=== PATIENT | female | born 1950 | race Caucasian/White ===

== ENCOUNTER 2019-01-09 12:05 | Inpatient (IN) ==
[2019-01-09] MEDS ORDERED: SODIUM CHLORIDE 0.9% 1000ML 1,000 ML IV ONE (12:33)
[2019-01-09] MEDS ORDERED: MoRPHine SULFATE 4 MG/ML 1 ML CARP\\VIAL IV STA (12:33)
[2019-01-09] MEDS ORDERED: ONDANSETRON INJ 2 MG/ML 2 ML VIAL IV STA ×2 (12:33→15:51)
[2019-01-09 13:09] LABS: Basophils # (auto) 0.03 K/uL (0-0.2); Basophils % (auto) 0.4 %; Eosinophils # (auto) 0.11 K/uL (0-0.5); Eosinophils % (auto) 1.5 %; Hematocrit (blood only) 34.8 % (37-47); Hemoglobin 11.5 g/dL (12.0-16.0); Immature Granulocytes # (auto) 0.01 K/uL (0.00-0.02); Immature Granulocytes % (auto) 0.1 %; Lymphocytes % (auto) 14.7 %; Mean Corpuscular Volume 87.9 fL (80-100); Mean Platelet Volume 9.8 fL (7.4-10.4); Monocytes # (auto) 0.36 K/uL (0.11-0.59); Monocytes % (auto) 4.8 %; Neutrophils # (auto) 5.89 K/uL (1.4-6.5); Neutrophils % (auto) 78.5 %; Platelet Count 192 K/uL (130-400); RDW Coefficient of Variation 15.1 % (11.5-14.5); RDW Standard Deviation 48.6 fL (36.4-46.3); Red Blood Count 3.96 M/uL (4.2-5.4)
[2019-01-09 13:20] LABS: Prothrombin Time 10.5 Seconds (9.0-12.0)
[2019-01-09 13:21] LABS: Appearance Urine Clear (Clear); Bilirubin Urine Negative (Negative); Blood Urine Negative (Negative); Color Urine Yellow; Glucose Urine UA Negative (Negative); Ketones Urine Negative (Negative); Leukocyte Esterase Urine Negative (Negative); Nitrite Urine Negative (Negative); Protein Urine Negative (Negative); Specific Gravity Urine 1.012 (1.000-1.030); Urobilinogen Urine Negative (Negative)
[2019-01-09 13:30] LABS: Alanine Aminotransferase 14 U/L (12-78); Albumin Level 3.9 gm/dl (3.4-5.0); Aspartate Aminotransferase 10 U/L (15-37); BUN Creatinine Ratio 10.6 (10-20); Blood Urea Nitrogen 7 mg/dl (7-18); Calcium 9.3 mg/dl (8.5-10.1); Carbon Dioxide 29 mmol/L (21-32); Chloride 105 mmol/L (98-107); Creatinine Clr Calc Pharmacy 67.3 ml/min; Est GFR (African American) 103.9; Est GFR (Non-African American) 89.7; Glucose 96 mg/dl (70-99); Potassium 3.7 mmol/L (3.5-5.1); Sodium 142 mmol/L (136-145)
[2019-01-09 13:34] LABS: Albumin Globulin Ratio 1.1 (0.9-2); Alkaline Phosphatase 66 U/L (45-117); Bilirubin,Total 0.3 mg/dl (0.2-1); Globulin 3.4 gm/dl (2.5-4.0); Total Protein 7.3 gm/dl (6.4-8.2); Troponin I < 0.015 ng/ml (0-0.045)
[2019-01-09] MEDS ORDERED: IOVERSOL 100ml IV PRN (14:17)
--- NOTE | 2019-01-09 15:17 | CT Scan Report ---
ABDOMEN AND PELVIS CT WITH IV CONTRAST CT DOSE: 323.00 mGy.cm HISTORY: Acute abdominal pain with nausea and vomiting abd pain, n/v TECHNIQUE: Multiaxial CT images of the abdomen and pelvis were performed following the use of intrave nous contrast. A dose lowering technique was utilized adhering to the principles of ALARA. COMPARISON STUDY: CT abdomen pelvis 12/04/2017. FINDINGS: Lung bases appear clear. No pneumatosis or pneumoperitoneum. The imaged inferior cardiac chambers ronnie ear unremarkable. Spleen, pancreas, adrenal glands and gallbladder appear unremarkable. The liver is also within normal limits. Kidneys and ureters are within normal limits. Partial distention of the bl adder with mild wall thickening. Postoperative changes from interval hysterectomy. No adnexal mass le sions. Moderate mixed plaque of the abdominal aorta without aneurysm. No adenopathy. Postoperative changes from recent partial sigmoid colon resection with colocolonic anastomosis. Anast omotic site appears intact. Mild to moderate fecal retention. Visualized appendix appears normal. Pos toperative changes from partial small bowel resection with [id number] anastomosis about the deep pe lvis on image 349 series 3. Dilated small bowel loops proximal to the anastomotic site with small bow el feces sign, bowel wall thickening, interloop edema with trace reactive ascites. Mild nonspecific n odularity is noted within the retroperitoneum adjacent to the descending colon suggestive of vascular structures or postoperative change. Postoperative changes of the ventral abdominal wall with mild st randing noted about the umbilical distribution. No drainable fluid collection. Degenerative changes o f the spine, pelvis and hips. No suspicious lytic or blastic bony lesions. Suggested filling defect n oted about the inferior mesenteric vein (for example see image 157 of series 3). IMPRESSION: 1. Postoperative changes from interval hysterectomy with partial sigmoid colon resection and partial small bowel resection with [id number] enteroenteric anastomosis about the central lower pelvis. Par tial small bowel obstruction with transition point at the anastomotic site is noted with dilated smal l bowel loops proximally with associated bowel wall thickening, mild interloop edema and trace reacti ve ascites. 2. No pneumatosis or pneumoperitoneum. 3. Mixing artifact versus thrombosis of the left inferior mesenteric vein. 4. Additional findings as above. Electronically signed by: Elton Nam M.D. 01/09/2019 3:15 PM
[2019-01-09] MEDS ORDERED: LORazepam 0.5 MG/1 ML VIAL IV STA (15:51)
--- NOTE | 2019-01-09 16:50 | History & Physical Report ---
Date of Service January 09, 2019 Assessment & Plan (1) Partial small bowel obstruction: -Admit to [facility] -Patient presenting from home with reports of abdominal pain that began this morning -In the ED, CT ABD/pelvis showing partial small bowel obstruction at anastomosis point of recent colon resection -Obstruction likely due to adhesions from recent surgery (DULCE MARIA-BSO, omentectomy, low anterior resection, small bowel resection on 10/27/2018 at [facility]) -Abdomen currently soft, no vomiting; will hold on NG at this time -Check lactic acid -Continue supportive care with n.p.o., IVF, pain and nausea control -Follow-up KUB in the morning -General surgery consult (2) Endometrial adenocarcinoma: -Underwent surgery as outlined above -Completed carbo/Taxol 09/2018 -To follow-up with Dr. Tree loza regarding starting maintenance chemotherapy (3) GERD (gastroesophageal reflux disease): (4) Barretts esophagus: -Continue PPI (5) Anxiety: -Continue citalopram (6) DVT prophylaxis: -SQ heparin History of Present Illness Chief Complaint: Abdominal pain Primary Care Provider: Whitney Black MD 68-year-old female who presents to the ED with abdominal pain. Patient underwent DULCE MARIA-BSO, omentectomy, low anterior resection, small bowel resection on 10/27/2018 at [facility] due to endometrial cancer involving the rectosigmoid colon. Postoperative course was complicated by pelvic abscess which required to drain placements and patient was treated with antibiotics. Drains have since been removed and patient completed antibiotics. She reports that ever since her init ial surgery, she has been having small, frequent bowel movements. She reports most the time they are formed however sometimes are loose. She reports going 7- 10 times per day. This morning, patient developed epigastric and lower abdominal pain. She reports she drank some coffee and then had emesis immediately following. She denies hematemesis or coffee-ground emesis. No bright bleeding per rectum or dark tarry stools. She denies abdominal distention. Last bowel movement was last evening. She denies fevers and chills. No chest pain or shortness of breath. She denies lightheadedness, d izziness, diaphoresis, syncopal events. No urinary symptoms. In the ED, CT ABD/pelvis is showing partial small bowel obstruction with transition point at the anastomotic site. Patient was given IVF, IV Zofran, IV morphine, IV lorazepam. Allergies Allergy/AdvReac Type Severity Reaction Status Date / Time Penicillins Allergy Severe FACIAL Verified 01/09/19 12:54 SWELLING, RASH Sulfa (Sulfonamide Allergy Severe VOMITING Verified 01/09/19 12:54 Antibiotics) Home Medications Home Medications Medication Instructions Recorded Confirmed Type citalopram 5 mg PO QAM 03/25/18 01/09/19 History qvrgbaaydpu-cdsidmetj-ais C-Mn 1 cap PO QAM 03/25/18 01/09/19 History [Glucosamine Chondroitin MaxStr] omeprazole 20 mg PO QAM 03/25/18 01/09/19 History gabapentin [Neurontin] 100 mg PO HS 09/25/18 01/09/19 History fluticasone propionate [Flonase 2 spray INTRANASAL DAILY PRN 01/09/19 01/09/19 History Allergy Relief] ibuprofen [Advil] 800 mg PO HS 01/09/19 01/09/19 History montelukast [Singulair] 10 mg PO DAILY PRN 01/09/19 01/09/19 History ondansetron HCl [Zofran] 8 mg PO TID PRN 01/09/19 01/09/19 History Past Med/Surg History Medical History Barretts esophagus (Chronic) Endometrial adenocarcinoma (Chronic) Anxiety (Chronic) GERD (gastroesophageal reflux disease) (Chronic) Hiatal hernia (Chronic) Diverticular disease (Chronic) Osteoarthritis (Chronic) Fatty liver disease, nonalcoholic (Chronic) Surgical History S/P small bowel resection (Chronic) S/P DULCE MARIA-BSO (Chronic) Status post chemotherapy (Chronic) PT REPORTS FIRST CHEMO TX 05/14/18 History of adenoidectomy (Chronic) History of tonsillectomy (Chronic) History of cataract surgery (Chronic) BILATERAL History of bilateral tubal ligation (Chronic) Family History Sister Family hx of colon cancer Father Heart disease Mother Heart disease Social History Preferred Language: Ecuadorean Communication Ability: Effective 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 Farm 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: No Beliefs That Will Affect Care: None Current Living Situation: Spouse Feels Safe at Home: Yes Smoking Status: Former smoker Tobacco Type: cigarettes ; Second Hand Exposure: No ; Hx Alcohol Use: No Hx Substance Use: No Review of Systems Review of Systems: ROS per HPI, all other systems reviewed and negative Physical Exam Constitutional: WD/WN, vitals as above Eyes: PERRL, conjunctivae normal, anicteric sclerae ENMT: external ear and nose normal, oropharynx normal Respiratory: normal respiratory effort, lungs clear to auscultation Cardiovascular: Rate/Rhythm: regular rate and regular rhythm Vessels: normal peripheral pulses Extremities: no edema Gastrointestinal (Abdomen): Inspection/Auscultation: abdomen not distended and + abnormal bowel sounds (Hypoactive) Percussion/Palpation: abdomen soft; abdomen nontender and no hepatosplenomegaly Musculoskeletal: no cyanosis or clubbing, extremities motor strength 5/5 Skin: no rashes, warm and dry Neurologic: PERRL, EOMI, accommodation nl, no face palsy, no dysarthria Psychiatric: A+Ox3, euthymic affect Results & Data Vital Signs (Past 12 Hours) Vital Signs Temp Pulse Pulse Resp BP BP Pulse Ox 01/09/19 14:30 75 18 137/66 94 01/09/19 13:40 64 20 142/73 H 94 01/09/19 13:02 94 01/09/19 12:19 36.6 C 78 16 174/96 H 98 Laboratory Results Short CBC 01/09/19 Range/Units 12:52 WBC 7.50 (4.8-10.8) K/uL Hgb 11.5 L (12.0-16.0) g/dL Hct 34.8 L (37-47) % Plt Count 192 (130-400) K/uL BMP 01/09/19 12:52 Sodium 142 Potassium 3.7 Chloride 105 Carbon Dioxide 29 BUN 7 Creatinine 0.70 Glucose 96 Calcium 9.3 Cardiac Enzymes 01/09/19 Range/Units 12:52 Troponin I < 0.015 (0-0.045) ng/ml Liver Function 01/09/19 Range/Units 12:52 Total Bilirubin 0.3 (0.2-1) mg/dl AST 10 L (15-37) U/L ALT 14 (12-78) U/L Alkaline Phosphatase 66 (45-117) U/L Albumin 3.9 (3.4-5.0) gm/dl Urine 01/09/19 Range/Units 13:08 Urine Color Yellow Urine Appearance Clear (Clear) Urine pH 5.0 (4.5-7.5) Ur Specific [place] 1.012 (1.000-1.030) Urine Protein Negative (Negative) Urine Glucose (UA) Negative (Negative) Diagnostic Findings CT ABD/PELVIS IMPRESSION: 1. Postoperative changes from interval hysterectomy with partial sigmoid colon resection and partial small bowel resection with [id number] enteroenteric anastomosis about the central lower pelvis. Partial small bowel obstruction with transition point at the anastomotic site is noted with dilated small bowel loops proximally with associated bowel wall thickening, mild interloop edema and trace reactive ascites. 2. No pneumatosis or pneumoperitoneum. 3. Mixing artifact versus thrombosis of the left inferior mesenteric vein. 4. Additional findings as above. Code Status & VTE Plan Code Status Patient is a full code as per my discussion with her. VTE Prophylaxis Plan VTE Prophylaxis will be ordered: Yes Supervising Physician Co-Signing Physician Notes Attending addendum: The patient was seen and examined in the emergency room She is a status post total abdominal hysterectomy with the bilateral salpingo- oophorectomy and low anterior resection with a small bowel resection on 27 October at [facility] for uterine cancer She has been complaining of abdominal pain some distention since this morning She has been feeling a little bit better with pain medications she does have nausea but no more vomiting Denies any fever and/or chills, any shortness of breath in the palpitation On examination No apparent distress at rest Hemodynamically stable Chest-clear to auscultate bilaterally Heart-S1-S2, regular Abdomen-soft, mildly distended, mildly tender mostly left lower quadrant, bowel sounds present Extremities-negative for any edema Admission labs and imaging studies reviewed Has partial small bowel obstruction at the anastomosis site complicated by adhesions Keep her n.p.o., IV fluids and pain medications Appreciate surgery input and recommendation Agree with assessment and plan as outlined above by Oksana Muir
[2019-01-09] MEDS ORDERED: PROMETHAZINE HCL 12.5 MG in SODIUM CHLORIDE 0.9% 50 ML IV PRN (17:09)
--- NOTE | 2019-01-09 17:18 | Emergency Department Note ---
Entered by Ceferino Amado acting as a scribe for History of Present Illness General Chief complaint: Abdominal Pain Stated complaint: ABDOMINAL PAIN Source: patient History of Present Illness Provider complaint: Abdominal pain Onset (ago): hour(s) (This morning) Location: abdomen Pain Consistency: + constant and + intermittent Maximum Pain Intensity: 6 Current Pain Intensity: 6 Quality: + sharp and + dull Relieved By: + none Exacerbated By: + none Associated symptoms: + nausea/vomiting; no fever/chills and no shortness of breath The patient is a 68 year old female who presents to the Emergency Room with comp laints of constant central abdominal pain that started this morning shortly after waking up. The patient states she drank a cup of coffee and shortly after she vomited. She notes she now has constant dull pain with intermittent sharp episodes that she rates a 6/10. The patient also notes that her stomach feels more distended then normal. She reports she was able to move her bowels yesterday but was not able to today because of the pain. Prior to arrival the patient did not take anything for pain but did try Metamucil with no success. The patient has a history of uterine cancer with her last chemotherapy appointment being in September. The patient notes she has had multiple bowel resections and had an infection following one of them. The patient denies any shortness of breath, fevers, or recent falls. Home Medications Home Medications Medication Instructions Recorded Confirmed Type citalopram 5 mg PO QAM 03/25/18 01/09/19 History esfkvzridzb-tdktktaze-nvq C-Mn 1 cap PO QAM 03/25/18 01/09/19 History [Glucosamine Chondroitin MaxStr] omeprazole 20 mg PO QAM 03/25/18 01/09/19 History gabapentin [Neurontin] 100 mg PO 09/25/18 01/09/19 History fluticasone propionate [Flonase 2 spray INTRANASAL DAILY PRN 01/09/19 01/09/19 History Allergy Relief] ibuprofen [Advil] 800 mg PO HS 01/09/19 01/09/19 History montelukast [Singulair] 10 mg PO DAILY PRN 01/09/19 01/09/19 History ondansetron HCl [Zofran] 8 mg PO TID PRN 01/09/19 01/09/19 History Allergies Allergy/AdvReac Type Severity Reaction Status Date / Time Penicillins Allergy Severe FACIAL Verified 01/09/19 12:54 SWELLING, RASH Sulfa (Sulfonamide Allergy Severe VOMITING Verified 01/09/19 12:54 Antibiotics) Past Med/Surg History Medical History Barretts esophagus (Chronic) Endometrial adenocarcinoma (Chronic) Anxiety (Chronic) GERD (gastroesophageal reflux disease) (Chronic) Hiatal hernia (Chronic) Diverticular disease (Chronic) Osteoarthritis (Chronic) Fatty liver disease, nonalcoholic (Chronic) Surgical History S/P small bowel resection (Chronic) DULCE MARIA-BSO, omenectomy, small bowel resection for endometrial adenocarcinoma involving rectosigmoid colon S/P DULCE MARIA-BSO (Chronic) Status post chemotherapy (Chronic) PT REPORTS FIRST CHEMO TX 05/14/18 History of adenoidectomy (Chronic) History of tonsillectomy (Chronic) History of cataract surgery (Chronic) BILATERAL History of bilateral tubal ligation (Chronic) Family History Sister Family hx of colon cancer Father Heart disease Mother Heart disease Social History Preferred Language: Telugu Communication Ability: Effective 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 and A total of 10 systems reviewed and were otherwise negative Physical Exam Vital Signs Vital Signs - 24 hr 01/09/19 12:19 01/09/19 13:02 01/09/19 13:40 Temperature 36.6 C Temperature Source Oral Sepsis Recent Fever Within 48 Hours No Sepsis New/Unexplained Change in Mental Status No Sepsis Action Taken by Nursing No Action Required Pulse Rate 78 Pulse Rate [Apical] 64 Respiratory Rate 16 20 Blood Pressure 174/96 H Blood Pressure [Right Arm] 142/73 H Blood Pressure Mean 122 Blood Pressure Mean [Right Arm] 96 Pulse Oximetry 98 94 94 Oxygen Delivery Method Room Air Room Air 01/09/19 14:30 Temperature Temperature Source Sepsis Recent Fever Within 48 Hours Sepsis New/Unexplained Change in Mental Status Sepsis Action Taken by Nursing Pulse Rate Pulse Rate [Apical] 75 Respiratory Rate 18 Blood Pressure Blood Pressure [Right Arm] 137/66 Blood Pressure Mean Blood Pressure Mean [Right Arm] 89 Pulse Oximetry 94 Oxygen Delivery Method GENERAL: Awake, alert, uncomfortable-appearing HENT: Normocephalic, atraumatic. EYES: Normal conjunctiva. Sclera non-icteric. NECK: Supple. No nuchal rigidity. RESPIRATORY: Clear to auscultation. No wheezes. Normal respiratory effort. CARDIAC: Normal rate. Normal rhythm. Extremities warm and well perfused. GI: Soft, non-distended. Mild epigastric tenderness. No rebound or guarding. No masses. Healed abdominal scars noted. RECTAL: Deferred. MUSCULOSKELETAL: Atraumatic. Chest examination reveals no tenderness. There is no CVA tenderness to palpation. LOWER EXTREMITIES: Calves are equal size bilaterally and non-tender. No edema NEURO: Normal sensorium. No sensory or motor deficits noted. No facial droop. SKIN: Warm and dry. No rash or jaundice noted. Course 1228: Past medical records reviewed. The patient was evaluated in room C1, and a complete history and physical examination were performed. 1523: I reevaluated and updated the patient with results obtained thus far. 1525: I spoke to Dr. Manny Johnson about the patient's case. He recommends conservative treatment and admission. 1534: I spoke to Oksana DWYER[facility], about the patient's case. They will be accepting the patient for further evaluation. 1551: I updated the patient on the treatment plan. She fully understands and is agreeable with the plan. Consultations Consultation #1: I spoke to Dr. Manny Johnson about the patient's case. He recommends conservative treatment and admission. Time: 15:25 Consultation #2: I spoke to Oksana DWYER, under Dr. Ashok Osuna Hospitalist, about the patient's case. They will be accepting the patient for further evaluation. Time: 15:34 Administered Medications Potassium Chloride/Dextrose/Sod Cl (D5nss + 20meq Kcl) 20 meq in 1,000 mls @ 125 mls/hr IV .Q8H NORBERTO Stop: 02/08/19 17:59 Last Admin: 01/09/19 18:10 Dose: 125 mls/hr Documented by: [id number] Discontinued Medications Sodium Chloride (Nss 1000ml) 1,000 mls @ 999 mls/hr IV .Q1H1M ONE Stop: 01/09/19 13:33 Last Infusion: 01/09/19 14:10 Dose: 0 mls/hr Documented by: [id number] Admin: 01/09/19 13:06 Dose: 999 mls/hr Documented by: [id number] Lorazepam (Ativan) 0.5 mg in 1 mls @ 1 mls/min IV NOW STA Stop: 01/09/19 15:52 Last Admin: 01/09/19 15:59 Dose: 1 mls/min Documented by: [id number] Ioversol (Optiray 320 100ml) 94 ml IV ONCE PRN PRN Reason: Interaction Checking Stop: 01/13/19 14:16 Last Admin: 01/09/19 14:18 Dose: 94 ml Documented by: [id number] Morphine Sulfate (Morphine Sulfate) 4 mg IV NOW STA Stop: 01/09/19 12:34 Last Admin: 01/09/19 13:06 Dose: 4 mg Documented by: [id number] Ondansetron HCl (Zofran) 4 mg IV NOW STA Stop: 01/09/19 12:34 Last Admin: 01/09/19 13:06 Dose: 4 mg Documented by: [id number] Ondansetron HCl (Zofran) 4 mg IV NOW STA Stop: 01/09/19 15:52 Last Admin: 01/09/19 16:00 Dose: 4 mg Documented by: [id number] Medical Decision Making Differential Diagnosis Differential diagnoses includes but is not limited to gastritis, peptic ulcer disease, GERD, gallbladder disease, pancreatitis, small bowel obstruction, acute coronary syndrome, pericarditis, ischemic bowel, irritable bowel disease, irritable bowel syndrome, appendicitis, diverticulitis, malignancy, hernia, urinary tract infection, torsion, perforation, trauma, infectious. Medical Records Attestation: I reviewed the patient's medical records. Home Medications Current Medication List: was personally reviewed by me Laboratory Data Attestation: I reviewed the patient's lab results. Result diagrams: 01/09/19 12:52 08/25/19 12:52 Lab Results 01/09/19 01/09/19 01/09/19 Range/Units 12:52 12:52 12:52 WBC 7.50 (4.8-10.8) K/uL RBC 3.96 L (4.2-5.4) M/uL Hgb 11.5 L (12.0-16.0) g/dL Hct 34.8 L (37-47) % MCV 87.9 (80-100) fL MCH 29.0 (25-34) pg MCHC 33.0 (32-36) g/dL RDW Std Deviation 48.6 H (36.4-46.3) fL RDW Coeff of Dianne 15.1 H (11.5-14.5) % Plt Count 192 (130-400) K/uL MPV 9.8 (7.4-10.4) fL Immature Gran % (Auto) 0.1 % Neut % (Auto) 78.5 % Lymph % (Auto) 14.7 % Harlan % (Auto) 4.8 % Eos % (Auto) 1.5 % Baso % (Auto) 0.4 % Immature Gran # (Auto) 0.01 (0.00-0.02) K/uL Neut # (Auto) 5.89 (1.4-6.5) K/uL Lymph # (Auto) 1.10 L (1.2-3.4) K/uL Harlan # (Auto) 0.36 (0.11-0.59) K/uL Eos # (Auto) 0.11 (0-0.5) K/uL Baso # (Auto) 0.03 (0-0.2) K/uL PT 10.5 (9.0-12.0) Seconds INR 1.0 (0.9-1.1) Sodium 142 (136-145) mmol/L Potassium 3.7 (3.5-5.1) mmol/L Chloride 105 (98-107) mmol/L Carbon Dioxide 29 (21-32) mmol/L Anion Gap 8.0 (3-11) BUN 7 (7-18) mg/dl Creatinine 0.70 (0.6-1.2) mg/dl Est Cr Clr Drug Dosing 67.3 ml/min Est GFR ( Amer) 103.9 Est GFR (Non-Af Amer) 89.7 BUN/Creatinine Ratio 10.6 (10-20) Glucose 96 (70-99) mg/dl Lactate (0.4-2.0) mmol/L Calcium 9.3 (8.5-10.1) mg/dl Total Bilirubin 0.3 (0.2-1) mg/dl AST 10 L (15-37) U/L ALT 14 (12-78) U/L Alkaline Phosphatase 66 (45-117) U/L Troponin I < 0.015 (0-0.045) ng/ml Total Protein 7.3 (6.4-8.2) gm/dl Albumin 3.9 (3.4-5.0) gm/dl Globulin 3.4 (2.5-4.0) gm/dl Albumin/Globulin Ratio 1.1 (0.9-2) Lipase 91 (73-393) U/L Urine Color Urine Appearance (Clear) Urine pH (4.5-7.5) Ur Specific [place] (1.000-1.030) Urine Protein (Negative) Urine Glucose (UA) (Negative) Urine Ketones (Negative) Urine Blood (Negative) Urine Nitrite (Negative) Urine Bilirubin (Negative) Urine Urobilinogen (Negative) Ur Leukocyte Esterase (Negative) 01/09/19 01/09/19 Range/Units 12:52 13:08 WBC (4.8-10.8) K/uL RBC (4.2-5.4) M/uL Hgb (12.0-16.0) g/dL Hct (37-47) % MCV (80-100) fL MCH (25-34) pg MCHC (32-36) g/dL RDW Std Deviation (36.4-46.3) fL RDW Coeff of Dianne (11.5-14.5) % Plt Count (130-400) K/uL MPV (7.4-10.4) fL Immature Gran % (Auto) % Neut % (Auto) % Lymph % (Auto) % Harlan % (Auto) % Eos % (Auto) % Baso % (Auto) % Immature Gran # (Auto) (0.00-0.02) K/uL Neut # (Auto) (1.4-6.5) K/uL Lymph # (Auto) (1.2-3.4) K/uL Harlan # (Auto) (0.11-0.59) K/uL Eos # (Auto) (0-0.5) K/uL Baso # (Auto) (0-0.2) K/uL PT (9.0-12.0) Seconds INR (0.9-1.1) Sodium (136-145) mmol/L Potassium (3.5-5.1) mmol/L Chloride (98-107) mmol/L Carbon Dioxide (21-32) mmol/L Anion Gap (3-11) BUN (7-18) mg/dl Creatinine (0.6-1.2) mg/dl Est Cr Clr Drug Dosing ml/min Est GFR ( Amer) Est GFR (Non-Af Amer) BUN/Creatinine Ratio (10-20) Glucose (70-99) mg/dl Lactate 0.8 (0.4-2.0) mmol/L Calcium (8.5-10.1) mg/dl Total Bilirubin (0.2-1) mg/dl AST (15-37) U/L ALT (12-78) U/L Alkaline Phosphatase (45-117) U/L Troponin I (0-0.045) ng/ml Total Protein (6.4-8.2) gm/dl Albumin (3.4-5.0) gm/dl Globulin (2.5-4.0) gm/dl Albumin/Globulin Ratio (0.9-2) Lipase (73-393) U/L Urine Color Yellow Urine Appearance Clear (Clear) Urine pH 5.0 (4.5-7.5) Ur Specific [place] 1.012 (1.000-1.030) Urine Protein Negative (Negative) Urine Glucose (UA) Negative (Negative) Urine Ketones Negative (Negative) Urine Blood Negative (Negative) Urine Nitrite Negative (Negative) Urine Bilirubin Negative (Negative) Urine Urobilinogen Negative (Negative) Ur Leukocyte Esterase Negative (Negative) Imaging Data Radiologist's Impression: Radiology results as stated below per my review and the radiologist's interpretation: ABDOMEN AND PELVIS CT WITH IV CONTRAST CT DOSE: 323.00 mGy.cm HISTORY: Acute abdominal pain with nausea and vomiting abd pain, n/v TECHNIQUE: Multiaxial CT images of the abdomen and pelvis were performed following the use of intravenous contrast. A dose lowering technique was utilized adhering to the principles of ALA. COMPARISON STUDY: CT abdomen pelvis 12/04/2017. FINDINGS: Lung bases appear clear. No pneumatosis or pneumoperitoneum. The imaged inferior cardiac chambers appear unremarkable. Spleen, pancreas, adrenal glands and gallbladder appear unremarkable. The liver is also within normal limits. Kidneys and ureters are within normal limits. Partial distention of the bladder with mild wall thickening. Postoperative changes from interval hysterectomy. No adnexal mass lesions. Moderate mixed plaque of the abdominal aorta without aneurysm. No adenopathy. Postoperative changes from recent partial sigmoid colon resection with colocolonic anastomosis. Anastomotic site appears intact. Mild to moderate fecal retention. Visualized appendix appears normal. Postoperative changes from partial small bowel resection with [id number] anastomosis about the deep pelvis on image 349 series 3. Dilated small bowel loops proximal to the anastomotic site with small bowel feces sign, bowel wall thickening, interloop edema with trace reactive ascites. Mild nonspecific nodularity is noted within the retroperitoneum adjacent to the descending colon suggestive of vascular structures or postoperative change. Postoperative changes of the ventral abdominal wall with mild stranding noted about the umbilical distribution. No drainable fluid collection. Degenerative changes of the spine, pelvis and hips. No suspicious lytic or blastic bony lesions. Suggested filling defect noted about the inferior mesenteric vein (for example see image 157 of series 3). IMPRESSION: 1. Postoperative changes from interval hysterectomy with partial sigmoid colon resection and partial small bowel resection with [id number] enteroenteric anastomosis about the central lower pelvis. Partial small bowel obstruction with transition point at the anastomotic site is noted with dilated small bowel loops proximally with associated bowel wall thickening, mild interloop edema and trace reactive ascites. 2. No pneumatosis or pneumoperitoneum. 3. Mixing artifact versus thrombosis of the left inferior mesenteric vein. 4. Additional findings as above. Electronically signed by: Elton Nam M.D. 01/09/2019 3:15 PM ECG Data Attestation: I personally reviewed and interpreted this ECG as follows: Indication: abdominal pain Rate (beats per minute): 67 Rhythm: normal sinus Findings: + left axis deviation; no PVC, no ST depression and no ST elevation Comparison ECG Date: from (09/25/2018) Change: no significant change Blood Pressure Blood Pressure Findings: Normal blood pressure MDM Narrative Patient is 68-year-old female with an unfortunate history of uterine cancer status post chemotherapy and multiple bowel resections presented with sudden onset of upper abdominal pain. Denies any trauma or fever. Endorses nausea and vomiting. Last bowel movement yesterday states diffuse anterior abdominal pain lower with some slight upper tenderness. Well-appearing here on exam. Basic labs were obtained as well as EKG had a CT the abdomen pelvis was ordered. EKG and troponin completed to exclude ACS although I think this is less likely. Doubt this represents PE. Laboratory studies here are unremarkable. EKG is unchanged. No evidence of hepatitis or pancreatitis. CT scan was completed to evaluate for possible intra-abdominal pathology such SBO. Urinalysis is negative. The patient is not leukopenic. Labs are otherwise reassuring. CT unfortunately does show evidence of an SBO around the small bowel anastomosis. Some trace ascites. No severe dilation is noted. Discussed with general surgery here especially given her history of complex surgery. However has been doing well postoperatively since November. We will begin with conservative treatment with him he is status and IV hydration. Surgery was agreeable to watch her here however if any deterioration or need for surgery will require transfer to [place]. Patient was agreed with this. Discussed with the medicine service. There is a question of mixing versus venous thrombus and given her symptoms have lower suspicion this represents acute vascular com promise at this time. Can continue to be followed. Impression & Plan Small bowel obstruction, Abdominal pain Discharge Plan Visit Data *Final* Discharge Date/Time: 01/09/19 17:06 Chief Complaint: Abdominal Pain Stated Complaint: ABDOMINAL PAIN ED Provider: Jason Robertson Discharge Problem: Small bowel obstruction, Abdominal pain Patient Disposition: Admitted As Inpatient Discharge Instructions Interventions: ED Discharge Assessment Last Done: 01/09/19 17:06 Discharge Problem: Abdominal pain Qualifiers: Abdominal location: generalized Qualified Code(s): R10.84 - Generalized abdominal pain The scribe's documentation has been prepared under my direction and personally reviewed by me in its entirety. I confirm that the note above accurately reflects all work, treatment, procedures, and medical decision making performed by me.
[2019-01-09] MEDS: D5NSS + 20MEQ KCL 20 MEQ/1,000 ML BAG IV SCH (18:10)
[2019-01-09] MEDS: MoRPHine SULFATE 4 MG/ML 1 ML CARP\\VIAL IV PRN ×2 (19:06→22:51)
[2019-01-09] MEDS: HEPARIN SOD 5,000 UNIT/0.5 ML VIAL SQ SCH (21:34)
[2019-01-09] MEDS: GABAPENTIN 100 MG CAP PO SCH (21:34)
[2019-01-10] MEDS: D5NSS + 20MEQ KCL 20 MEQ/1,000 ML BAG IV SCH ×3 (01:55→17:21)
[2019-01-10 05:03] LABS: Hematocrit (blood only) 29.8 % (37-47); Hemoglobin 9.6 g/dL (12.0-16.0); Mean Corpuscular Hgb Conc 32.2 g/dL (32-36); Mean Corpuscular Volume 89.2 fL (80-100); Mean Platelet Volume 9.1 fL (7.4-10.4); Platelet Count 162 K/uL (130-400); RDW Coefficient of Variation 15.1 % (11.5-14.5); RDW Standard Deviation 49.7 fL (36.4-46.3); Red Blood Count 3.34 M/uL (4.2-5.4); White Blood Count 4.83 K/uL (4.8-10.8)
[2019-01-10 05:18] LABS: Calcium 8.3 mg/dl (8.5-10.1); Creatinine Clr Calc Pharmacy 77.3 ml/min; Est GFR (African American) 108.7; Est GFR (Non-African American) 93.8; Magnesium 1.7 mg/dl (1.8-2.4); Potassium 3.9 mmol/L (3.5-5.1)
[2019-01-10] MEDS: HEPARIN SOD 5,000 UNIT/0.5 ML VIAL SQ SCH ×3 (06:06→22:11)
--- NOTE | 2019-01-10 07:25 | XRay Report ---
XR KUB/Abdomen 1 view CLINICAL HISTORY: 68 years-old Female presenting with SBO. TECHNIQUE: Single supine view of the abdomen was obtained. COMPARISON: CT from 01/09/2019. FINDINGS: Anastomotic suture lines noted in the pelvis. Moderate stool burden in the right colon. A loop of sma ll bowel in the right mid abdomen has an apparent diameter of 3.4 cm though this may be affected by m agnification. No gross pneumoperitoneum. Allowing for bowel gas and stool, no calcifications to suggest nephrolithiasis. Urinary bladder is op acified with excreted contrast. Degenerative changes of the spine. Elevation of the right hemidiaphragm. IMPRESSION: 1. Gaseous distention of small bowel in the right mid abdomen, which suggests some degree of persist ent small bowel obstruction. Continued follow-up recommended. Electronically signed by: Carlito Camacho M.D. 01/10/2019 7:23 AM
[2019-01-10] MEDS: PANTOprazole 40 MG TAB PO SCH (08:52)
[2019-01-10] MEDS: CITALOPRAM 20 MG TAB PO SCH (08:52)
--- NOTE | 2019-01-10 11:22 | Surgery Consultation ---
Date of Consultation January 10, 2019 Assessment & Plan (1) Partial small bowel obstruction: 68 year-old female presented to ER with abdominal pain , nausea and vomiting x 1. History of total abdominal hysterectomy with BSO, omentectomy, low anterior resection and partial small bowel resection in setting of endometrial carcinoma at [facility] in October of this year. CT scan showing partial SBO with transition point at the small bowel anastomosis. Abdomen is soft, nondistended, generalized tenderness. passing flatus but now bowel movement. No leukocytosis. Plan: Continue conservative management : NPO, IV fluids, pain management as needed, IV Zofran as needed Follow am labs while npo encouraged ambulation If patient does not progress with conservative management , she may require surgical intervention which would recommend transfer to [facility] given her recent surgery in October will follow along Dr. Oscar has seen patient, present during my examination, and agrees with above History of Present Illness Reason for Consultation: SBO Requesting Physician: MD Wood Attending Physician: Param Muir MD History of Present Illness 68 year-old female who presented to emergency department with complaint of generalized abdominal pain with nausea and vomiting x 1. States she never had this type of pain before. Had recent total abdominal hysterectomy with BSO, low anterior resection, omentectomy, and small bowel resection at [facility] in October for extension of her endometrial cancer. She never had prior SBO. States she has had recent small bowel movements 7-8 times per day which is unusual for her. CT scan showing partial small bowel obstruction with transition point at the anastomotic site is noted with dilated small bowel loops proximally with associated bowel wall thickening, mild interloop edema and trace reactive ascites. Maria Alejandra states she is feeling slightly better compared to admission. She is passing flatus. No bowel movement yet. No further nausea or vomiting. KUB this morning showing distended small bowel with moderate amount of stool in the r ight colon. Labs this morning showing no leukocytosis. Allergies Allergy/AdvReac Type Severity Reaction Status Date / Time Penicillins Allergy Severe FACIAL Verified 01/09/19 12:54 SWELLING, RASH Sulfa (Sulfonamide Allergy Severe VOMITING Verified 01/09/19 12:54 Antibiotics) Home Medications Home Medications Medication Instructions Recorded Confirmed Type citalopram 5 mg PO QAM 03/25/18 01/09/19 History [id number]-[id number]-pig C-Mn 1 cap PO QAM 03/25/18 01/09/19 History [Glucosamine Chondroitin MaxStr] omeprazole 20 mg PO QAM 03/25/18 01/09/19 History gabapentin [Neurontin] 100 mg PO HS 09/25/18 01/09/19 History fluticasone propionate [Flonase 2 spray INTRANASAL DAILY PRN 01/09/19 01/09/19 History Allergy Relief] ibuprofen [Advil] 800 mg PO HS 01/09/19 01/09/19 History montelukast [Singulair] 10 mg PO DAILY PRN 01/09/19 01/09/19 History ondansetron HCl [Zofran] 8 mg PO TID PRN 01/09/19 01/09/19 History Patient History Medical History Barretts esophagus (Chronic) Endometrial adenocarcinoma (Chronic) Anxiety (Chronic) GERD (gastroesophageal reflux disease) (Chronic) Hiatal hernia (Chronic) Diverticular disease (Chronic) Osteoarthritis (Chronic) Fatty liver disease, nonalcoholic (Chronic) Surgical History S/P small bowel resection (Chronic) DULCE MARIA-BSO, omenectomy, small bowel resection for endometrial adenocarcinoma involving rectosigmoid colon S/P DULCE MARIA-BSO (Chronic) Status post chemotherapy (Chronic) PT REPORTS FIRST CHEMO TX 05/14/18 History of adenoidectomy (Chronic) History of tonsillectomy (Chronic) History of cataract surgery (Chronic) BILATERAL History of bilateral tubal ligation (Chronic) Family History Sister Family hx of colon cancer Father Heart disease Mother Heart disease Social History Preferred Language: Georgian Communication Ability: Effective Decommissioning Well Site Manager Required: No Beliefs That Will Affect Care: None Current Living Situation: Family Other Information That Helps Us Care for You: No Feels Safe at Home: Yes Safety Concerns: Feels Safe At This Time Smoking Status: Never smoker Tobacco Type: cigarettes ; Do You Dip or Chew Tobacco: No ; Second Hand Exposure: No ; Hx Alcohol Use: No Hx Substance Use: No Review of Systems Review of Systems: All systems reviewed & are unremarkable except as noted in HPI & below Physical Exam Constitutional: WD/WN, vitals as above not ill appearing Respiratory: normal respiratory effort, lungs clear to auscultation no respiratory distress and no labored breathing Cardiovascular: RRR, no murmur, no edema Gastrointestinal (Abdomen): Inspection/Auscultation: abdomen normal to inspection; abdomen not distended and + abnormal bowel sounds Percussion/Palpation: + abdomen tender (RLQ) and abdomen soft; no guarding and abdomen not rigid Skin: no rashes, warm and dry Psychiatric: A+Ox3, euthymic affect Results & Data Vital Signs (Past 12 Hours) Vital Signs Temp Pulse Resp BP Pulse Ox 01/10/19 07:17 36.5 C 59 L 16 113/70 95 Laboratory Results 01/10/19 01/10/19 01/10/19 Range/Units 04:46 04:46 04:46 WBC 4.83 (4.8-10.8) K/uL RBC 3.34 L (4.2-5.4) M/uL Hgb 9.6 L (12.0-16.0) g/dL Hct 29.8 L (37-47) % MCV 89.2 (80-100) fL MCH 28.7 (25-34) pg MCHC 32.2 (32-36) g/dL RDW Std Deviation 49.7 H (36.4-46.3) fL RDW Coeff of Dianne 15.1 H (11.5-14.5) % Plt Count 162 (130-400) K/uL MPV 9.1 (7.4-10.4) fL Immature Gran % (Auto) % Neut % (Auto) % Lymph % (Auto) % [place] % (Auto) % Eos % (Auto) % Baso % (Auto) % Immature Gran # (Auto) (0.00-0.02) K/uL Neut # (Auto) (1.4-6.5) K/uL Lymph # (Auto) (1.2-3.4) K/uL [place] # (Auto) (0.11-0.59) K/uL Eos # (Auto) (0-0.5) K/uL Baso # (Auto) (0-0.2) K/uL PT (9.0-12.0) Seconds INR (0.9-1.1) Sodium 147 H (136-145) mmol/L Potassium 3.9 (3.5-5.1) mmol/L Chloride 112 H (98-107) mmol/L Carbon Dioxide 29 (21-32) mmol/L Anion Gap 6.0 (3-11) BUN 5 L (7-18) mg/dl Creatinine 0.61 (0.6-1.2) mg/dl Est Cr Clr Drug Dosing 77.3 ml/min Est GFR ( Amer) 108.7 Est GFR (Non-Af Amer) 93.8 BUN/Creatinine Ratio 9.0 L (10-20) Glucose 115 H (70-99) mg/dl Lactate (0.4-2.0) mmol/L Calcium 8.3 L (8.5-10.1) mg/dl Magnesium 1.7 L (1.8-2.4) mg/dl Total Bilirubin (0.2-1) mg/dl AST (15-37) U/L ALT (12-78) U/L Alkaline Phosphatase (45-117) U/L Troponin I (0-0.045) ng/ml Total Protein (6.4-8.2) gm/dl Albumin (3.4-5.0) gm/dl Globulin (2.5-4.0) gm/dl Albumin/Globulin Ratio (0.9-2) Lipase (73-393) U/L Urine Color Urine Appearance (Clear) Urine pH (4.5-7.5) Ur Specific [place] (1.000-1.030) Urine Protein (Negative) Urine Glucose (UA) (Negative) Urine Ketones (Negative) Urine Blood (Negative) Urine Nitrite (Negative) Urine Bilirubin (Negative) Urine Urobilinogen (Negative) Ur Leukocyte Esterase (Negative) Hepatitis C Ab Screen Neg (Neg) 01/09/19 01/09/19 01/09/19 Range/Units 16:16 13:08 12:52 WBC (4.8-10.8) K/uL RBC (4.2-5.4) M/uL Hgb (12.0-16.0) g/dL Hct (37-47) % MCV (80-100) fL MCH (25-34) pg MCHC (32-36) g/dL RDW Std Deviation (36.4-46.3) fL RDW Coeff of Dianne (11.5-14.5) % Plt Count (130-400) K/uL MPV (7.4-10.4) fL Immature Gran % (Auto) % Neut % (Auto) % Lymph % (Auto) % [place] % (Auto) % Eos % (Auto) % Baso % (Auto) % Immature Gran # (Auto) (0.00-0.02) K/uL Neut # (Auto) (1.4-6.5) K/uL Lymph # (Auto) (1.2-3.4) K/uL [place] # (Auto) (0.11-0.59) K/uL Eos # (Auto) (0-0.5) K/uL Baso # (Auto) (0-0.2) K/uL PT (9.0-12.0) Seconds INR (0.9-1.1) Sodium (136-145) mmol/L Potassium (3.5-5.1) mmol/L Chloride (98-107) mmol/L Carbon Dioxide (21-32) mmol/L Anion Gap (3-11) BUN (7-18) mg/dl Creatinine (0.6-1.2) mg/dl Est Cr Clr Drug Dosing ml/min Est GFR ( Amer) Est GFR (Non-Af Amer) BUN/Creatinine Ratio (10-20) Glucose (70-99) mg/dl Lactate 1.0 0.8 (0.4-2.0) mmol/L Calcium (8.5-10.1) mg/dl Magnesium (1.8-2.4) mg/dl Total Bilirubin (0.2-1) mg/dl AST (15-37) U/L ALT (12-78) U/L Alkaline Phosphatase (45-117) U/L Troponin I (0-0.045) ng/ml Total Protein (6.4-8.2) gm/dl Albumin (3.4-5.0) gm/dl Globulin (2.5-4.0) gm/dl Albumin/Globulin Ratio (0.9-2) Lipase (73-393) U/L Urine Color Yellow Urine Appearance Clear (Clear) Urine pH 5.0 (4.5-7.5) Ur Specific [place] 1.012 (1.000-1.030) Urine Protein Negative (Negative) Urine Glucose (UA) Negative (Negative) Urine Ketones Negative (Negative) Urine Blood Negative (Negative) Urine Nitrite Negative (Negative) Urine Bilirubin Negative (Negative) Urine Urobilinogen Negative (Negative) Ur Leukocyte Esterase Negative (Negative) Hepatitis C Ab Screen (Neg) 01/09/19 01/09/19 01/09/19 Range/Units 12:52 12:52 12:52 WBC 7.50 (4.8-10.8) K/uL RBC 3.96 L (4.2-5.4) M/uL Hgb 11.5 L (12.0-16.0) g/dL Hct 34.8 L (37-47) % MCV 87.9 (80-100) fL MCH 29.0 (25-34) pg MCHC 33.0 (32-36) g/dL RDW Std Deviation 48.6 H (36.4-46.3) fL RDW Coeff of Dianne 15.1 H (11.5-14.5) % Plt Count 192 (130-400) K/uL MPV 9.8 (7.4-10.4) fL Immature Gran % (Auto) 0.1 % Neut % (Auto) 78.5 % Lymph % (Auto) 14.7 % [place] % (Auto) 4.8 % Eos % (Auto) 1.5 % Baso % (Auto) 0.4 % Immature Gran # (Auto) 0.01 (0.00-0.02) K/uL Neut # (Auto) 5.89 (1.4-6.5) K/uL Lymph # (Auto) 1.10 L (1.2-3.4) K/uL [place] # (Auto) 0.36 (0.11-0.59) K/uL Eos # (Auto) 0.11 (0-0.5) K/uL Baso # (Auto) 0.03 (0-0.2) K/uL PT 10.5 (9.0-12.0) Seconds INR 1.0 (0.9-1.1) Sodium 142 (136-145) mmol/L Potassium 3.7 (3.5-5.1) mmol/L Chloride 105 (98-107) mmol/L Carbon Dioxide 29 (21-32) mmol/L Anion Gap 8.0 (3-11) BUN 7 (7-18) mg/dl Creatinine 0.70 (0.6-1.2) mg/dl Est Cr Clr Drug Dosing 67.3 ml/min Est GFR ( Amer) 103.9 Est GFR (Non-Af Amer) 89.7 BUN/Creatinine Ratio 10.6 (10-20) Glucose 96 (70-99) mg/dl Lactate (0.4-2.0) mmol/L Calcium 9.3 (8.5-10.1) mg/dl Magnesium (1.8-2.4) mg/dl Total Bilirubin 0.3 (0.2-1) mg/dl AST 10 L (15-37) U/L ALT 14 (12-78) U/L Alkaline Phosphatase 66 (45-117) U/L Troponin I < 0.015 (0-0.045) ng/ml Total Protein 7.3 (6.4-8.2) gm/dl Albumin 3.9 (3.4-5.0) gm/dl Globulin 3.4 (2.5-4.0) gm/dl Albumin/Globulin Ratio 1.1 (0.9-2) Lipase 91 (73-393) U/L Urine Color Urine Appearance (Clear) Urine pH (4.5-7.5) Ur Specific [place] (1.000-1.030) Urine Protein (Negative) Urine Glucose (UA) (Negative) Urine Ketones (Negative) Urine Blood (Negative) Urine Nitrite (Negative) Urine Bilirubin (Negative) Urine Urobilinogen (Negative) Ur Leukocyte Esterase (Negative) Hepatitis C Ab Screen (Neg) Diagnostic Findings ABDOMEN AND PELVIS CT WITH IV CONTRAST CT DOSE: 323.00 mGy.cm HISTORY: Acute abdominal pain with nausea and vomiting abd pain, n/v TECHNIQUE: Multiaxial CT images of the abdomen and pelvis were performed following the use of intravenous contrast. A dose lowering technique was utilized adhering to the principles of ALARA. COMPARISON STUDY: CT abdomen pelvis 12/04/2017. FINDINGS: Lung bases appear clear. No pneumatosis or pneumoperitoneum. The imaged inferior cardiac chambers appear unremarkable. Spleen, pancreas, adrenal glands and gallbladder appear unremarkable. The liver is also within normal limits. Kidneys and ureters are within normal limits. Partial distention of the bladder with mild wall thickening. Postoperative changes from interval hysterectomy. No adnexal mass lesions. Moderate mixed plaque of the abdominal aorta without aneurysm. No adenopathy. Postoperative changes from recent partial sigmoid colon resection with colocolonic anastomosis. Anastomotic site appears intact. Mild to moderate fecal retention. Visualized appendix appears normal. Postoperative changes from partial small bowel resection with [id number] anastomosis about the deep pelvis on image 349 series 3. Dilated small bowel loops proximal to the anastomotic site with small bowel feces sign, bowel wall thickening, interloop edema with trace reactive ascites. Mild nonspecific nodularity is noted within the retroperitoneum adjacent to the descending colon suggestive of vascular structures or postoperative change. Postoperative changes of the ventral abdominal wall with mild stranding noted about the umbilical distribution. No drainable fluid collection. Degenerative changes of the spine, pelvis and hips. No suspicious lytic or blastic bony lesions. Suggested filling defect noted about the inferior mesenteric vein (for example see image 157 of series 3). IMPRESSION: 1. Postoperative changes from interval hysterectomy with partial sigmoid colon resection and partial small bowel resection with [id number] enteroenteric anastomosis about the central lower pelvis. Partial small bowel obstruction with transition point at the anastomotic site is noted with dilated small bowel loops proximally with associated bowel wall thickening, mild interloop edema and trace reactive ascites. 2. No pneumatosis or pneumoperitoneum. 3. Mixing artifact versus thrombosis of the left inferior mesenteric vein. 4. Additional findings as above. XR KUB/Abdomen 1 view CLINICAL HISTORY: 68 years-old Female presenting with SBO. TECHNIQUE: Single supine view of the abdomen was obtained. COMPARISON: CT from 01/09/2019. FINDINGS: Anastomotic suture lines noted in the pelvis. Moderate stool burden in the right colon. A loop of small bowel in the right mid abdomen has an apparent diameter of 3.4 cm though this may be affected by magnification. No gross pneumoperitoneum. Allowing for bowel gas and stool, no calcifications to suggest nephrolithiasis. Urinary bladder is opacified with excreted contrast. Degenerative changes of the spine. Elevation of the right hemidiaphragm. IMPRESSION: 1. Gaseous distention of small bowel in the right mid abdomen, which suggests some degree of persistent small bowel obstruction. Continued follow-up recommended.
[2019-01-10] MEDS ORDERED: HEPARIN 100 UNIT/ML 5ML FLUSH FLUSH SCH (13:15)
[2019-01-10] MEDS ORDERED: HEPARIN 100 UNIT/ML 5ML FLUSH FLUSH PRN (13:38)
[2019-01-10] MEDS: ACETAMINOPHEN 325 MG TAB PO PRN (19:26)
[2019-01-10] MEDS: GABAPENTIN 100 MG CAP PO SCH (20:25)
[2019-01-11] MEDS: D5NSS + 20MEQ KCL 20 MEQ/1,000 ML BAG IV SCH ×3 (01:30→17:03)
[2019-01-11] MEDS: HEPARIN SOD 5,000 UNIT/0.5 ML VIAL SQ SCH ×3 (05:15→21:27)
[2019-01-11] MEDS: CITALOPRAM 20 MG TAB PO SCH (08:19)
[2019-01-11] MEDS: PANTOprazole 40 MG TAB PO SCH (08:19)
[2019-01-11 09:49] LABS: Basophils # (auto) 0.01 K/uL (0-0.2); Basophils % (auto) 0.3 %; Eosinophils % (auto) 2.5 %; Hematocrit (blood only) 29.3 % (37-47); Hemoglobin 9.6 g/dL (12.0-16.0); Lymphocytes # (auto) 1.35 K/uL (1.2-3.4); Mean Corpuscular Hgb Conc 32.8 g/dL (32-36); Mean Corpuscular Volume 88.8 fL (80-100); Mean Platelet Volume 9.5 fL (7.4-10.4); Monocytes % (auto) 7.6 %; Neutrophils # (auto) 2.21 K/uL (1.4-6.5); Neutrophils % (auto) 55.6 %; Platelet Count 140 K/uL (130-400); RDW Standard Deviation 48.9 fL (36.4-46.3); White Blood Count 3.97 K/uL (4.8-10.8)
--- NOTE | 2019-01-11 10:03 | Surgery Progress Note ---
Date of Service January 11, 2019 Assessment & Plan (1) Partial small bowel obstruction: 68 year-old female presented to ER with abdominal pain , nausea and vomiting x 1. History of total abdominal hysterectomy with BSO, omentectomy, low anterior resection and partial small bowel resection in setting [place] [facility] [place] this [place]. CT scan showing partial SBO with transition point at the small bowel anastomosis. Abdomen is soft, nondistended, tenderness in RLQ. + bowel movement this morning. Repeat KUB ordered (had moderate stool in right colon on KUB yesterday). Labs ordered for this morning. Plan: Clear liquids, take slowly await KUB results , may need bowel regimen given amount of stool in Right colon on KUB yesterday encouraged ambulation in hallway Continue medical management Dr. Oscar has seen patient, agrees with above Subjective feeling better today had bowel movement this morning, moderate in size and formed, not passing much gas no nausea or vomiting ambulating hallway Physical Exam Constitutional: WD/WN, vitals as above no acute distress Gastrointestinal (Abdomen): Inspection/Auscultation: abdomen normal to inspection and + abdominal surgical scar (midline laparotomy scar present); abdomen not distended Percussion/Palpation: + abdomen tender (RLQ) and abdomen soft; no guarding and abdomen not rigid Skin: no rashes, warm and dry Psychiatric: A+Ox3, euthymic affect Results & Data Vital Signs (Past 12 Hours) Vital Signs Temp Pulse Resp BP Pulse Ox 01/11/19 07:00 36.5 C 63 16 148/80 H 99 01/10/19 23:03 36.8 C 60 16 123/71 96 Laboratory Results 01/11/19 01/11/19 01/10/19 Range/Units 09:33 09:33 04:46 WBC 3.97 L (4.8-10.8) K/uL RBC 3.30 L (4.2-5.4) M/uL Hgb 9.6 L (12.0-16.0) g/dL Hct 29.3 L (37-47) % MCV 88.8 (80-100) fL MCH 29.1 (25-34) pg MCHC 32.8 (32-36) g/dL RDW Std Deviation 48.9 H (36.4-46.3) fL RDW Coeff of Dianne 15.0 H (11.5-14.5) % Plt Count 140 (130-400) K/uL MPV 9.5 (7.4-10.4) fL Immature Gran % (Auto) 0.0 % Neut % (Auto) 55.6 % Lymph % (Auto) 34.0 % [place] % (Auto) 7.6 % Eos % (Auto) 2.5 % Baso % (Auto) 0.3 % Immature Gran # (Auto) 0.00 (0.00-0.02) K/uL Neut # (Auto) 2.21 (1.4-6.5) K/uL Lymph # (Auto) 1.35 (1.2-3.4) K/uL [place] # (Auto) 0.30 (0.11-0.59) K/uL Eos # (Auto) 0.10 (0-0.5) K/uL Baso # (Auto) 0.01 (0-0.2) K/uL Sodium Pending Potassium Pending Chloride Pending Carbon Dioxide Pending Anion Gap Pending BUN Pending Creatinine Pending Est Cr Clr Drug Dosing Pending Est GFR ( Amer) Pending Est GFR (Non-Af Amer) Pending BUN/Creatinine Ratio Pending Glucose Pending Calcium Pending Magnesium Pending Hepatitis C Ab Screen Neg (Neg)
--- NOTE | 2019-01-11 10:10 | XRay Report ---
XR KUB/Abdomen 1 view CLINICAL HISTORY: 68 years-old Female presenting with follow-up SBO. TECHNIQUE: Single supine view of the abdomen was obtained. COMPARISON: 01/10/2019. FINDINGS: Mild stool burden predominantly in the right and transverse colon. No significant gaseous distention of small bowel on the current exam. No gross pneumoperitoneum. Anastomotic suture line projects over the pelvis. Allowing for bowel gas and stool, no calcifications to suggest nephrolithiasis. Degenerative changes of the spine. Lung bases clear. IMPRESSION: 1. No demonstrable evidence of small bowel obstruction on the current exam. This could suggest a [place] of small bowel gas or resolving obstruction. 2. Stool burden suggests constipation. Electronically signed by: Carlito Camacho M.D. 01/11/2019 10:09 AM
[2019-01-11 10:23] LABS: Calcium 8.8 mg/dl (8.5-10.1); Creatinine Clr Calc Pharmacy 90.7 ml/min; Est GFR (African American) 114.6; Est GFR (Non-African American) 98.9; Magnesium 1.8 mg/dl (1.8-2.4); Potassium 3.8 mmol/L (3.5-5.1)
--- NOTE | 2019-01-11 11:06 | Hospitalist Progress Note ---
Date of Service Date of service 01/10January 11, 2019 Assessment & Plan (1) Partial small bowel obstruction: -Patient presenting from home with reports of abdominal pain that began this morning -In the ED, CT ABD/pelvis showing partial small bowel obstruction at anastomosis point of recent colon resection -Obstruction likely due to adhesions from recent surgery (DULCE MARIA-BSO, omentectomy, low anterior resection, small bowel resection on 10/27/2018 at [facility]) -Continue supportive care with n.p.o., IVF, pain and nausea control -Follow-up KUB in the morning -General surgery consult-appreciate input and recommendation -Has been feeling a little bit better -We will keep her n.p.o. as of now (2) Endometrial adenocarcinoma: -Underwent surgery as outlined above -Completed carbo/Taxol 09/2018 -To follow-up with Dr. Tree Christine soon regarding starting maintenance chemotherapy (3) GERD (gastroesophageal reflux disease): (4) Barretts esophagus: -Continue PPI (5) Anxiety: -Continue citalopram (6) DVT prophylaxis: -SQ heparin Subjective 01/10 The patient was seen and examined in medical floor She complains to have some pain in the abdomen without distention nausea and vomiting Denies any other symptoms Review of Systems Review of Systems: All systems reviewed and are unremarkable except as noted below Gastrointestinal: + abdominal pain, + bloating and + nausea; no vomiting Physical Exam Physical Exam: Lying in bed with minimal discomfort due to abdominal pain Constitutional: well developed; no acute distress and not ill appearing Eyes: PERRL, conjunctivae normal, anicteric sclerae ENMT: external ear and nose normal, oropharynx normal Neck: trachea midline, no thyromegaly Respiratory: normal respiratory effort, lungs clear to auscultation Cardiovascular: Rate/Rhythm: regular rate and regular rhythm Vessels: normal peripheral pulses Extremities: no edema Gastrointestinal (Abdomen): Inspection/Auscultation: abdomen not distended and + abnormal bowel sounds (Hypoactive) Percussion/Palpation: abdomen soft; abdomen nontender and no hepatosplenomegaly Musculoskeletal: no cyanosis or clubbing, extremities motor strength 5/5 Skin: no rashes, warm and dry Neurologic: PERRL, EOMI, accommodation nl, no face palsy, no dysarthria Psychiatric: A+Ox3, euthymic affect Lymphatic: no cervical or axillary lymphadenopathy Results & Data Vital Signs (Past 12 Hours) Vital Signs Temp Pulse Resp BP Pulse Ox 01/11/19 07:00 36.5 C 63 16 148/80 H 99 01/10/19 23:03 36.8 C 60 16 123/71 96
--- NOTE | 2019-01-11 11:08 | Hospitalist Progress Note ---
Date of Service January 11, 2019 Assessment & Plan (1) Partial small bowel obstruction: -Patient presenting from home with reports of abdominal pain that began this morning -In the ED, CT ABD/pelvis showing partial small bowel obstruction at anastomosis point of recent colon resection -Obstruction likely due to adhesions from recent surgery (DULCE MARIA-BSO, omentectomy, low anterior resection, small bowel resection on 10/27/2018 at [facility] [place] -Continue supportive care with n.p.o., IVF, pain and nausea control -Follow-up KUB in the morning -General surgery consult-appreciate input and recommendation -Has been feeling a little bit better -Much better today -Bowel movement -Clears orally advised if tolerated will advance from tomorrow morning -Likely be discharged tomorrow afternoon (2) Endometrial adenocarcinoma: -Underwent surgery as outlined above -Completed carbo/Taxol 09/2018 -To follow-up with Dr. Tree Christine soon regarding starting maintenance chemotherapy (3) GERD (gastroesophageal reflux disease): (4) Barretts esophagus: -Continue PPI (5) Anxiety: -Continue citalopram (6) DVT prophylaxis: -SQ heparin Subjective 01/11 The patient was seen and examined in medical floor She has been feeling a lot better today KUB did not show any significant obstruction She was started clears orally Review of Systems Review of Systems: All systems reviewed and are unremarkable except as noted below Gastrointestinal: no bloating, no nausea and no vomiting Physical Exam Physical Exam: Lying in bed comfortably Constitutional: well developed; no acute distress and not ill appearing Eyes: PERRL, conjunctivae normal, anicteric sclerae ENMT: external ear and nose normal, oropharynx normal Neck: trachea midline, no thyromegaly Respiratory: normal respiratory effort; no respiratory distress Auscultation: lungs clear to auscultation bilaterally Cardiovascular: Rate/Rhythm: regular rate and regular rhythm Vessels: normal peripheral pulses Extremities: no edema Gastrointestinal (Abdomen): Inspection/Auscultation: abdomen not distended Percussion/Palpation: abdomen soft; abdomen nontender and no hepatosplenomegaly Musculoskeletal: no cyanosis or clubbing, extremities motor strength 5/5 No acute arthritis in any joints Skin: no rashes, warm and dry Neurologic: PERRL, EOMI, accommodation nl, no face palsy, no dysarthria Psychiatric: A+Ox3, euthymic affect Lymphatic: no cervical or axillary lymphadenopathy Results & Data Vital Signs (Past 12 Hours) Vital Signs Temp Pulse Resp BP Pulse Ox 01/11/19 07:00 36.5 C 63 16 148/80 H 99 Laboratory Results Short CBC 01/11/19 Range/Units 09:33 WBC 3.97 L (4.8-10.8) K/uL Hgb 9.6 L (12.0-16.0) g/dL Hct 29.3 L (37-47) % Plt Count 140 (130-400) K/uL BMP 01/11/19 09:33 Sodium 146 H Potassium 3.8 Chloride 115 H Carbon Dioxide 27 BUN 2 L Creatinine 0.52 L Glucose 95 Calcium 8.8 Medications Administered Current Inpatient Medications Acetaminophen (Tylenol) 650 mg PO Q4H PRN PRN Reason: pain/fever Stop: 02/08/19 17:08 Last Admin: 01/10/19 19:26 Dose: 650 mg Documented by: Citalopram Hydrobromide (Celexa) 5 mg PO QAM NORBERTO Stop: 02/09/19 08:59 Last Admin: 01/11/19 08:19 Dose: 5 mg Documented by: Gabapentin (Neurontin) 100 mg PO HS NORBERTO Stop: 02/08/19 20:59 Last Admin: 01/10/19 20:25 Dose: 100 mg Documented by: Heparin Sodium (Porcine) (Heparin Sodium (Porcine)) 5,000 units SQ Q8 NORBERTO Stop: 02/08/19 21:59 Last Admin: 01/11/19 05:15 Dose: 5,000 units Documented by: Heparin Sodium (Porcine) (Heparin Sod 100 Unit/Ml Flush) 5 ml FLUSH PRN PRN PRN Reason: Flush Stop: 02/09/19 13:37 Potassium Chloride/Dextrose/Sod Cl (D5nss + 20meq Kcl) 20 meq in 1,000 mls @ 125 mls/hr IV .Q8H NORBERTO Stop: 02/08/19 17:59 Last Admin: 01/11/19 08:20 Dose: 125 mls/hr Documented by: Promethazine HCl 12.5 mg/ (Sodium Chloride) 50.5 mls @ 202 mls/hr IV Q6H PRN PRN Reason: Nausea And Vomiting Stop: 02/08/19 17:08 Last Infusion: 01/10/19 19:26 Dose: Infused Documented by: Morphine Sulfate (Morphine Sulfate) 4 mg IV Q4H PRN PRN Reason: Pain Stop: 01/23/19 17:08 Last Admin: 01/09/19 22:51 Dose: 4 mg Documented by: Pantoprazole Sodium (Protonix) 40 mg PO QAM [facility] Stop: 02/09/19 08:59 Last Admin: 01/11/19 08:19 Dose: 40 mg Documented by:
[2019-01-11] MEDS: POLYETHYLENE (MIRALAX) 17 GM PACK PO SCH (12:10)
[2019-01-11] MEDS: DOCUSATE SODIUM 100 MG CAP PO SCH ×2 (12:10→21:25)
[2019-01-11] MEDS: GABAPENTIN 100 MG CAP PO SCH (21:25)
[2019-01-11] MEDS: ACETAMINOPHEN 325 MG TAB PO PRN (21:42)
[2019-01-11] MEDS ORDERED: MoRPHine SULFATE 4 MG/ML 1 ML CARP\\VIAL IV PRN (21:49)
[2019-01-12] MEDS: HEPARIN SOD 5,000 UNIT/0.5 ML VIAL SQ SCH ×2 (05:13→13:30)
[2019-01-12] MEDS: CITALOPRAM 20 MG TAB PO SCH (08:50)
[2019-01-12] MEDS: PANTOprazole 40 MG TAB PO SCH (08:50)
[2019-01-12] MEDS: POLYETHYLENE (MIRALAX) 17 GM PACK PO SCH (08:52)
[2019-01-12] MEDS: DOCUSATE SODIUM 100 MG CAP PO SCH (08:52)
--- NOTE | 2019-01-12 10:32 | Surgery Progress Note ---
Date of Service January 12, 2019 Assessment & Plan (1) Partial small bowel obstruction: 68 year-old female presented to ER with abdominal pain , nausea and vomiting x 1. History of total abdominal hysterectomy with BSO, omentectomy, low anterior resection and partial small bowel [place] [facility] [place] scan showing partial SBO with transition point at the small bowel anastomosis. Abdomen is soft, nondistended, tenderness in RLQ. + bowel movement this morning. Repeat KUB yesterday (01/11/19) showing nonobstructive bowel pattern. Plan: advance to full liquids and then as tolerated okay from surgical standpoint for discharge if tolerates advanced diet she had moderate fecal burden in right colon on imaging, she should continue bowel regimen with stool softener BID and Miralax as needed. Would avoid high amounts of fiber. Our services signing off, please call with questions or concerns Dr. Oscar has seen patient, agrees with above Subjective feeling better today no abdominal pain, n/v bowel movement a little bit ago, soft formed tolerated clear liquids for breakfast Physical Exam Constitutional: WD/WN, vitals as above Respiratory: no respiratory distress Gastrointestinal (Abdomen): Inspection/Auscultation: abdomen not distended Percussion/Palpation: + abdomen tender (IN RLQ on deep palpation, improved) and abdomen soft; no guarding and abdomen not rigid Skin: no rashes, warm and dry Psychiatric: A+Ox3, euthymic affect Results & Data Vital Signs (Past 12 Hours) Vital Signs Temp Pulse Resp BP BP Pulse Ox 01/12/19 07:21 36.5 C 60 16 152/89 H 94 01/11/19 23:13 36.9 C 63 16 147/76 H 96
--- NOTE | 2019-01-12 11:22 | Hospitalist Progress Note ---
Date of Service January 12, 2019 Assessment & Plan (1) Partial small bowel obstruction: -Patient presenting from home with reports of abdominal pain that began this morning -In the ED, CT ABD/pelvis showing partial small bowel obstruction at anastomosis point of recent colon resection -Obstruction likely due to adhesions from recent surgery (DULCE MARIA-BSO, omentectomy, low anterior resection, [place] [facility] [place] -Continue supportive care with n.p.o., IVF, pain and nausea control -Follow-up KUB in the morning -General surgery consult-appreciate input and recommendation -Much better today and denies any symptoms today -Bowel is moving -Tolerated clears and advance diet as tolerated -Discharge home this afternoon (2) Endometrial adenocarcinoma: -Underwent surgery as outlined above -Completed carbo/Taxol 09/2018 -To follow-up with Dr. Tree Christine soon regarding starting maintenance chemotherapy (3) GERD (gastroesophageal reflux disease): (4) Barretts esophagus: -Continue PPI (5) Anxiety: -Continue citalopram (6) DVT prophylaxis: -SQ heparin Subjective 01/11 The patient was seen and examined in medical floor She has been feeling a lot better today KUB did not show any significant obstruction She was started clears orally 01/12 The patient was seen and examined in the medical floor She is out of bed on a chair without any symptoms She has been tolerating clears and will advance accordingly She has been moving her bowels and ambulating well Discharge this afternoon Review of Systems Review of Systems: All systems reviewed and are unremarkable except as noted below Gastrointestinal: no abdominal pain, no bloating, no nausea and no vomiting Physical Exam Physical Exam: No apparent distress at rest Constitutional: well developed; no acute distress and not ill appearing Eyes: PERRL, conjunctivae normal, anicteric sclerae ENMT: external ear and nose normal, oropharynx normal Neck: trachea midline, no thyromegaly Respiratory: normal respiratory effort, lungs clear to auscultation normal respiratory effort; no respiratory distress Auscultation: lungs clear to auscultation bilaterally Cardiovascular: Rate/Rhythm: regular rate and regular rhythm Vessels: normal peripheral pulses Extremities: no edema Gastrointestinal (Abdomen): Inspection/Auscultation: abdomen not distended Percussion/Palpation: abdomen soft; abdomen nontender and no hepatosplenomegaly Musculoskeletal: no cyanosis or clubbing, extremities motor strength 5/5 No acute arthritis in any of the joints Skin: no rashes, warm and dry Neurologic: PERRL, EOMI, accommodation nl, no face palsy, no dysarthria Psychiatric: A+Ox3, euthymic affect Lymphatic: no cervical or axillary lymphadenopathy Results & Data Vital Signs (Past 12 Hours) Vital Signs Temp Pulse Resp BP Pulse Ox 01/12/19 07:21 36.5 C 60 16 152/89 H 94 Medications Administered Current Inpatient Medications Acetaminophen (Tylenol) 650 mg PO Q4H PRN PRN Reason: pain/fever Stop: 02/08/19 17:08 Last Admin: 01/11/19 21:42 Dose: 650 mg Documented by: Citalopram Hydrobromide (Celexa) 5 mg PO QAM [facility] Stop: 02/09/19 08:59 Last Admin: 01/12/19 08:50 Dose: 5 mg Documented by: Docusate Sodium (Colace) 100 mg PO BID [facility] Stop: 02/10/19 11:29 Last Admin: 01/12/19 08:52 Dose: 100 mg Documented by: Gabapentin (Neurontin) 100 mg PO HS [facility] Stop: 02/08/19 20:59 Last Admin: 01/11/19 21:25 Dose: 100 mg Documented by: Heparin Sodium (Porcine) (Heparin Sodium (Porcine)) 5,000 units SQ Q8 NORBERTO Stop: 02/08/19 21:59 Last Admin: 01/12/19 05:13 Dose: 5,000 units Documented by: Heparin Sodium (Porcine) (Heparin Sod 100 Unit/Ml Flush) 5 ml FLUSH PRN PRN PRN Reason: Flush Stop: 02/09/19 13:37 Last Admin: 01/11/19 17:11 Dose: 5 ml Documented by: Promethazine HCl 12.5 mg/ (Sodium Chloride) 50.5 mls @ 202 mls/hr IV Q6H PRN PRN Reason: Nausea And Vomiting Stop: 02/08/19 17:08 Last Infusion: 01/10/19 19:26 Dose: Infused Documented by: Morphine Sulfate (Morphine Sulfate) 3 mg IV Q4H PRN PRN Reason: Pain Stop: 01/23/19 17:08 Pantoprazole Sodium (Protonix) 40 mg PO QAM [facility] Stop: 02/09/19 08:59 Last Admin: 01/12/19 08:50 Dose: 40 mg Documented by: Polyethylene Glycol (Miralax Powder Packet) 17 gm PO DAILY NORBERTO Stop: 02/10/19 11:44 Last Admin: 01/12/19 08:52 Dose: 17 gm Documented by:
--- NOTE | 2019-01-13 07:30 | Discharge Summary ---
Date of Service January 13, 2019 Admission HPI Per Admitting Provider 68-year-old female who presents to the ED with abdominal pain. Patient underwent DULCE MARIA-BSO, omentectomy, low anterior resection, small bowel resection on 10/27/2018 [place] [facility] [place] due to endometrial cancer involving the rectosigmoid colon. Postoperative course was complicated by pelvic abscess which required to drain placements and patient was treated with antibiotics. Drains have since been removed and patient completed antibiotics. She reports that ever since her initial surgery, she has been having small, frequent bowel movements. She reports most the time they are formed however sometimes are loose. She reports going 7-10 times per day. This morning, patient developed epigastric and lower abdominal pain. She reports she drank some coffee and then had emesis immediately following. She denies hematemesis or coffee-ground emesis. No bright bleeding per rectum or dark tarry stools. She denies abdominal distention. Last bowel movement was last evening. She denies fevers and chills. No chest pain or shortness of breath. She denies lightheadedness, dizziness, diaphoresis, syncopal events. No urinary symptoms. In the ED, CT ABD/pelvis is showing partial small bowel obstruction with transition point at the anastomotic site. Patient was given IVF, IV Zofran, IV morphine, IV lorazepam. Admission Exam Per Admitting Provider Constitutional: WD/WN, vitals as above Eyes: PERRL, conjunctivae normal, anicteric sclerae ENMT: external ear and nose normal, oropharynx normal Respiratory: normal respiratory effort, lungs clear to auscultation Cardiovascular: Rate/Rhythm: regular rate and regular rhythm Vessels: normal peripheral pulses Extremities: no edema Gastrointestinal (Abdomen): Inspection/Auscultation: abdomen not distended and + abnormal bowel sounds (Hypoactive) Percussion/Palpation: abdomen soft; abdomen nontender and no hepatosplenomegaly Musculoskeletal: no cyanosis or clubbing, extremities motor strength 5/5 Skin: no rashes, warm and dry Neurologic: PERRL, EOMI, accommodation nl, no face palsy, no dysarthria Psychiatric: A+Ox3, euthymic affect Principal Diagnosis Partial small bowel obstruction-resolved.Endometrial adenocarcinoma-(DULCE MARIA-BSO, omentectomy, low anterior resection, small bowel resection on 10/27/2018 at [facility] [place] Discharge Exam Constitutional well developed; no acute distress and not ill appearing Eyes PERRL, conjunctivae normal, anicteric sclerae ENMT external ear and nose normal, oropharynx normal Neck trachea midline, no thyromegaly Respiratory normal respiratory effort, lungs clear to auscultation normal respiratory effort; no respiratory distress Auscultation: lungs clear to auscultation bilaterally Cardiovascular Rate/Rhythm: regular rate and regular rhythm Vessels: normal peripheral pulses Extremities: no edema Gastrointestinal (Abdomen) Inspection/Auscultation: abdomen not distended Percussion/Palpation: abdomen soft; abdomen nontender and no hepatosplenomegaly Musculoskeletal no cyanosis or clubbing, extremities motor strength 5/5 Skin no rashes, warm and dry Neurologic PERRL, EOMI, accommodation nl, no face palsy, no dysarthria Psychiatric A+Ox3, euthymic affect Lymphatic no cervical or axillary lymphadenopathy Discharge Data Allergies Allergy/AdvReac Type Severity Reaction Status Date / Time Penicillins Allergy Severe FACIAL Verified 01/09/19 12:54 SWELLING, RASH Sulfa (Sulfonamide Allergy Severe VOMITING Verified 01/09/19 12:54 Antibiotics) Consultations 01/09/19 15:35 ED Decision to Admit Stat 01/09/19 17:09 Consult General Surgery Routine Ordered Studies 01/09/19 12:33 CT abd pelvis IV con only Stat Hospital Course (1) Partial small bowel obstruction: -Patient presenting from home with reports of abdominal pain that began this morning -In the ED, CT ABD/pelvis showing partial small bowel obstruction at anastomosis point of recent colon resection -Obstruction likely due to adhesions from recent surgery (DULCE MARIA-BSO, omentectomy, low anterior resection, small bowel resection on 10/27/2018 at [facility] [place]) -Continue supportive care with n.p.o., IVF, pain and nausea control -Follow-up KUB in the morning -General surgery consult-appreciate input and recommendation -Much better today and denies any symptoms today -Bowel is moving -Tolerated clears and advance diet as tolerated -Discharge home this afternoon (2) Endometrial adenocarcinoma: -Underwent surgery as outlined above -Completed carbo/Taxol 09/2018 -To follow-up with Dr. Tree loza regarding starting maintenance chemotherapy (3) GERD (gastroesophageal reflux disease): (4) Barretts esophagus: -Continue PPI (5) Anxiety: -Continue citalopram (6) DVT prophylaxis: -SQ heparin Total Time Total Time Spent Total Time Spent (In Minutes): 35 minutes Total Time Includes: Examination of the Patient, Discharge Planning, Medication Reconciliation and Communication With Other Providers Discharge Plan Discharge Items Patient Disposition: Home - Self-Care Reason For Visit: SBO Discharge Diagnosis: Partial small bowel obstruction-resolved.Endometrial adenocarcinoma-(DULCE MARIA-BSO, omentectomy, low anterior resection, small bowel resect ion on 10/27/2018 at [facility] [place] Condition: Good Discharge Goals: Decrease discomfort, Improve function and Increase independence Activity: Resume your previous activity Non-emergency contact: Primary Care Provider Call non-emergency contact if: you have any medication questions and your symptoms worsen Follow-up/Referrals: Whitney Black MD [Primary Care Provider] - 01/18/19 12:45 pm (Please keep appointment with oncologist for ongoing therapy) Diet: Regular Addtl Provider Instructions: Try to avoid any fresh foods and/or vegetables, salads take Plenty of fluid and stool softener if needed No change in your medications Prescriptions: New polyethylene glycol 3350 [Miralax] 17 gram Powder In Packet 17 g PO DAILY 30 Days Qty: 30 RF: 0 docusate sodium 100 mg Capsule 100 mg PO BID 30 Days Qty: 60 RF: 0 Continued citalopram 10 mg Tablet 5 mg PO QAM RF: 0 omeprazole 20 mg Capsule,Delayed Release(Dr/Ec) 20 mg PO QAM RF: 0 [id number] C-Mn [Glucosamine Chondroitin MaxStr] 500-400 mg Capsule 1 cap PO QAM RF: 0 gabapentin [Neurontin] 100 mg capsule 100 mg PO HS RF: 0 ondansetron HCl [Zofran] 8 mg Tablet 8 mg PO TID PRN (Reason: Nausea) RF: 0 ibuprofen [Advil] 200 mg Tablet 800 mg PO HS RF: 0 montelukast [Singulair] 10 mg Tablet 10 mg PO DAILY PRN (Reason: Allergy Symptoms) RF: 0 fluticasone propionate [Flonase Allergy Relief] 50 mcg/actuation [place],Suspension 2 spray INTRANASAL DAILY PRN (Reason: Nasal Congestion) RF: 0 Stand-Alone Forms: Call Back Authorization, [facility]/Other Patient Handouts: Docusate Sodium Sennosides Oral tablet Discharge Orders: Discharge Order (Routine); Ordered 01/12/19 Ordered By: Param Muir Admission Data Admit Date/Time: 01/09/19 16:11 Attending Provider: Param Muir Admit Provider: Param Muir Primary Care Provider: Whitney Black Other Providers: Param Muir ; Chilo Tse Service: Medical Other Interventions: Discharge Summary Assessment (RN) Last Done: 01/12/19 13:16 DC Date/Time DO NOT enter until pt leaves facility: 01/12/19 15:07
== END 2019-01-12 15:07 | disposition home or self-care (01) | DRG 390 ==
LOC: ED 12:05 → 3E 16:11
DX: K21.9 Gastro-esophageal reflux disease without esophagitis; Z88.0 Allergy status to penicillin; K22.70 Barrett's esophagus without dysplasia; Z85.42 Personal history of malignant neoplasm of other parts of uterus; K56.51 Intestinal adhesions [bands], with partial obstruction; Z80.0 Family history of malignant neoplasm of digestive organs; Z90.722 Acquired absence of ovaries, bilateral; Z90.710 Acquired absence of both cervix and uterus; F41.9 Anxiety disorder, unspecified; Z88.2 Allergy status to sulfonamides; K76.0 Fatty (change of) liver, not elsewhere classified

== ENCOUNTER 2020-09-05 02:07 | Inpatient (IN) ==
[2020-09-05] MEDS ORDERED: SODIUM CHLORIDE 0.9% 1000ML 1,000 ML IV ONE (02:35)
[2020-09-05] MEDS ORDERED: HYDROmorphone INJ 1 MG/ML SYRINGE IV STA (02:35)
[2020-09-05] MEDS ORDERED: ONDANSETRON INJ 2 MG/ML 2 ML VIAL IV STA (02:35)
--- NOTE | 2020-09-05 02:36 | Emergency Department Note ---
Impression & Plan Small bowel obstruction ED Provider Note Name: YELENA WEBSTER Age: 70 Sex: F Arrives Via: Family Vehicle Informant: Patient, Daughter ED Provider: Elijah Mills MD Chief Complaint: Abdominal pain Impression: Small Bowel Obstruction Medical Decision Makin yr old female with history of uterine cancer s/p hysterectomy and small bowel resection 2 years ago with single episode of SBO 1.5 years ago. Arrives with worsening epigastric pain, vomiting and discomfort. Labs OK. Pain controled with IV Narcotics. CT with SBO transition in pelvis. NG tube as moderate stomach contents and still nausea/distended. She is comfortable with plan and hospitalist consulted for further management Prior Medical Record and Triage/Nursing Notes reviewed by Me Additional history obtained from chart Differentials:Gastroenteritis, food borne illness, infections, appendicitis, diverticulitis, inflammatory bowel disease, obstruction, GI bleed, biliary pathology, volvulus, as well as other pathologies. Vital Signs: reviewed and remarkable for no significant abnormalities Interventions: saline lock, fentanyl iv, dilaudid iv, zofran iv Labs:Reviewed and remarkable for no significant abnormalities Imaging:[facility] Radiologist interpretation reviewed by me: "CT ABDOMEN & PELVIS With Contrast: Comparison: CT abdomen and pelvis 01/09/19 Findings consistent with small bowel obstruction with transition point at small bowel anastomosis in the pelvis. Associated mesenteric edema and small amount of mesenteric fluid. No free air. Wide-based large supraumbilical hernia containing bowel loops, but no obstruction secondary to hernia. Post-hysterectomy and partial sigmoidectomy. Atherosclerotic calcifications. Degenerative changes of spine. Radiologist: Elijah Brice MD" Consults:Dr Rashard Osuna Hospitalist Plan: Disposition:Hospitalization. Condition: Good History of Present Illness:70 yr old female arrives for evaluation of abdominal pain. Patient notes feeling well yesterday and then when going to bed this evening developing upper abdominal pain. Used Tums without improvement. Over last few hours worsening pain. Associated nausea and vomiting. Pain is upper bilateral abdomen without radiation. No fevers, chills, blood in vomiting/stool, syncope, cp, sob, headache, neck pain, rashes, urinary symptoms, bowel changes, leg swelling, calf pain, back pain nor other symptoms. Worse wi th movement, better with rest. History of SBO last year management by watch/wait and resolved after a few days without surgery. She had Hysterectomy with partial bowel resection in 2019 for Uterine CA at [facility]. She has had no falls, trauma, no injuries. Is not on any blood thinners. No recent chemotherapy. ROS: See above HPI for pertinent positives & negatives. A total of 10 systems reviewed and were otherwise negative. Past Medical History:SBO, Uterine CA, Anxiety/Depression, GERD Past Surgical History:Hysterectomy/Bowel Resection, amongst others see below Family History:Sister colon ca, parents CAD Social History:Former smoker, lives with family Home Medications:Citalopram, flonase, glucosamine, motrin, omeprazole Allergies:PNC, Bactrim Vitals:Blood Pressure: 187/85, Pulse 88, RR 14, T 36.4C, O2 97% on RA Physical Exam: GENERAL: Patient is uncomfortable appearing and in moderate distress. EYES: No scleral icterus, unremarkable pupils. ENT: Mucous membranes moist, no nasal congestion. NECK: No masses appreciated, nomeningismus, trachea is midline. RESPIRATORY: No dyspnea. Clear to auscultation and equal bilaterally. No wheeze, no rhonchi. CARDIOVASCULAR: Regular rate and rhythm.No murmurs, rubs, gallops appreciated. GASTROINTESTINAL: epigastric TTP, hyperactive bowel sounds, no masses, no peritonitis, anterior hernia nontender BACK: No midline tenderness, no CVA tenderness EXTREMITIES: Normal motion all extremities, no cyanosis, no edema. NEUROLOGIC: Alert and oriented, no acute motor or sensory deficits, no focal weakness, cranial nerves grossly intact. SKIN: No rash, no jaundice, no diaphoresis. PSYCH: Appropriate GCS: 15 ED Course: Times/Reassessments: stable and improving with pain meds. no peritonitis on exam. Elijah Mills MD Past Med/Surg History Medical History (Updated 09/05/20 @ 06:46 by Elijah Mills MD) Anxiety Barretts esophagus Diverticular disease Endometrial adenocarcinoma Fatty liver disease, nonalcoholic GERD (gastroesophageal reflux disease) Hiatal hernia Osteoarthritis Surgical History (Updated 01/09/19 @ 17:26 by Melida Vargas RN) History of adenoidectomy History of bilateral tubal ligation History of cataract surgery BILATERAL History of tonsillectomy S/P small bowel resection DULCE MARIA-BSO, omenectomy, small bowel resection for endometrial adenocarcinoma involving rectosigmoid colon S/P DULCE MARIA-BSO Status post chemotherapy PT REPORTS FIRST CHEMO TX 05/14/18 Family History Sister Family hx of colon cancer Father Heart disease Mother Heart disease Social History Smoking Status: Former smoker Second Hand Exposure: No; Hx Alcohol Use: No Hx Substance Use: No Preferred Language: Czech Communication Ability: Effective Mixer And Scaler Required: No Beliefs That Will Affect Care: None Current Living Situation: Family Feels Safe at Home: Yes Assistive Devices: Walker Allergies Allergies Allergy/AdvReac Type Severity Reaction Status Date / Time Penicillins Allergy Severe FACIAL Verified 09/05/20 02:44 SWELLING, RASH Sulfa (Sulfonamide Allergy Severe VOMITING Verified 09/05/20 02:44 Antibiotics) Home Meds Home Medications Medication Instructions Recorded Confirmed [id number] C-Mn 1 cap PO QAM 03/25/18 09/05/20 [Glucosamine Chondroitin MaxStr] omeprazole 20 mg PO QAM 03/25/18 09/05/20 fluticasone propionate [Flonase 2 spray INTRANASAL DAILY PRN 01/09/19 09/05/20 Allergy Relief] ibuprofen [Advil] 800 mg PO HS 01/09/19 09/05/20 citalopram 10 mg PO DAILY 09/05/20 09/05/20 Results & Data (ED) Vital Signs Vital Signs - 24 hr 09/05/20 02:13 09/05/20 03:00 09/05/20 03:35 Temperature 36.4 C L Temperature Source Temporal Artery Scan Pulse Rate 88 77 96 H Pulse Rate from SpO2 Sensor 75 Respiratory Rate 14 18 23 Respiratory Effort / Characteristics Non-Labored Spontaneous Respiratory Depth Normal Blood Pressure 187/85 H 148/95 H 182/90 H Blood Pressure Mean 119 112 120 Pulse Oximetry 97 95 96 Oxygen Delivery Method Room Air Room Air Room Air Sepsis Recent Fever Within 48 Hours No Sepsis New/Unexplained Change in Mental Status No Sepsis Action Taken by Nursing No Action Required 09/05/20 04:00 09/05/20 04:03 09/05/20 04:30 Temperature Temperature Source Pulse Rate 82 75 79 Pulse Rate from SpO2 Sensor 83 74 Respiratory Rate 21 19 17 Respiratory Effort / Characteristics Respiratory Depth Blood Pressure 153/101 H 145/103 H 170/99 H Blood Pressure Mean 118 117 122 Pulse Oximetry 96 95 Oxygen Delivery Method Room Air Room Air Room Air Sepsis Recent Fever Within 48 Hours Sepsis New/Unexplained Change in Mental Status Sepsis Action Taken by Nursing 09/05/20 05:05 09/05/20 05:30 09/05/20 06:00 Temperature Temperature Source Pulse Rate 87 83 78 Pulse Rate from SpO2 Sensor 87 84 77 Respiratory Rate 20 18 15 Respiratory Effort / Characteristics Respiratory Depth Blood Pressure 174/95 H 158/84 H 141/78 H Blood Pressure Mean 121 108 99 Pulse Oximetry 95 93 92 Oxygen Delivery Method Room Air Room Air Room Air Sepsis Recent Fever Within 48 Hours Sepsis New/Unexplained Change in Mental Status Sepsis Action Taken by Nursing 09/05/20 06:30 Temperature Temperature Source Pulse Rate 72 Pulse Rate from SpO2 Sensor 71 Respiratory Rate 15 Respiratory Effort / Characteristics Respiratory Depth Blood Pressure 112/76 Blood Pressure Mean 88 Pulse Oximetry 92 Oxygen Delivery Method Room Air Sepsis Recent Fever Within 48 Hours Sepsis New/Unexplained Change in Mental Status Sepsis Action Taken by Nursing Laboratory Data Result diagrams: 09/05/20 02:26 09/05/20 02:26 Lab Results 09/05/20 09/05/20 09/05/20 Range/Units 02:26 02:26 02:26 WBC 9.66 (4.8-10.8) K/uL RBC 4.34 (4.2-5.4) M/uL Hgb 12.8 (12.0-16.0) g/dL Hct 37.7 (37-47) % MCV 86.9 (80-100) fL MCH 29.5 (25-34) pg MCHC 34.0 (32-36) g/dL RDW Std Deviation 43.9 (36.4-46.3) fL RDW Coeff of Dianne 13.7 (11.5-14.5) % Plt Count 259 (130-400) K/uL MPV 9.9 (7.4-10.4) fL Immature Gran % (Auto) 0.2 % Neut % (Auto) 77.1 % Lymph % (Auto) 15.3 % [place] % (Auto) 6.0 % Eos % (Auto) 1.1 % Baso % (Auto) 0.3 % Neut # (Auto) 7.44 H (1.4-6.5) K/uL Lymph # (Auto) 1.48 (1.2-3.4) K/uL [place] # (Auto) 0.58 (0.11-0.59) K/uL Eos # (Auto) 0.11 (0-0.5) K/uL Baso # (Auto) 0.03 (0-0.2) K/uL Immature Gran # (Auto) 0.02 (0.00-0.02) K/uL PT 10.0 (9.0-12.0) Seconds INR 1.0 (0.9-1.1) Sodium (136-145) mmol/L Potassium (3.5-5.1) mmol/L Chloride (98-107) mmol/L Carbon Dioxide (21-32) mmol/L Anion Gap (3-11) BUN (7-18) mg/dl Creatinine (0.6-1.2) mg/dl Est Cr Clr Drug Dosing ml/min Est GFR ( Amer) Est GFR (Non-Af Amer) BUN/Creatinine Ratio (10-20) Glucose (70-99) mg/dl Lactate 1.4 (0.4-2.0) mmol/L Calcium (8.5-10.1) mg/dl Magnesium (1.8-2.4) mg/dl Total Bilirubin (0.2-1) mg/dl Direct Bilirubin (0-0.2) mg/dl AST (15-37) U/L ALT (12-78) U/L Alkaline Phosphatase (45-117) U/L Total Protein (6.4-8.2) gm/dl Albumin (3.4-5.0) gm/dl Lipase (73-393) U/L COVID-19 Eval Order SARS-CoV-2 (PCR) (Negative) Influenza Type A (PCR) (Neg) Influenza Type B (PCR) (Neg) RSV (RT-PCR) (Neg) SARS-CoV-2, RNA, NAAT 09/05/20 09/05/20 09/05/20 Range/Units 02:26 04:52 04:52 WBC (4.8-10.8) K/uL RBC (4.2-5.4) M/uL Hgb (12.0-16.0) g/dL Hct (37-47) % MCV (80-100) fL MCH (25-34) pg MCHC (32-36) g/dL RDW Std Deviation (36.4-46.3) fL RDW Coeff of Dianne (11.5-14.5) % Plt Count (130-400) K/uL MPV (7.4-10.4) fL Immature Gran % (Auto) % Neut % (Auto) % Lymph % (Auto) % [place] % (Auto) % Eos % (Auto) % Baso % (Auto) % Neut # (Auto) (1.4-6.5) K/uL Lymph # (Auto) (1.2-3.4) K/uL [place] # (Auto) (0.11-0.59) K/uL Eos # (Auto) (0-0.5) K/uL Baso # (Auto) (0-0.2) K/uL Immature Gran # (Auto) (0.00-0.02) K/uL PT (9.0-12.0) Seconds INR (0.9-1.1) Sodium 142 (136-145) mmol/L Potassium 3.7 (3.5-5.1) mmol/L Chloride 110 H (98-107) mmol/L Carbon Dioxide 27 (21-32) mmol/L Anion Gap 5.0 (3-11) BUN 13 (7-18) mg/dl Creatinine 0.79 (0.6-1.2) mg/dl Est Cr Clr Drug Dosing 69.8 ml/min Est GFR ( Amer) 88.5 Est GFR (Non-Af Amer) 76.4 BUN/Creatinine Ratio 15.7 (10-20) Glucose 133 H (70-99) mg/dl Lactate (0.4-2.0) mmol/L Calcium 9.1 (8.5-10.1) mg/dl Magnesium 2.1 (1.8-2.4) mg/dl Total Bilirubin 0.3 (0.2-1) mg/dl Direct Bilirubin < 0.1 (0-0.2) mg/dl AST 12 L (15-37) U/L ALT 23 (12-78) U/L Alkaline Phosphatase 76 (45-117) U/L Total Protein 7.8 (6.4-8.2) gm/dl Albumin 4.0 (3.4-5.0) gm/dl Lipase 112 (73-393) U/L COVID-[address]Rsv at [facility] SARS-CoV-2 (PCR) (Negative) Influenza Type A (PCR) (Neg) Influenza Type B (PCR) (Neg) RSV (RT-PCR) (Neg) SARS-CoV-2, RNA, NAAT Cancelled 09/05/20 Range/Units 04:52 WBC (4.8-10.8) K/uL RBC (4.2-5.4) M/uL Hgb (12.0-16.0) g/dL Hct (37-47) % MCV (80-100) fL MCH (25-34) pg MCHC (32-36) g/dL RDW Std Deviation (36.4-46.3) fL RDW Coeff of Dianne (11.5-14.5) % Plt Count (130-400) K/uL MPV (7.4-10.4) fL Immature Gran % (Auto) % Neut % (Auto) % Lymph % (Auto) % [place] % (Auto) % Eos % (Auto) % Baso % (Auto) % Neut # (Auto) (1.4-6.5) K/uL Lymph # (Auto) (1.2-3.4) K/uL [place] # (Auto) (0.11-0.59) K/uL Eos # (Auto) (0-0.5) K/uL Baso # (Auto) (0-0.2) K/uL Immature Gran # (Auto) (0.00-0.02) K/uL PT (9.0-12.0) Seconds INR (0.9-1.1) Sodium (136-145) mmol/L Potassium (3.5-5.1) mmol/L Chloride (98-107) mmol/L Carbon Dioxide (21-32) mmol/L Anion Gap (3-11) BUN (7-18) mg/dl Creatinine (0.6-1.2) mg/dl Est Cr Clr Drug Dosing ml/min Est GFR ( Amer) Est GFR (Non-Af Amer) BUN/Creatinine Ratio (10-20) Glucose (70-99) mg/dl Lactate (0.4-2.0) mmol/L Calcium (8.5-10.1) mg/dl Magnesium (1.8-2.4) mg/dl Total Bilirubin (0.2-1) mg/dl Direct Bilirubin (0-0.2) mg/dl AST (15-37) U/L ALT (12-78) U/L Alkaline Phosphatase (45-117) U/L Total Protein (6.4-8.2) gm/dl Albumin (3.4-5.0) gm/dl Lipase (73-393) U/L COVID-19 Eval Order SARS-CoV-2 (PCR) NEGATIVE (Negative) Influenza Type A (PCR) Negative (Neg) Influenza Type B (PCR) Negative (Neg) RSV (RT-PCR) Negative (Neg) SARS-CoV-2, RNA, NAAT Administered Medications Discontinued Medications Hydromorphone HCl (Hydromorphone Inj 1 Mg/Ml Syringe) 1 mg IV NOW STA Stop: 09/05/20 02:36 Last Admin: 09/05/20 02:41 Dose: 1 mg Documented by: [id number] Hydromorphone HCl (Hydromorphone Inj 0.5 Mg/0.5 Ml Syr) 0.5 mg IV NOW STA Stop: 09/05/20 05:39 Last Admin: 09/05/20 05:40 Dose: 0.5 mg Documented by: [id number] Sodium Chloride (Nss 1000ml) 1,000 mls @ 999 mls/hr IV .Q1H1M ONE Stop: 09/05/20 03:35 Last Infusion: 09/05/20 03:43 Dose: 0 mls/hr Documented by: [id number] Admin: 09/05/20 02:42 Dose: 999 mls/hr Documented by: [id number] Lorazepam (Ativan) 0.25 mg in 0.5 mls @ 0.5 mls/min IV NOW STA Stop: 09/05/20 04:56 Last Admin: 09/05/20 05:05 Dose: 0.5 mls/min Documented by: [id number] Ioversol (Optiray 320 100ml) 100 ml IV ONCE ONE Stop: 09/05/20 03:35 Last Admin: 09/05/20 03:35 Dose: 77 ml Documented by: [id number] Ondansetron HCl (Ondansetron Inj 2 Mg/Ml 2 Ml Vial) 4 mg IV NOW STA Stop: 09/05/20 02:36 Last Admin: 09/05/20 02:40 Dose: 4 mg Documented by: [id number] Ondansetron HCl (Ondansetron Inj 2 Mg/Ml 2 Ml Vial) Confirm Administered Dose 4 mg .ROUTE .STK-MED ONE Stop: 09/05/20 05:38 Last Admin: 09/05/20 05:40 Dose: 4 mg Documented by: [id number] Discharge Plan Visit Data Chief Complaint: Abdominal Pain Stated Complaint: ABD PAIN, VOMITING ED Provider: Elijah Mills Discharge Problem: Small bowel obstruction Patient Disposition: Admitted As Inpatient Discharge Instructions Interventions: ED Discharge Assessment Last Done: 09/05/20 06:41 Forms Stand Alone Forms: [employer] Prescriptions Prescriptions: No Action omeprazole 20 mg Capsule,Delayed Release(Dr/Ec) 20 mg PO QAM RF: 0 [id number]-[id number]-[id number] C-Mn [Glucosamine Chondroitin MaxStr] 500-400 mg Capsule 1 cap PO QAM RF: 0 ibuprofen [Advil] 200 mg Tablet 800 mg PO HS RF: 0 fluticasone propionate [Flonase Allergy Relief] 50 mcg/actuation [place],Suspension 2 spray INTRANASAL DAILY PRN (Reason: Nasal Congestion) RF: 0 citalopram 20 mg tablet 10 mg PO DAILY RF: 0 Referrals Referrals: Joshua You DO [Primary Care Provider] -
[2020-09-05 02:44] LABS: Basophils # (auto) 0.03 K/uL (0-0.2); Basophils % (auto) 0.3 %; Eosinophils # (auto) 0.11 K/uL (0-0.5); Eosinophils % (auto) 1.1 %; Hematocrit (blood only) 37.7 % (37-47); Hemoglobin 12.8 g/dL (12.0-16.0); Immature Granulocytes # (auto) 0.02 K/uL (0.00-0.02); Immature Granulocytes % (auto) 0.2 %; Lymphocytes # (auto) 1.48 K/uL (1.2-3.4); Lymphocytes % (auto) 15.3 %; Mean Corpuscular Hemoglobin 29.5 pg (25-34); Mean Corpuscular Volume 86.9 fL (80-100); Mean Platelet Volume 9.9 fL (7.4-10.4); Monocytes # (auto) 0.58 K/uL (0.11-0.59); Neutrophils # (auto) 7.44 K/uL (1.4-6.5); Neutrophils % (auto) 77.1 %; Platelet Count 259 K/uL (130-400); RDW Coefficient of Variation 13.7 % (11.5-14.5); RDW Standard Deviation 43.9 fL (36.4-46.3); Red Blood Count 4.34 M/uL (4.2-5.4); White Blood Count 9.66 K/uL (4.8-10.8)
[2020-09-05 03:01] LABS: Alanine Aminotransferase 23 U/L (12-78); Aspartate Aminotransferase 12 U/L (15-37); BUN Creatinine Ratio 15.7 (10-20); Bilirubin Direct < 0.1 mg/dl (0-0.2); Blood Urea Nitrogen 13 mg/dl (7-18); Calcium 9.1 mg/dl (8.5-10.1); Carbon Dioxide 27 mmol/L (21-32); Chloride 110 mmol/L (98-107); Creatinine Clr Calc Pharmacy 69.8 ml/min; Est GFR (African American) 88.5; Est GFR (Non-African American) 76.4; Glucose 133 mg/dl (70-99); Lipase 112 U/L (73-393); Magnesium 2.1 mg/dl (1.8-2.4); Potassium 3.7 mmol/L (3.5-5.1); Sodium 142 mmol/L (136-145)
[2020-09-05 03:04] LABS: Alkaline Phosphatase 76 U/L (45-117); Bilirubin,Total 0.3 mg/dl (0.2-1); Total Protein 7.8 gm/dl (6.4-8.2)
[2020-09-05] MEDS ORDERED: OPTIRAY 320 100ml IV ONE (03:34)
[2020-09-05] MEDS ORDERED: LORazepam 0.25 MG/0.5 ML VIAL IV STA (04:55)
[2020-09-05] MEDS ORDERED: ONDANSETRON INJ 2 MG/ML 2 ML VIAL ONE (05:37)
[2020-09-05] MEDS ORDERED: HYDROmorphone INJ 0.5 MG/0.5 ML SYR IV STA (05:38)
[2020-09-05 05:57] LABS: Influenza A virus by PCR Negative (Neg); Influenza B virus by PCR Negative (Neg); RSV by PCR Negative (Neg); SARS CoV2 RNA(COVID-19) InHosp NEGATIVE (Negative)
--- NOTE | 2020-09-05 06:25 | History and Physical Report ---
DATE OF ADMISSION: 09/05/2020 CHIEF COMPLAINT: Abdominal pain. HISTORY OF PRESENT ILLNESS: This is a 70-year-old female with past medical history significant for endometrial adenocarcinoma, poorly differentiated, uterine mass measuring 11 cm, diagnosed in April of 2018 with involvement of right vaginal introitus, vulvar region and liver metastasis and multiple lymph nodes, status post 6 cycles of chemotherapy and underwent surgical intervention in October 2018 with no residual adenocarcinoma noted. The patient also has history of gastroesophageal reflux disease and depression. The patient was admitted to the hospital in December 2018 with small-bowel obstruction post surgery for endometrial cancer and improved with conservative management. Again comes with abdominal pain, nausea, vomiting, pain 7/10 in severity. Had loose stools early in the morning. No blood in the stools. Currently is status post NG tube. Feeling anxious. No shortness of breath, no cough, no fever, no chills. Normal bladder movements. No headache, no blurred vision, no earache, no runny nose, no sore throat. Before this episode, appetite was okay. ALLERGIES: SULFA ANTIBIOTICS, PENICILLIN. PAST MEDICAL HISTORY: As mentioned above. PAST SURGICAL HISTORY: Biopsy of the uterus, colonoscopy, dilatation and curettage, EGD with biopsy, exploratory laparotomy, ligation of oviducts, cataracts, total abdominal hysterectomy with removal of tubes. MEDICATIONS: The patient is on citalopram 20 mg p.o. daily, Flonase 2 sprays intranasal daily p.r.n., glucosamine chondroitin 1 capsule p.o. a.m., Advil 800 mg p.o. at bedtime, omeprazole 20 mg p.o. a.m. FAMILY HISTORY: Significant for father has [place], hypertension; mother had stroke, [place]; maternal aunt has breast cancer; sister had rectal cancer. SOCIAL HISTORY: , lives with . Former smoker, quit in 1974. No alcohol use, no drug use. REVIEW OF SYSTEMS: As per HPI. Rest of the review of systems negative. PHYSICAL EXAMINATION: GENERAL: The patient is of moderate build, not in acute distress. VITAL SIGNS: Temperature 36.4, pulse 100, respiratory rate 17, blood pressure 170/99, oxygen 95% on room air. HEENT: Pupils equal, round, and reactive to light. Oral mucosa moist. NECK: No JVD, no neck masses. CARDIOVASCULAR: S1, S2 heard. Regular rate and rhythm, no murmur, no gallop. RESPIRATORY SYSTEM: Normal AP diameter. No accessory muscle use. No wheezing, no crackles. ABDOMEN: Soft, bowel sounds sluggish, distended, mild abdominal discomfort. No guarding. CENTRAL NERVOUS SYSTEM: Cranial nerves II-XII grossly intact, nonfocal. EXTREMITIES: No edema, no erythema. LABORATORY DATA: WBC 9.6, hemoglobin 12.8, hematocrit 37.7, platelets 259. PT 10, INR 1. Sodium 142, potassium 3.7, chloride 110, bicarbonate 27, BUN 13, creatinine 0.7, serum glucose 133. Lactate 1.4, calcium 9.1, magnesium 2.1, total bilirubin 0.3, direct bilirubin less than 0.1, AST 12, ALT 23, alkaline phosphatase 76, lipase 112. IMAGING DATA: CT abdomen and pelvis, preliminary report consistent with small-bowel obstruction with a transition point and small bowel anastomosis in the pelvis, associated mesenteric edema and small amount of mesenteric fluid. Wide-based large supraumbilical hernia containing bowel loops, but no obstruction secondary to hernia, cholecystectomy, and partial sigmoidectomy. Degenerative disease of the spine. ASSESSMENT AND PLAN: A 70-year-old female who presents with abdominal pain and found to have small-bowel obstruction. 1. Small-bowel obstruction: The patient has bowel obstruction after surgery for endometrial cancer, Again presents with abdominal pain and found to have SBO. Status post NG tube in the ER, which she will continue. Continue with n.p.o., IV fluids, IV pain medicine, and IV antiemetics p.r.n. Consult surgery in the a.m. Monitor in the medical floor. 2. History of endometrial adenocarcinoma: Status post chemo and status post surgery. Follow up with hematology/oncology. 3. Gastroesophageal reflux disease, Guajardo's esophagus: Will continue PPI. 4. Anxiety and depression: Currently holding citalopram until able to take p.o. The patient requested some medicine for anxiety. We will give a dose of IV Ativan 0.25 mg. 5. Deep venous thrombosis prophylaxis: Sequential compression devices for now. Will be given subQ heparin. 6. Disposition: Closely monitor in the medical floor. Expect to discharge home and follow with family doctor. Addendum: Later complained of episode of chest pain ekg ok. will follow troponin MTDD
--- NOTE | 2020-09-05 06:56 | CT Scan Report ---
CT OF THE ABDOMEN AND PELVIS WITH CONTRAST CLINICAL HISTORY: Abdominal pain. History of small bowel obstruction. History of malignancy. COMPARISON STUDY: CT of the abdomen and pelvis January 09, 2019. KUB January 11, 2019. TECHNIQUE: Following IV administration of 77 mL of Optiray, axial images of the abdomen and pelvis we re obtained from the lung bases to the proximal femurs. Images were reviewed in the axial, sagittal, and coronal planes. IV contrast was administered without complication. Automated exposure control wa s utilized for the study. A dose lowering technique was utilized adhering to the principles of ALARA . CT DOSE: 577.04 mGy.cm FINDINGS: No pneumatosis, free air or portal venous gas is present. Hepatic steatosis is noted. The s pleen, adrenal glands, kidneys and pancreas are normal. There is no biliary or pancreatic ductal dila tation dictation. Stomach is mildly distended fluid-filled. Small bowel loops are mildly dilated and fluid-filled. Small bowel feces sign is noted with a small bowel loop within the pelvis at a small humberto wel anastomosis. This is shown on axial image 268 of 461. The distal small bowel is decompressed. The re is a small amount of associated mesenteric infiltration and mesenteric ascites. Sigmoid resection is noted. A large ventral hernia which contains multiple bowel loops is noted. This does not result i n the bowel obstruction. No lymphadenopathy is present. No suspicious osseous lesions are present. No hydronephrosis. Uterus is surgically absent. IMPRESSION: 1. Findings consistent with a small bowel obstruction with transition point within the pelvis, as gerardo cribed above. Transition point at or immediately adjacent to a small bowel anastomosis. Small amount of associated mesenteric infiltration and ascites. 2. Large ventral hernia which contains multiple bowel loops. This hernia does not result in a bowel o bstruction. ACT 112: Negative or not required by law. Electronically signed by: Florentino Estevez M.D. 09/05/2020 6:54 AM
[2020-09-05] MEDS ORDERED: HYDROmorphone INJ 0.5 MG/0.5 ML SYR IV PRN (08:17)
[2020-09-05] MEDS ORDERED: FLUTICASONE PROPIONATE NA SPR 16 GM BTL PRN (08:17)
[2020-09-05] MEDS: D5W AND NSS 1,000 ML IV SCH ×2 (08:56→17:18)
--- NOTE | 2020-09-05 09:48 | Surgery Consultation ---
Date of Consultation September 05, 2020 Assessment & Plan (1) Small bowel obstruction: pt is a 70 year-old female who was admitted to hospital for SBO, IMP: SBO, Plan, base on S/P hysterectomy and Small bowel resection, I recommend to do conservative treatment first, NPO, IV fluid, NG tube, control pain, repeat KUB in morning, pt may need surgery intervention if the conservative treatment failure, pt understood, she agrees with the plan, I answered all questions, Present on Admission?: Yes History of Present Illness Attending Physician: Rl Boateng MD CHIEF COMPLAINT: Abdominal pain. HISTORY OF PRESENT ILLNESS: This is a 70-year-old female with past medical history significant for endometrial adenocarcinoma, poorly differentiated, uterine mass measuring 11 cm, diagnosed in April of 2018 with involvement of right vaginal introitus, vulvar region and liver metastasis and multiple lymph nodes, status post 6 cycles of chemotherapy and underwent surgical intervention in October 2018 with no residual adenocarcinoma noted. The patient also has history of gastroesophageal reflux disease and depression. The patient was admitted to the hospital in December 2018 with small-bowel obstruction post surgery for endometrial cancer and improved with conservative management. Again comes with abdominal pain, nausea, vomiting, pain 7/10 in severity. Had loose stools early in the morning. No blood in the stools. Currently is status post NG tube. Feeling anxious. No shortness of breath, no cough, no fever, no chills. Normal bladder movements. No headache, no blurred vision, no earache, no runny nose, no sore throat. Before this episode, appetite was okay. I ( Aniyah Oscar MD ) got a call for consult SBO, I reviewed pt's H/P, labs, CT scan with pt, pt feels better, no abdominal pain now, ALLERGIES: SULFA ANTIBIOTICS, PENICILLIN. PAST MEDICAL HISTORY: As mentioned above. PAST SURGICAL HISTORY: Biopsy of the uterus, colonoscopy, dilatation and curettage, EGD with biopsy, exploratory laparotomy, ligation of oviducts, cataracts, total abdominal hysterectomy with removal of tubes. MEDICATIONS: The patient is on citalopram 20 mg p.o. daily, Flonase 2 sprays intranasal daily p.r.n., glucosamine chondroitin 1 capsule p.o. a.m., Advil 800 mg p.o. at bedtime, omeprazole 20 mg p.o. a.m. FAMILY HISTORY: Significant for father has [place], hypertension; mother had stroke, [place]; maternal aunt has breast cancer; sister had rectal cancer. SOCIAL HISTORY: , lives with . Former smoker, quit in 1974. No alcohol use, no drug use. REVIEW OF SYSTEMS: As per HPI. Rest of the review of systems negative. Allergies Allergy/AdvReac Type Severity Reaction Status Date / Time Penicillins Allergy Severe FACIAL Verified 09/05/20 02:44 SWELLING, RASH Sulfa (Sulfonamide Allergy Severe VOMITING Verified 09/05/20 02:44 Antibiotics) Home Medications Medication Instructions Recorded Confirmed Type [id number] C-Mn 1 cap PO QAM 03/25/18 09/05/20 History [Glucosamine Chondroitin MaxStr] omeprazole 20 mg PO QAM 03/25/18 09/05/20 History fluticasone propionate [Flonase 2 spray INTRANASAL DAILY PRN 01/09/19 09/05/20 History Allergy Relief] ibuprofen [Advil] 800 mg PO HS 01/09/19 09/05/20 History citalopram 10 mg PO DAILY 09/05/20 09/05/20 History Patient History Medical History (Updated 09/05/20 @ 06:46 by Elijah Mills MD) Anxiety Barretts esophagus Diverticular disease Endometrial adenocarcinoma Fatty liver disease, nonalcoholic GERD (gastroesophageal reflux disease) Hiatal hernia Osteoarthritis Surgical History (Updated 01/09/19 @ 17:26 by Melida Vargas RN) History of adenoidectomy History of bilateral tubal ligation History of cataract surgery BILATERAL History of tonsillectomy S/P small bowel resection DULCE MARIA-BSO, omenectomy, small bowel resection for endometrial adenocarcinoma involving rectosigmoid colon S/P DULCE MARIA-BSO Status post chemotherapy PT REPORTS FIRST CHEMO TX 05/14/18 Family History Sister Family hx of colon cancer Father Heart disease Mother Heart disease Social History Smoking Status: Former smoker Second Hand Exposure: No; Hx Alcohol Use: No Hx Substance Use: No Preferred Language: Welsh Communication Ability: Effective Crm Business Analyst Required: No Beliefs That Will Affect Care: None Current Living Situation: Family Feels Safe at Home: Yes Assistive Devices: Walker Review of Systems Review of Systems: All systems reviewed & are unremarkable except as noted in HPI & below Constitutional: as per Subjective / HPI Eyes: as per Subjective / HPI Ear, Nose, Mouth, Throat: as per Subjective / HPI Respiratory: as per Subjective / HPI Cardiovascular: as per Subjective / HPI Gastrointestinal: as per Subjective / HPI partial small bowel resection, SBO, GERD Genitourinary: as per Subjective / HPI endometrial adenocarcinoma, hysterectomy Musculoskeletal: as per Subjective / HPI Integumentary: as per Subjective / HPI Neurologic: as per Subjective / HPI Psychiatric: as per Subjective / HPI anxiety Endocrine: as per Subjective / HPI Hematologic / Lymphatic: as per Subjective / HPI Physical Exam Constitutional: WD/WN, vitals as above well developed and well nourished Eyes: PERRL, conjunctivae normal, anicteric sclerae ENMT: external ear and nose normal, oropharynx normal Neck: trachea midline, no thyromegaly Respiratory: normal respiratory effort, lungs clear to auscultation normal respiratory effort Cardiovascular: RRR, no murmur, no edema Rate/Rhythm: regular rate and regular rhythm Gastrointestinal (Abdomen): normal bowel sounds, soft, nontender, no hepatosplenomegaly middle line incisional hernia, reducible, no tenderness, no distend, BS + Musculoskeletal: no cyanosis or clubbing, extremities motor strength 5/5 Skin: no rashes, warm and dry Neurologic: awake Psychiatric: Orientation: alert and oriented x 3 Results & Data ([facility]) Vital Signs (Past 12 Hours) Vital Signs Temp Pulse Resp BP Pulse Ox 09/05/20 06:30 72 15 112/76 92 09/05/20 06:00 78 15 141/78 H 92 09/05/20 05:30 83 18 158/84 H 93 09/05/20 05:05 87 20 174/95 H 95 09/05/20 04:30 79 17 170/99 H 09/05/20 04:03 75 19 145/103 H 95 09/05/20 04:00 82 21 153/101 H 96 09/05/20 03:35 96 H 23 182/90 H 96 09/05/20 03:00 77 18 148/95 H 95 09/05/20 02:13 36.4 C L 88 14 187/85 H 97 Laboratory Results Abnormal lab results 09/05/20 09/05/20 Range/Units 02:26 02:26 Neut # (Auto) 7.44 H (1.4-6.5) K/uL Chloride 110 H (98-107) mmol/L Glucose 133 H (70-99) mg/dl AST 12 L (15-37) U/L Diagnostic Findings CT OF THE ABDOMEN AND PELVIS WITH CONTRAST CLINICAL HISTORY: Abdominal pain. History of small bowel obstruction. History of malignancy. COMPARISON STUDY: CT of the abdomen and pelvis January 09, 2019. KUB January 11, 2019. TECHNIQUE: Following IV administration of 77 mL of Optiray, axial images of the abdomen and pelvis were obtained from the lung bases to the proximal femurs. Images were reviewed in the axial, sagittal, and coronal planes. IV contrast was administered without complication. Automated exposure control was utilized for the study. A dose lowering technique was utilized adhering to the principles of ALARA. CT DOSE: 577.04 mGy.cm FINDINGS: No pneumatosis, free air or portal venous gas is present. Hepatic steatosis is noted. The spleen, adrenal glands, kidneys and pancreas are normal. There is no biliary or pancreatic ductal dilatation dictation. Stomach is mildly distended fluid-filled. Small bowel loops are mildly dilated and fluid- filled. Small bowel feces sign is noted with a small bowel loop within the pelvis at a small bowel anastomosis. This is shown on axial image 268 of 461. The distal small bowel is decompressed. There is a small amount of associated mesenteric infiltration and mesenteric ascites. Sigmoid resection is noted. A large ventral hernia which contains multiple bowel loops is noted. This does not result in the bowel obstruction. No lymphadenopathy is present. No suspicious osseous lesions are present. No hydronephrosis. Uterus is surgically absent. IMPRESSION: 1. Findings consistent with a small bowel obstruction with transition point within the pelvis, as described above. Transition point at or immediately adjacent to a small bowel anastomosis. Small amount of associated mesenteric infiltration and ascites. 2. Large ventral hernia which contains multiple bowel loops. This hernia does not result in a bowel obstruction.
[2020-09-05] MEDS: HEPARIN SOD 5,000 UNIT/0.5 ML VIAL SQ SCH ×3 (10:18→21:09)
[2020-09-05] MEDS: PANTOprazole 40 MG in SYRINGE 0 ML IV SCH (10:18)
--- NOTE | 2020-09-05 10:18 | XRay Report ---
SINGLE VIEW CHEST CLINICAL HISTORY: Enteric tube placement. FINDINGS: 2 AP, portable, upright chest radiographs are compared to chest x-ray and chest CT dated 03/2019. A left internal jugular central venous infusion port is unchanged in position. An enteric tu be has been placed. The tip projects below the diaphragm over the proximal stomach. The side holes ar e located at the level of the diaphragm. The heart is top normal for projection noting mild atheroscl erotic calcification of the thoracic aorta. There is chronic elevation right hemidiaphragm with bibas ilar scarring/atelectasis. No airspace consolidation or large pleural effusion is identified. No pneu mothorax is seen. The skeletal structures are osteopenic. The bony thorax is grossly intact. IMPRESSION: 1. An enteric tube has been placed as above. The sideholes project at the level of the diaphragm and this may need to be advanced. 2. The lungs are clear. ACT 112: Negative or not required by law. Electronically signed by: Theron Soto M.D. 09/05/2020 10:17 AM
[2020-09-05] MEDS ORDERED: CHLORASEPTIC 1.4% SOLN 180 ML BTL MT PRN (11:38)
[2020-09-05] MEDS ORDERED: Nursing to Pharmacy Communication SCH (11:45)
[2020-09-05] MEDS: ONDANSETRON INJ 2 MG/ML 2 ML VIAL IV PRN ×2 (12:48→19:55)
[2020-09-05 12:53] LABS: Appearance Urine Clear (Clear); Bilirubin Urine Negative (Negative); Blood Urine Negative (Negative); Color Urine Yellow; Glucose Urine UA Negative (Negative); Ketones Urine Negative (Negative); Leukocyte Esterase Urine Negative (Negative); Nitrite Urine Negative (Negative); Protein Urine Negative (Negative); Specific Gravity Urine > 1.045 (1.000-1.030); Urobilinogen Urine Negative (Negative); pH Urine 5.5 (4.5-7.5)
--- NOTE | 2020-09-05 13:13 | XRay Report ---
XR chest 1V portable HISTORY: Evaluate NG tube placement after advancement. COMPARISON: Chest 09/05/2020. FINDINGS: A nasogastric tube is been advanced. The sideholes now reside within the mid stomach with t he tip terminating at the fundus of the stomach. No pneumothorax or no pleural effusions. The heart i s normal in size. There is a tortuous thoracic aorta. Rotated study. Left jugular Port-A-Cath is unch anged in position. The tip terminates at the expected location of the left brachiocephalic vein. The lungs are clear. IMPRESSION: 1. Interval advancement of the nasogastric tube which is in good position. 2. No acute process within the chest. ACT 112: Negative or not required by law. Electronically signed by: Dariel Jackson M.D. 09/05/2020 1:12 PM
--- NOTE | 2020-09-05 13:31 | Communication Note ---
Date of Service: September 05, 2020 Patient seen and examined this morning. Reports that the moment she is feeling better. No further episodes of vomiting but does feel nauseous. NG tube is in place. Obtain chest x-ray to confirm NG tube. Appreciate surgery input. Patient remains n.p.o. Dilaudid for pain control. Continue with maintenance IV fluids.
--- NOTE | 2020-09-05 14:18 | Communication Note ---
Date of Service: September 05, 2020 Evaluated patient as nurse called with patient having emesis, vomiting and wanting NGT removed. Maria Alejandra states she is having emesis because of the tube and wants it removed. Has had this for 6-7 times already. Small amount of emesis each time mostly phlegm and clear/pink fluid. No bile or brown liquid. Having some pain in the left side, more so this afternoon than this morning. Passing gas when vomiting due to the pressure. But no sensation of flatus or bowel movement. Abdomen is soft, nondistended, tender in left abdomen however no guarding, rigidity, or peritonitis. There is only minimal clear/pink tinged fluid in the NGT canister since this am evaluation. CXR after advancement showed tube in good position. Plan: Advised patient that we would prefer to keep NGT for decompression but since she is very uncomfortable and having emesis secondary to tube which is making her anxious will remove. Educated pt that there is a chance that it may need replaced if she has increasing abdominal pain/distention/persistent vomiting. Patient understood. IV Dilaudid prn pain IV Zofran prn nausea, add IV Phenergan as well Encouraged ambulation KUB in am Keep npo may have mouth swabs Discussed with Dr. Oscar who agrees with above.
[2020-09-05] MEDS ORDERED: PROMETHAZINE HCL 12.5 MG in SODIUM CHLORIDE 0.9% 50 ML IV PRN (14:30)
--- NOTE | 2020-09-05 15:20 | Electrocardiogram Report ---
Test Reason : Blood Pressure : / mmHG Vent. Rate : 091 BPM Atrial Rate : 091 BPM P-R Int : 148 ms QRS Dur : 086 ms QT Int : 396 ms P-R-T Axes : 006 -61 023 degrees QTc Int : 487 ms Poor data quality, interpretation may be adversely affected Normal sinus rhythm Left axis deviation Abnormal ECG When compared with ECG of 09-JAN-2019 12:59, No significant change was found Confirmed by Sy Simmons ([id number]) on 09/05/2020 3:20:25 PM Referred By: REFERRED SELF Confirmed By:Tej Simmons
[2020-09-05] MEDS: ACETAMINOPHEN 1,000 MG/100 ML VIAL IV PRN (21:09)
[2020-09-06] MEDS: D5W AND NSS 1,000 ML IV SCH ×2 (00:50→08:41)
[2020-09-06] MEDS: HEPARIN SOD 5,000 UNIT/0.5 ML VIAL SQ SCH ×2 (05:16→13:53)
[2020-09-06 05:57] LABS: Basophils # (auto) 0.01 K/uL (0-0.2); Basophils % (auto) 0.2 %; Eosinophils # (auto) 0.03 K/uL (0-0.5); Eosinophils % (auto) 0.5 %; Hematocrit (blood only) 31.1 % (37-47); Hemoglobin 10.2 g/dL (12.0-16.0); Lymphocytes # (auto) 1.52 K/uL (1.2-3.4); Lymphocytes % (auto) 24.2 %; Mean Corpuscular Hemoglobin 29.1 pg (25-34); Mean Corpuscular Hgb Conc 32.8 g/dL (32-36); Mean Corpuscular Volume 88.6 fL (80-100); Mean Platelet Volume 10.3 fL (7.4-10.4); Monocytes # (auto) 0.51 K/uL (0.11-0.59); Monocytes % (auto) 8.1 %; Platelet Count 196 K/uL (130-400); RDW Coefficient of Variation 14.1 % (11.5-14.5); RDW Standard Deviation 46.1 fL (36.4-46.3); Red Blood Count 3.51 M/uL (4.2-5.4); White Blood Count 6.27 K/uL (4.8-10.8)
[2020-09-06 06:33] LABS: BUN Creatinine Ratio 15.1 (10-20); Calcium 8.2 mg/dl (8.5-10.1); Creatinine Clr Calc Pharmacy 95.5 ml/min; Potassium 3.2 mmol/L (3.5-5.1)
--- NOTE | 2020-09-06 08:10 | XRay Report ---
XR KUB/Abdomen 1 view CLINICAL HISTORY: Small bowel obstruction COMPARISON STUDY: 01/11/2019 FINDINGS: There is no pathologic bowel dilatation. There is contrast within the bladder secondary to a prior CT scan. There are nonspecific pelvic basin calcifications, likely representing phleboliths. IMPRESSION: No evidence of bowel obstruction on conventional radiographic evaluation. ACT 112: Negative or not required by law. Electronically signed by: Madhu Gautam M.D. 09/06/2020 8:08 AM
[2020-09-06] MEDS: ACETAMINOPHEN 1,000 MG/100 ML VIAL IV PRN (08:41)
--- NOTE | 2020-09-06 09:13 | Surgery Progress Note ---
Date of Service September 06, 2020 Assessment & Plan (1) Small bowel obstruction: Resolved KUB this am showing no evidence of bowel obstruction, air within the colon no abdominal pain, n/v Hypokalemia- 3.2 Plan: Advance to clear liquids advised to go slowly PO Miralax now as patient requires daily Miralax for past 1.5 years (last dose Thursday) Encouraged ambulating hallway to increase GI motility Replace potassium Continue medical management Dr. Oscar has seen patient and agrees with above. Admission and Anticipated Discharge Date Admission Date: September 05, 2020 Subjective feeling much better today since NGT removed yesterday afternoon no further nausea or vomiting no abdominal pain still having left sided rib pain, but better not worse passing some gas Physical Exam Constitutional: WD/WN, vitals as above Respiratory: normal respiratory effort; no respiratory distress and no labored breathing Chest (Breasts): Chest: normal inspection of chest Additional Comments: tenderness of the low left ribs Gastrointestinal (Abdomen): Inspection/Auscultation: abdomen normal to inspection and + abdominal surgical scar (mid line laparotomy scar present); abdomen not distended Percussion/Palpation: abdomen soft; abdomen nontender, no guarding and abdomen not rigid Skin: no rashes, warm and dry Psychiatric: Orientation: alert and oriented x 3 Results & Data ([facility]) Vital Signs (Past 12 Hours) Vital Signs Temp Pulse Resp BP Pulse Ox 09/06/20 07:46 36.8 C 75 16 156/84 H 95 09/05/20 23:32 36.5 C 70 16 150/90 H 95 Laboratory Results 09/06/20 09/06/20 09/05/20 Range/Units 05:05 05:05 Unknown WBC 6.27 (4.8-10.8) K/uL RBC 3.51 L (4.2-5.4) M/uL Hgb 10.2 L (12.0-16.0) g/dL Hct 31.1 L (37-47) % MCV 88.6 (80-100) fL MCH 29.1 (25-34) pg MCHC 32.8 (32-36) g/dL RDW Std Deviation 46.1 (36.4-46.3) fL RDW Coeff of Dianne 14.1 (11.5-14.5) % Plt Count 196 (130-400) K/uL MPV 10.3 (7.4-10.4) fL Immature Gran % (Auto) 0.0 % Neut % (Auto) 67.0 % Lymph % (Auto) 24.2 % [place] % (Auto) 8.1 % Eos % (Auto) 0.5 % Baso % (Auto) 0.2 % Neut # (Auto) 4.20 (1.4-6.5) K/uL Lymph # (Auto) 1.52 (1.2-3.4) K/uL [place] # (Auto) 0.51 (0.11-0.59) K/uL Eos # (Auto) 0.03 (0-0.5) K/uL Baso # (Auto) 0.01 (0-0.2) K/uL Immature Gran # (Auto) 0.00 (0.00-0.02) K/uL Sodium 145 (136-145) mmol/L Potassium 3.2 L (3.5-5.1) mmol/L Chloride 114 H (98-107) mmol/L Carbon Dioxide 27 (21-32) mmol/L Anion Gap 4.0 (3-11) BUN 9 (7-18) mg/dl Creatinine 0.58 L (0.6-1.2) mg/dl Est Cr Clr Drug Dosing 95.5 ml/min Est GFR ( Amer) 109.0 Est GFR (Non-Af Amer) 94.0 BUN/Creatinine Ratio 15.1 (10-20) Glucose 120 H (70-99) mg/dl Calcium 8.2 L (8.5-10.1) mg/dl Magnesium 2.0 (1.8-2.4) mg/dl Troponin I (0-0.045) ng/ml Urine Color Yellow Urine Appearance Clear (Clear) Urine pH 5.5 (4.5-7.5) Ur Specific [place] > 1.045 H (1.000-1.030) Urine Protein Negative (Negative) Urine Glucose (UA) Negative (Negative) Urine Ketones Negative (Negative) Urine Blood Negative (Negative) Urine Nitrite Negative (Negative) Urine Bilirubin Negative (Negative) Urine Urobilinogen Negative (Negative) Ur Leukocyte Esterase Negative (Negative) 09/05/20 Range/Units 13:58 WBC (4.8-10.8) K/uL RBC (4.2-5.4) M/uL Hgb (12.0-16.0) g/dL Hct (37-47) % MCV (80-100) fL MCH (25-34) pg MCHC (32-36) g/dL RDW Std Deviation (36.4-46.3) fL RDW Coeff of Dianne (11.5-14.5) % Plt Count (130-400) K/uL MPV (7.4-10.4) fL Immature Gran % (Auto) % Neut % (Auto) % Lymph % (Auto) % [place] % (Auto) % Eos % (Auto) % Baso % (Auto) % Neut # (Auto) (1.4-6.5) K/uL Lymph # (Auto) (1.2-3.4) K/uL [place] # (Auto) (0.11-0.59) K/uL Eos # (Auto) (0-0.5) K/uL Baso # (Auto) (0-0.2) K/uL Immature Gran # (Auto) (0.00-0.02) K/uL Sodium (136-145) mmol/L Potassium (3.5-5.1) mmol/L Chloride (98-107) mmol/L Carbon Dioxide (21-32) mmol/L Anion Gap (3-11) BUN (7-18) mg/dl Creatinine (0.6-1.2) mg/dl Est Cr Clr Drug Dosing ml/min Est GFR ( Amer) Est GFR (Non-Af Amer) BUN/Creatinine Ratio (10-20) Glucose (70-99) mg/dl Calcium (8.5-10.1) mg/dl Magnesium (1.8-2.4) mg/dl Troponin I < 0.015 (0-0.045) ng/ml Urine Color Urine Appearance (Clear) Urine pH (4.5-7.5) Ur Specific [place] (1.000-1.030) Urine Protein (Negative) Urine Glucose (UA) (Negative) Urine Ketones (Negative) Urine Blood (Negative) Urine Nitrite (Negative) Urine Bilirubin (Negative) Urine Urobilinogen (Negative) Ur Leukocyte Esterase (Negative) Diagnostic Findings XR KUB/Abdomen 1 view CLINICAL HISTORY: Small bowel obstruction COMPARISON STUDY: 01/11/2019 FINDINGS: There is no pathologic bowel dilatation. There is contrast within the bladder secondary to a prior CT scan. There are nonspecific pelvic basin calcifications, likely representing phleboliths. IMPRESSION: No evidence of bowel obstruction on conventional radiographic evaluation.
[2020-09-06] MEDS ORDERED: POLYETHYLENE (MIRALAX) 17 GM PACK PO SCH (09:15)
[2020-09-06] MEDS ORDERED: POTASSIUM CHLORIDE CRTAB 20 MEQ TABCR PO STA (09:18)
[2020-09-06] MEDS: PANTOprazole 40 MG in SYRINGE 0 ML IV SCH (11:06)
--- NOTE | 2020-09-11 15:40 | Discharge Summary ---
Date of Service September 11, 2020 Admission HPI Per Admitting Provider This is a 70-year-old female with past medical history significant for endometrial adenocarcinoma, poorly differentiated, uterine mass measuring 11 cm, diagnosed in April of 2018 with involvement of right vaginal introitus, vulvar region and liver metastasis and multiple lymph nodes, status post 6 cycles of chemotherapy and underwent surgical intervention in October 2018 with no residual adenocarcinoma noted. The patient also has history of gastroesophageal reflux disease and depression. The patient was admitted to the hospital in December 2018 with small-bowel obstruction post surgery for endometrial cancer and improved with conservative management. Again comes with abdominal pain, nausea, vomiting, pain 7/10 in severity. Had loose stools early in the morning. No blood in the stools. Currently is status post NG tube. Feeling anxious. No shortness of breath, no cough, no fever, no chills. Normal bladder movements. No headache, no blurred vision, no earache, no runny nose, no sore throat. Before this episode, appetite was okay. Admission Exam Per Admitting Provider The patient is of moderate build, not in acute distress. VITAL SIGNS: Temperature 36.4, pulse 100, respiratory rate 17, blood pressure 170/99, oxygen 95% on room air. HEENT: Pupils equal, round, and reactive to light. Oral mucosa moist. NECK: No JVD, no neck masses. CARDIOVASCULAR: S1, S2 heard. Regular rate and rhythm, no murmur, no gallop. RESPIRATORY SYSTEM: Normal AP diameter. No accessory muscle use. No wheezing, no crackles. ABDOMEN: Soft, bowel sounds sluggish, distended, mild abdominal discomfort. No guarding. CENTRAL NERVOUS SYSTEM: Cranial nerves II-XII grossly intact, nonfocal. EXTREMITIES: No edema, no erythema. Principal Diagnosis small bowel obstruction Discharge Exam General: A&Ox3. NGT in place. HENT: NCAT, MMM, EOMI Eyes: PERRLA Neck: Supple, normal range of motion CVS: normal rate and rhythm Resp: b/l good breath sounds Abdomen: Soft, minimal tenderness appreciated Extremities: No c/c/e Neuro: face symmetric, strength grossly equal, no focal deficit Skin: warm and dry, no rashes/lesions/errythema MSK: normal ROM, no joint swelling/erythema Discharge Data Allergies Allergy/AdvReac Type Severity Reaction Status Date / Time Penicillins Allergy Severe FACIAL Verified 09/05/20 02:44 SWELLING, RASH Sulfa (Sulfonamide Allergy Severe VOMITING Verified 09/05/20 02:44 Antibiotics) Consultations 09/05/20 04:19 ED Decision to Admit Stat 09/05/20 09:01 Consult General Surgery Routine Ordered Studies 09/05/20 03:20 CT abd pelvis IV con only Urgent Hospital Course (1) Small bowel obstruction: Patient is 70-year-old female who was admitted with abdominal pain. She was found to have small bowel obstruction. Surgery was consulted. NG tube was placed. Patient was managed conservatively.. Patient was stable prior to discharge. Had a bowel function prior to discharge. The day of discharge [place] did not have any complaints. Total Time Total Time Spent Total Time Spent (In Minutes): 35 Discharge Plan Discharge Items Patient Disposition: Home - Self-Care Reason For Visit: ABDOMINAL PAIN Discharge Diagnosis: small bowel obstruction Activity: Resume your previous activity Non-emergency contact: Primary Care Provider Call non-emergency contact if: your symptoms worsen Follow-up/Referrals: Joshua You DO [Primary Care Provider] - (Date & Time 09/12/2020 10:00 AM Provider Joshua You DO Department Family Practice [facility] ) Diet: Regular and Heart Healthy Addtl Attending Provider Instructions: Follow-up with your primary care physician within 1 week. Pending Studies at Discharge: No Stand-Alone Forms: [employer], Smoking Cessation Medications and DC Order Prescriptions: Continued omeprazole 20 mg Capsule,Delayed Release(Dr/Ec) 20 mg PO QAM RF: 0 [id number] C-Mn [Glucosamine Chondroitin MaxStr] 500-400 mg Capsule 1 cap PO QAM RF: 0 ibuprofen [Advil] 200 mg Tablet 800 mg PO HS RF: 0 fluticasone propionate [Flonase Allergy Relief] 50 mcg/actuation [place],Suspension 2 spray INTRANASAL DAILY PRN (Reason: Nasal Congestion) RF: 0 citalopram 20 mg tablet 10 mg PO DAILY RF: 0 Discharge Orders: Discharge Order (Routine); Ordered 09/06/20 Ordered By: Rl Liz/Other Patient Handouts: Small Bowel Obstruction Admission Data Admit Date/Time: 09/05/20 04:55 Attending Provider: Rl Boateng Admit Provider: Morgan Wetzel Primary Care Provider: Joshua You Other Providers: Aniyah Oscar Other Interventions: Discharge Summary Assessment (RN) Last Done: 09/06/20 14:25
== END 2020-09-06 15:56 | disposition home or self-care (01) | DRG 389 ==
LOC: ED 02:07 → 3N 04:55

== ENCOUNTER 2021-02-21 10:16 | Inpatient (IN) ==
[2021-02-21] MEDS ORDERED: ONDANSETRON INJ 2 MG/ML 2 ML VIAL IV STA (11:26)
[2021-02-21 11:42] LABS: Basophils # (auto) 0.02 K/uL (0-0.2); Basophils % (auto) 0.1 %; Hematocrit (blood only) 28.3 % (37-47); Hemoglobin 9.5 g/dL (12.0-16.0); Immature Granulocytes # (auto) 0.04 K/uL (0.00-0.02); Immature Granulocytes % (auto) 0.3 %; Lymphocytes # (auto) 0.72 K/uL (1.2-3.4); Lymphocytes % (auto) 4.8 %; Mean Corpuscular Hemoglobin 28.8 pg (25-34); Mean Corpuscular Hgb Conc 33.6 g/dL (32-36); Mean Corpuscular Volume 85.8 fL (80-100); Mean Platelet Volume 8.9 fL (7.4-10.4); Monocytes # (auto) 1.17 K/uL (0.11-0.59); Monocytes % (auto) 7.8 %; Neutrophils # (auto) 13.07 K/uL (1.4-6.5); Platelet Count 432 K/uL (130-400); RDW Coefficient of Variation 14.1 % (11.5-14.5); RDW Standard Deviation 44.8 fL (36.4-46.3); White Blood Count 15.02 K/uL (4.8-10.8)
[2021-02-21 12:03] LABS: Albumin Level 2.7 gm/dl (3.4-5.0); BUN Creatinine Ratio 12.2 (10-20); Calcium 9.1 mg/dl (8.5-10.1); Creatinine Clr Calc Pharmacy 77.6 ml/min; Est GFR (African American) 102.9 ml/min; Est GFR (Non-African American) 88.8 ml/min; Potassium 3.4 mmol/L (3.5-5.1)
[2021-02-21 12:05] LABS: Albumin Globulin Ratio 0.6 (0.9-2); Bilirubin,Total 0.7 mg/dl (0.2-1); Globulin 4.6 gm/dl (2.5-4.0); Total Protein 7.3 gm/dl (6.4-8.2)
[2021-02-21] MEDS ORDERED: OPTIRAY 320 125ml IV ONE (12:43)
--- NOTE | 2021-02-21 13:01 | CT Scan Report ---
CT ANGIOGRAPHY OF THE CHEST, PULMONARY EMBOLUS PROTOCOL CLINICAL HISTORY: Shortness of breath. Recent hernia surgery. COMPARISON STUDY: Chest CT September 25, 2018. Chest radiograph September 05, 2020. TECHNIQUE: Following IV administration of 120 mL of Optiray, helical axial images of the chest were o btained utilizing the pulmonary embolus protocol. Maximal intensity projections and sagittal and cor onal reformats were viewed on an independent 3D workstation. IV contrast was administered without co mplication. Automated exposure control was utilized for the study. A dose lowering technique was ut ilized adhering to the principles of ALARA. CT DOSE: 1171.14 mGycm FINDINGS: No pulmonary emboli are identified. There is no thoracic aortic dissection. Size of the he art is at the upper limits of normal. There is no pericardial effusion. No pneumothorax or pleural ef fusion is noted. There is no consolidation to suggest pneumonia. There are no suspicious pulmonary no dules. Central airways are patent. Mild elevation the right hemidiaphragm is unchanged. Abdomen and p harriett CT will be reported separately. IMPRESSION: 1. No pulmonary emboli identified. 2. No acute process within the chest. ACT 112: Negative or not required by law. Electronically signed by: Florentino Estevez M.D. 02/21/2021 12:59 PM
[2021-02-21] MEDS ORDERED: ACETAMINOPHEN 1,000 MG/100 ML VIAL IV STA (13:09)
[2021-02-21] MEDS: SODIUM CHLORIDE 0.9% 1000ML 1,000 ML IV SCH ×2 (13:15→20:58)
--- NOTE | 2021-02-21 13:19 | Emergency Department Note ---
History of Present Illness General Chief complaint: Illness Stated complaint: NAUSEA,ABD PAIN,BAD HEADACHE,FEVER,S/P SURG Time Seen by Provider: 02/21/21 11:41 Source: patient Mode of arrival: ambulatory Limitations: no limitations History of Present Illness Provider complaint: Abdominal pain, fevers, chills Onset (ago): day(s) Maximum Pain Intensity: 8 Associated symptoms: + fever/chills, + loss of appetite, + malaise and + nausea/vomiting; no chest pain, no cough, no headaches or no shortness of breath Treatments prior to arrival: none This is a 70-year-old female presents emergency department complaining of abd ominal pain, nausea, fevers and chills. Patient underwent incisional hernia repair at [facility] on February 08. States that she was discharged after 3 days, and went home to begin to recuperate. Patient felt she was doing well, until she began developing nausea and abdominal pain last week. She had her follow-up appointment earlier this week on Thursday. She did discuss with them her increasing abdominal pain, fevers and chills, as well as intermittent nausea at that time. She states drains were removed, her incision checked, and she was told this was an expected postop course and that it would take her time to recover. Patient states last night her fever was greater than 102 F. She states she is continued feeling worse and is concerned for occult infection as she states she has had postop infections previously. Patient states she was tested for Covid prior to surgery and was negative. Patient states she is urinating normally, passing gas and having bowel movements. Patient states at times she does feel like she cannot draw a deep breath and although states she is using her incentive spirometer at home without difficulty. Pt seen during a time of high acuity and national emergency pandemic while wearing PPE. Home Medications Medication Instructions Recorded Confirmed Type [id number] C-Mn 500 1 cap PO QAM 03/25/18 02/21/21 History mg-400 mg capsule (Glucosamine Chondroitin Maximum Strength) omeprazole 20 mg capsule,delayed 20 mg PO QAM 03/25/18 02/21/21 History release fluticasone propionate 50 2 spray INTRANASAL DAILY PRN 01/09/19 02/21/21 History mcg/actuation nasal spray,suspension (Flonase Allergy Relief) citalopram 20 mg tablet 20 mg PO DAILY 09/05/20 02/21/21 History Allergies Allergy/AdvReac Type Severity Reaction Status Date / Time Penicillins Allergy Severe FACIAL Verified 02/21/21 12:23 SWELLING, RASH Sulfa (Sulfonamide Allergy Severe VOMITING Verified 02/21/21 12:23 Antibiotics) Past Med/Surg History Medical History (Updated 02/21/21 @ 19:12 by Elizabeth Darden DO) Anxiety Barretts esophagus Diverticular disease Endometrial adenocarcinoma Fatty liver disease, nonalcoholic GERD (gastroesophageal reflux disease) Hiatal hernia Osteoarthritis Surgical History (Updated 02/21/21 @ 15:41 by Kristie Ruffin PA-C) History of adenoidectomy History of bilateral tubal ligation History of cataract surgery BILATERAL History of tonsillectomy History of ventral hernia repair S/P small bowel resection DULCE MARIA-BSO, omenectomy, small bowel resection for endometrial adenocarcinoma involving rectosigmoid colon S/P DULCE MARIA-BSO Status post chemotherapy PT REPORTS FIRST CHEMO [place] 05/14/18 Family History Sister Family hx of colon cancer Father Heart disease Mother Heart disease Social History Smoking Status: Former smoker Second Hand Exposure: No; Hx Alcohol Use: No Hx Substance Use: No Preferred Language: Mozambican Communication Ability: Effective Cushion Maker Hand Required: No Beliefs That Will Affect Care: None Current Living Situation: Family Feels Safe at Home: Yes Assistive Devices: None Review of Systems A total of 10 systems reviewed and were otherwise negative All systems reviewed & are unremarkable except as noted in HPI & below Physical Exam Vital Signs Vital Signs - 24 hr 02/21/21 10:23 02/21/21 11:11 02/21/21 11:30 Temperature 37.1 C Temperature Source Temporal Artery Scan Pulse Rate 121 H 103 H Pulse Rate [Apical] 106 H Pulse Rate from SpO2 Sensor 103 H Respiratory Rate 20 24 26 H Respiratory Effort / Characteristics Non-Labored Spontaneous Respiratory Depth Normal Blood Pressure 123/69 144/74 H Blood Pressure [Right Arm] 138/76 Blood Pressure Mean 87 97 Blood Pressure Mean [Right Arm] 96 Blood Pressure Position Sitting Pulse Oximetry 95 96 96 Oxygen Delivery Method Room Air Room Air Room Air Sepsis Recent Fever Within 48 Hours Yes Sepsis New/Unexplained Change in Mental Status N/A Sepsis Action Taken by Nursing No Action Required 02/21/21 12:00 02/21/21 12:30 02/21/21 13:00 Temperature Temperature Source Pulse Rate 103 H 100 H 103 H Pulse Rate [Apical] Pulse Rate from SpO2 Sensor 103 H 99 H 104 H Respiratory Rate 26 H 28 H 19 Respiratory Effort / Characteristics Respiratory Depth Blood Pressure 138/75 135/75 130/75 Blood Pressure [Right Arm] Blood Pressure Mean 96 95 93 Blood Pressure Mean [Right Arm] Blood Pressure Position Pulse Oximetry 95 95 97 Oxygen Delivery Method Room Air Room Air Room Air Sepsis Recent Fever Within 48 Hours Sepsis New/Unexplained Change in Mental Status Sepsis Action Taken by Nursing 02/21/21 13:30 02/21/21 14:00 02/21/21 14:30 Temperature Temperature Source Pulse Rate 95 H 92 H 81 Pulse Rate [Apical] Pulse Rate from SpO2 Sensor 95 H 92 H 81 Respiratory Rate 26 H 20 19 Respiratory Effort / Characteristics Respiratory Depth Blood Pressure 123/69 125/68 119/66 Blood Pressure [Right Arm] Blood Pressure Mean 87 87 83 Blood Pressure Mean [Right Arm] Blood Pressure Position Pulse Oximetry 95 96 95 Oxygen Delivery Method Room Air Room Air Room Air Sepsis Recent Fever Within 48 Hours Sepsis New/Unexplained Change in Mental Status Sepsis Action Taken by Nursing 02/21/21 15:00 02/21/21 16:00 02/21/21 17:00 Temperature Temperature Source Pulse Rate 83 76 73 Pulse Rate [Apical] Pulse Rate from SpO2 Sensor 82 Respiratory Rate 16 19 18 Respiratory Effort / Characteristics Respiratory Depth Blood Pressure 120/66 109/63 109/64 Blood Pressure [Right Arm] Blood Pressure Mean 84 78 79 Blood Pressure Mean [Right Arm] Blood Pressure Position Pulse Oximetry 96 96 95 Oxygen Delivery Method Room Air Sepsis Recent Fever Within 48 Hours Sepsis New/Unexplained Change in Mental Status Sepsis Action Taken by Nursing 02/21/21 18:00 Temperature Temperature Source Pulse Rate 75 Pulse Rate [Apical] Pulse Rate from SpO2 Sensor 76 Respiratory Rate 20 Respiratory Effort / Characteristics Respiratory Depth Blood Pressure 122/69 Blood Pressure [Right Arm] Blood Pressure Mean 86 Blood Pressure Mean [Right Arm] Blood Pressure Position Pulse Oximetry 97 Oxygen Delivery Method Sepsis Recent Fever Within 48 Hours Sepsis New/Unexplained Change in Mental Status Sepsis Action Taken by Nursing GENERAL: alert, well appearing, well nourished, no distress, non-toxic EYE EXAM: normal conjunctiva, PERRL and EOM's grossly intact OROPHARYNX: no exudate, no erythema, lips, buccal mucosa, and tongue normal and mucous membranes are moist NECK: supple, no nuchal rigidity, no adenopathy, non-tender LUNGS: Clear to auscultation. Normal chest wall mechanics, no w/r/r HEART: no murmurs, S1 normal and S2 normal ABDOMEN: abdomen soft, non-tender, normo-active bowel sounds, no masses, no rebound or guarding. Healing vertical midline incision with skin adhesive intact. No erythema around the wound, no drainage or discharge, no bleeding. Mild pain with palpation along the left lateral inferior ribs and costal margin. BACK: Back is symmetrical on inspection and there is no deformity, no midline tenderness, no CVA tenderness. SKIN: no rashes and no bruising UPPER EXTREMITIES: upper extremities are grossly normal. FROM, nml pulses b/l. LOWER EXTREMITIES: No pitting edema. FROM, nml pulses b/l. NEURO EXAM: Normal sensorium, cranial nerves II-XII grossly intact, normal speech, no gross weakness of arms, no gross weakness of legs. Gross sensation intact. Course Course 1330: Patient updated on results. Pain is improved with pain medication. 1342: Discussed with [facility] [place], Dr. Weiss. They are happy to accept the patient down there for transfer, however they have no current available beds. No additional orders requested. 1400: Discussed with [facility]. They will monitor as transfer is pending. Administered Medications Fentanyl Citrate (Fentanyl Citrate 100 Mcg/2 Ml Vial) 50 mcg IV Q15M PRN PRN Reason: Pain Stop: 03/07/21 13:08 Last Admin: 02/21/21 15:35 Dose: 50 mcg Documented by: [id number] Admin: 02/21/21 14:06 Dose: 50 mcg Documented by: [id number] Sodium Chloride (Nss 1000ml) 1,000 mls @ 125 mls/hr IV .Q8H NORBERTO Stop: 03/23/21 11:44 Last Admin: 02/21/21 13:15 Dose: 125 mls/hr Documented by: [id number] Discontinued Medications Acetaminophen (Ofirmev) 1,000 mg in 100 mls @ 400 mls/hr IV NOW STA Stop: 02/21/21 13:23 Last Infusion: 02/21/21 13:31 Dose: 0 mls/hr Documented by: [id number] Admin: 02/21/21 13:16 Dose: 400 mls/hr Documented by: [id number] Ciprofloxacin (Cipro / D5w) 400 mg in 200 mls @ 100 mls/hr IV NOW STA; Protocol Stop: 02/21/21 15:29 Last Infusion: 02/21/21 16:11 Dose: 0 mls/hr Documented by: [id number] Admin: 02/21/21 14:11 Dose: 100 mls/hr Documented by: [id number] Metronidazole (Flagyl) 500 mg in 100 mls @ 100 mls/hr IV NOW STA Stop: 02/21/21 14:29 Last Infusion: 02/21/21 15:21 Dose: 0 mls/hr Documented by: [id number] Admin: 02/21/21 14:10 Dose: 100 mls/hr Documented by: [id number] Potassium Chloride (K Alfonso / Wtr) 10 meq in 100 mls @ 100 mls/hr IV ONE ONE Stop: 02/21/21 15:51 Last Infusion: 02/21/21 16:27 Dose: 0 mls/hr Documented by: [id number] Admin: 02/21/21 15:25 Dose: 100 mls/hr Documented by: [id number] Ioversol (Optiray 320 125ml) 120 ml IV ONCE ONE Stop: 02/21/21 12:44 Last Admin: 02/21/21 12:45 Dose: 120 ml Documented by: [id number] Ondansetron HCl (Ondansetron Inj 2 Mg/Ml 2 Ml Vial) 4 mg IV NOW STA Stop: 02/21/21 11:27 Last Admin: 02/21/21 11:29 Dose: 4 mg Documented by: [id number] Medical Decision Making Differential Diagnosis Differential diagnoses includes but is not limited to gastritis, peptic ulcer disease, GERD, gallbladder disease, pancreatitis, small bowel obstruction, acute coronary syndrome, pericarditis, ischemic bowel, irritable bowel disease, irrita ble bowel syndrome, appendicitis, diverticulitis, malignancy, hernia, urinary tract infection, torsion, [/ectopic (if female)], perforation, trauma, infectious. Medical Records Attestation: I reviewed the patient's medical records. Home Medications Current Medication List: was personally reviewed by me Laboratory Data Attestation: I reviewed the patient's lab results. Result diagrams: 02/21/21 11:25 02/21/21 11:25 Lab Results 02/21/21 02/21/21 02/21/21 Range/Units 11:25 11:25 12:10 WBC 15.02 H (4.8-10.8) K/uL RBC 3.30 L (4.2-5.4) M/uL Hgb 9.5 L (12.0-16.0) g/dL Hct 28.3 L (37-47) % MCV 85.8 (80-100) fL MCH 28.8 (25-34) pg MCHC 33.6 (32-36) g/dL RDW Std Deviation 44.8 (36.4-46.3) fL RDW Coeff of Dianne 14.1 (11.5-14.5) % Plt Count 432 H (130-400) K/uL MPV 8.9 (7.4-10.4) fL Immature Gran % (Auto) 0.3 % Neut % (Auto) 87.0 % Lymph % (Auto) 4.8 % [place] % (Auto) 7.8 % Eos % (Auto) 0.0 % Baso % (Auto) 0.1 % Neut # (Auto) 13.07 H (1.4-6.5) K/uL Lymph # (Auto) 0.72 L (1.2-3.4) K/uL [place] # (Auto) 1.17 H (0.11-0.59) K/uL Eos # (Auto) 0.00 (0-0.5) K/uL Baso # (Auto) 0.02 (0-0.2) K/uL Immature Gran # (Auto) 0.04 H (0.00-0.02) K/uL Sodium 133 L (136-145) mmol/L Potassium 3.4 L (3.5-5.1) mmol/L Chloride 101 (98-107) mmol/L Carbon Dioxide 25 (21-32) mmol/L Anion Gap 7.0 (3-11) BUN 8 (7-18) mg/dl Creatinine 0.69 (0.6-1.2) mg/dl Est Cr Clr Drug Dosing 77.6 ml/min Est GFR ( Amer) 102.9 ml/min Est GFR (Non-Af Amer) 88.8 ml/min BUN/Creatinine Ratio 12.2 (10-20) Glucose 128 H (70-99) mg/dl Lactate 0.8 (0.4-2.0) mmol/L Calcium 9.1 (8.5-10.1) mg/dl Total Bilirubin 0.7 (0.2-1) mg/dl AST 13 L (15-37) U/L ALT 16 (12-78) U/L Alkaline Phosphatase 75 (45-117) U/L Troponin I (0-0.045) ng/ml Total Protein 7.3 (6.4-8.2) gm/dl Albumin 2.7 L (3.4-5.0) gm/dl Globulin 4.6 H (2.5-4.0) gm/dl Albumin/Globulin Ratio 0.6 L (0.9-2) Lipase 70 L (73-393) U/L Urine Color Urine Appearance (Clear) Urine pH (4.5-7.5) Ur Specific [place] (1.000-1.030) Urine Protein (Negative) Urine Glucose (UA) (Negative) Urine Ketones (Negative) Urine Blood (Negative) Urine Nitrite (Negative) Urine Bilirubin (Negative) Urine Urobilinogen (Negative) Ur Leukocyte Esterase (Negative) Urine WBC (Auto) (0-5) /hpf Urine RBC (Auto) (0-4) /hpf U Hyaline Cast (Auto) (0-5) /lpf U Epithel Cells (Auto) (0-5) /lpf Urine Bacteria (Auto) (Negative) COVID-19 Eval Order SARS-CoV-2 (PCR) (Negative) Blood Type Antibody Screen 02/21/21 02/21/21 02/21/21 Range/Units 13:19 13:19 14:47 WBC (4.8-10.8) K/uL RBC (4.2-5.4) M/uL Hgb (12.0-16.0) g/dL Hct (37-47) % MCV (80-100) fL MCH (25-34) pg MCHC (32-36) g/dL RDW Std Deviation (36.4-46.3) fL RDW Coeff of Dianne (11.5-14.5) % Plt Count (130-400) K/uL MPV (7.4-10.4) fL Immature Gran % (Auto) % Neut % (Auto) % Lymph % (Auto) % [place] % (Auto) % Eos % (Auto) % Baso % (Auto) % Neut # (Auto) (1.4-6.5) K/uL Lymph # (Auto) (1.2-3.4) K/uL [place] # (Auto) (0.11-0.59) K/uL Eos # (Auto) (0-0.5) K/uL Baso # (Auto) (0-0.2) K/uL Immature Gran # (Auto) (0.00-0.02) K/uL Sodium (136-145) mmol/L Potassium (3.5-5.1) mmol/L Chloride (98-107) mmol/L Carbon Dioxide (21-32) mmol/L Anion Gap (3-11) BUN (7-18) mg/dl Creatinine (0.6-1.2) mg/dl Est Cr Clr Drug Dosing ml/min Est GFR ( Amer) ml/min Est GFR (Non-Af Amer) ml/min BUN/Creatinine Ratio (10-20) Glucose (70-99) mg/dl Lactate (0.4-2.0) mmol/L Calcium (8.5-10.1) mg/dl Total Bilirubin (0.2-1) mg/dl AST (15-37) U/L ALT (12-78) U/L Alkaline Phosphatase (45-117) U/L Troponin I < 0.015 (0-0.045) ng/ml Total Protein (6.4-8.2) gm/dl Albumin (3.4-5.0) gm/dl Globulin (2.5-4.0) gm/dl Albumin/Globulin Ratio (0.9-2) Lipase (73-393) U/L Urine Color Urine Appearance (Clear) Urine pH (4.5-7.5) Ur Specific [place] (1.000-1.030) Urine Protein (Negative) Urine Glucose (UA) (Negative) Urine Ketones (Negative) Urine Blood (Negative) Urine Nitrite (Negative) Urine Bilirubin (Negative) Urine Urobilinogen (Negative) Ur Leukocyte Esterase (Negative) Urine WBC (Auto) (0-5) /hpf Urine RBC (Auto) (0-4) /hpf U Hyaline Cast (Auto) (0-5) /lpf U Epithel Cells (Auto) (0-5) /lpf Urine Bacteria (Auto) (Negative) COVID-19 Eval Order Covid19 at [facility] SARS-CoV-2 (PCR) NEGATIVE (Negative) Blood Type Antibody Screen 02/21/21 02/21/21 Range/Units 15:27 16:05 WBC (4.8-10.8) K/uL RBC (4.2-5.4) M/uL Hgb (12.0-16.0) g/dL Hct (37-47) % MCV (80-100) fL MCH (25-34) pg MCHC (32-36) g/dL RDW Std Deviation (36.4-46.3) fL RDW Coeff of Dianne (11.5-14.5) % Plt Count (130-400) K/uL MPV (7.4-10.4) fL Immature Gran % (Auto) % Neut % (Auto) % Lymph % (Auto) % [place] % (Auto) % Eos % (Auto) % Baso % (Auto) % Neut # (Auto) (1.4-6.5) K/uL Lymph # (Auto) (1.2-3.4) K/uL [place] # (Auto) (0.11-0.59) K/uL Eos # (Auto) (0-0.5) K/uL Baso # (Auto) (0-0.2) K/uL Immature Gran # (Auto) (0.00-0.02) K/uL Sodium (136-145) mmol/L Potassium (3.5-5.1) mmol/L Chloride (98-107) mmol/L Carbon Dioxide (21-32) mmol/L Anion Gap (3-11) BUN (7-18) mg/dl Creatinine (0.6-1.2) mg/dl Est Cr Clr Drug Dosing ml/min Est GFR ( Amer) ml/min Est GFR (Non-Af Amer) ml/min BUN/Creatinine Ratio (10-20) Glucose (70-99) mg/dl Lactate (0.4-2.0) mmol/L Calcium (8.5-10.1) mg/dl Total Bilirubin (0.2-1) mg/dl AST (15-37) U/L ALT (12-78) U/L Alkaline Phosphatase (45-117) U/L Troponin I (0-0.045) ng/ml Total Protein (6.4-8.2) gm/dl Albumin (3.4-5.0) gm/dl Globulin (2.5-4.0) gm/dl Albumin/Globulin Ratio (0.9-2) Lipase (73-393) U/L Urine Color Yellow Urine Appearance Clear (Clear) Urine pH 6.0 (4.5-7.5) Ur Specific [place] > 1.045 H (1.000-1.030) Urine Protein Negative (Negative) Urine Glucose (UA) Negative (Negative) Urine Ketones Negative (Negative) Urine Blood Trace H (Negative) Urine Nitrite Negative (Negative) Urine Bilirubin Negative (Negative) Urine Urobilinogen Negative (Negative) Ur Leukocyte Esterase Negative (Negative) Urine WBC (Auto) 1-5 (0-5) /hpf Urine RBC (Auto) 0-4 (0-4) /hpf U Hyaline Cast (Auto) 0 (0-5) /lpf U Epithel Cells (Auto) 10-20 H (0-5) /lpf Urine Bacteria (Auto) Negative (Negative) COVID-19 Eval Order SARS-CoV-2 (PCR) (Negative) Blood Type A Positive Antibody Screen NEGATIVE Imaging Data Radiologist's Impression: Abdomen/Pelvis CT 02/21/21 12:03 CT OF THE ABDOMEN AND PELVIS WITH CONTRAST CLINICAL HISTORY: Abdominal pain status post hernia surgery. COMPARISON STUDY: CT of the abdomen and pelvis September 05, 2020. TECHNIQUE: Following IV administration of 120 mL of Optiray, axial images of the abdomen and pelvis were obtained from the lung bases to the proximal femurs. Images were reviewed in the axial, sagittal, and coronal planes. IV contrast was administered without complication. Automated exposure control was utilized for the study. A dose lowering technique was utilized adhering to the principles of ALARA. FINDINGS: Please note that the chest CT will be reported separately. No biliary or pancreatic ductal dilatation is present. The spleen, adrenal glands and kidneys are unremarkable. There is no hydronephrosis. There is trace stranding adjacent to the pancreatic tail. No pericholecystic infiltration is present. Subcentimeter segment 6 hepatic lesion is likely benign. There is probable hepatic steatosis. There is no evidence for a bowel obstruction. Sigmoid anastomosis is noted. There is a small bowel anastomosis is well. There is mild mesenteric infiltration. This may be postsurgical. Postoperative findings consistent with ventral hernia repair. Note is made of an 8 x 5.1 x 3.7 cm fluid and gas containing rim-enhancing fluid collection within the subcutaneous tissues of the operative bed. There is adjacent infiltration. This communicates with the anterior abdominal wall musculature which contains fluid and gas as well. No intraperitoneal component is identified. Several adjacent small bowel loops are noted however no definite fistulas identified. No acute fracture or suspicious lesion is identified within visualized skeletal structures. IMPRESSION: 1. 8 x 5.1 x 3.7 cm fluid and gas containing ventral midline rim enhancing fluid collection within the subcutaneous tissues following hernia repair. Adjacent infiltration. Although this could reflect a seroma, the appearance favors an abscess. This process communicates with the adjacent anterior abdominal wall musculature which contains fluid and gas within the operative bed. 2. Mild mesenteric infiltration which is likely postsurgical. 3. Trace stranding adjacent to the pancreatic tail. Although unlikely, this could be correlated with serum lipase level to exclude acute pancreatitis. ACT 112: Negative or not required by law. Electronically signed by: Florentino Estevez M.D. 02/21/2021 1:20 PM Chest CTA 02/21/21 12:03 CT ANGIOGRAPHY OF THE CHEST, PULMONARY EMBOLUS PROTOCOL CLINICAL HISTORY: Shortness of breath. Recent hernia surgery. COMPARISON STUDY: Chest CT September 25, 2018. Chest radiograph September 05, 2020. TECHNIQUE: Following IV administration of 120 mL of Optiray, helical axial imag es of the chest were obtained utilizing the pulmonary embolus protocol. Maximal intensity projections and sagittal and coronal reformats were viewed on an independent 3D workstation. IV contrast was administered without complication. Automated exposure control was utilized for the study. A dose lowering technique was utilized adhering to the principles of ALARA. CT DOSE: 1171.14 mGycm FINDINGS: No pulmonary emboli are identified. There is no thoracic aortic dissection. Size of the heart is at the upper limits of normal. There is no pericardial effusion. No pneumothorax or pleural effusion is noted. There is no consolidation to suggest pneumonia. There are no suspicious pulmonary nodules. Central airways are patent. Mild elevation the right hemidiaphragm is unchanged. Abdomen and pelvis CT will be reported separately. IMPRESSION: 1. No pulmonary emboli identified. 2. No acute process within the chest. ACT 112: Negative or not required by law. Electronically signed by: Florentino Estevez M.D. 02/21/2021 12:59 PM ECG Data Attestation: I personally reviewed and interpreted this ECG as follows: Indication: + abdominal pain, + chest pain and + nausea Rate (beats per minute): 108 Rhythm: + sinus tachycardia ECG Intervals/blocks: + Normal QRS and + Normal QT ECG [place]: + Left axis deviation ECG ST segments: + ST depression (I, II, V5-6) Comparison ECG Date: from (09/05/2020) Change: the following changes noted (St depression) MDM Narrative This is a 70-year-old female who presents to the emergency department with complaints of abdominal pain, fevers, chills. Patient is recently postop from [facility] following repair of an incisional hernia. Patient was concerned about occult infection as she has had this previously postop. Patient was initially tachycardic, was started on IV fluids and given medication for pain which did help with her symptoms and her heart rate began to slow. Patient found to have a leukocytosis, and on CT imaging found to have a postop intra- abdominal infection. Case discussed with [facility] who was happy to accept her in transfer however they have no current available beds. Patient was started on IV antibiotics and case discussed with [facility] hospitalist team here while transfer pending. Patient remained hemodynamically stable throughout, made aware of all results and was in agreement with plan. An order was placed for continuous cardiac monitoring. The monitor shows a rate of _82_ with _normal sinus_ rhythm. Impression & Plan Abdominal pain, Abscess of postoperative wound of abdominal wall Discharge Plan Visit Data Chief Complaint: Illness Stated Complaint: NAUSEA,ABD PAIN,BAD HEADACHE,FEVER,S/P SURG ED Provider: Elizabeth Darden Discharge Problem: Abdominal pain, Abscess of postoperative wound of abdominal wall Patient Disposition: Transfer Acute Care Hospital Condition: Fair Forms Stand Alone Forms: [facility]ir[facility] Prescriptions Prescriptions: No Action omeprazole 20 mg Capsule,Delayed Release(Dr/Ec) 20 mg PO QAM RF: 0 [id number] C-Mn [Glucosamine Chondroitin MaxStr] 500-400 mg Capsule 1 cap PO QAM RF: 0 fluticasone propionate [Flonase Allergy Relief] 50 mcg/actuation [place],Suspension 2 spray INTRANASAL DAILY PRN (Reason: Nasal Congestion) RF: 0 citalopram 20 mg tablet 20 mg PO DAILY RF: 0 Referrals Referrals: Joshua You DO [Primary Care Provider] - Discharge Problem: Abdominal pain Qualifiers: Abdominal location: generalized Qualified Code(s): R10.84 - Generalized abdominal pain
--- NOTE | 2021-02-21 13:22 | CT Scan Report ---
CT OF THE ABDOMEN AND PELVIS WITH CONTRAST CLINICAL HISTORY: Abdominal pain status post hernia surgery. COMPARISON STUDY: CT of the abdomen and pelvis September 05, 2020. TECHNIQUE: Following IV administration of 120 mL of Optiray, axial images of the abdomen and pelvis w ere obtained from the lung bases to the proximal femurs. Images were reviewed in the axial, sagittal, and coronal planes. IV contrast was administered without complication. Automated exposure control w as utilized for the study. A dose lowering technique was utilized adhering to the principles of ISAURA Nava. FINDINGS: Please note that the chest CT will be reported separately. No biliary or pancreatic ductal dilatation is present. The spleen, adrenal glands and kidneys are unremarkable. There is no hydroneph rosis. There is trace stranding adjacent to the pancreatic tail. No pericholecystic infiltration is p resent. Subcentimeter segment 6 hepatic lesion is likely benign. There is probable hepatic steatosis. There is no evidence for a bowel obstruction. Sigmoid anastomosis is noted. There is a small bowel a nastomosis is well. There is mild mesenteric infiltration. This may be postsurgical. Postoperative fi ndings consistent with ventral hernia repair. Note is made of an 8 x 5.1 x 3.7 cm fluid and gas conta ining rim-enhancing fluid collection within the subcutaneous tissues of the operative bed. There is a djacent infiltration. This communicates with the anterior abdominal wall musculature which contains f luid and gas as well. No intraperitoneal component is identified. Several adjacent small bowel loops are noted however no definite fistulas identified. No acute fracture or suspicious lesion is identifi ed within visualized skeletal structures. IMPRESSION: 1. 8 x 5.1 x 3.7 cm fluid and gas containing ventral midline rim enhancing fluid collection within th e subcutaneous tissues following hernia repair. Adjacent infiltration. Although this could reflect a seroma, the appearance favors an abscess. This process communicates with the adjacent anterior abdomi nal wall musculature which contains fluid and gas within the operative bed. 2. Mild mesenteric infiltration which is likely postsurgical. 3. Trace stranding adjacent to the pancreatic tail. Although unlikely, this could be correlated with serum lipase level to exclude acute pancreatitis. ACT 112: Negative or not required by law. Electronically signed by: Florentino Estevez M.D. 02/21/2021 1:20 PM
[2021-02-21] MEDS ORDERED: CIPROFLOXACIN / D5W 400 MG/200 ML BAG IV STA (13:30)
[2021-02-21] MEDS ORDERED: metroNIDAZOLE 500 MG/100 ML BAG IV STA (13:30)
[2021-02-21] MEDS: fentaNYL citrate 100 MCG/2 ML VIAL IV PRN ×2 (14:06→15:35)
[2021-02-21] MEDS ORDERED: POTASSIUM CHLORIDE / WTR 10 MEQ/100 ML PLCT IV ONE (14:52)
[2021-02-21 15:41] LABS: Appearance Urine Clear (Clear); Bacteria Urine Automated Negative (Negative); Bilirubin Urine Negative (Negative); Blood Urine Trace (Negative); Cast Urine Automated 0 /lpf (0-5); Color Urine Yellow; Glucose Urine UA Negative (Negative); Ketones Urine Negative (Negative); Leukocyte Esterase Urine Negative (Negative); Nitrite Urine Negative (Negative); Protein Urine Negative (Negative); RBC Urine Automated 0-4 /hpf (0-4); Specific Gravity Urine > 1.045 (1.000-1.030); Urobilinogen Urine Negative (Negative)
--- NOTE | 2021-02-21 15:49 | History & Physical Report ---
Date of Service February 21, 2021 Assessment & Plan (1) Sepsis: (2) S/P repair of ventral hernia: (3) Abscess of postoperative wound of abdominal wall: (4) Hypokalemia: (5) Postoperative anemia due to acute blood loss: Plan: This is a 70-year-old female who has significant past medical history of hyperlipidemia, aortic atherosclerosis, history of infectious colitis, GERD, and AFL, history of endometrial cancer status post DULCE MARIA/BSO, history of SBO who presents to ED secondary to abdominal pain and nausea x2 days. 02/08/2021 patient underwent retrorectus incisional hernia repair with mesh and lysis of adhesions by Dr. Mejia tolerated procedure well, noted post operative anemia, hgb 9.3 on day of d/c. 2 days ago developed fever, nausea and abdominal pain. CT a/p: 8 x 5.1 x 3.7 cm fluid and gas containing ventral midline rim enhancing fluid collection within the subcutaneous tissues following hernia repair. Adjacent infiltration. Although this could reflect a seroma, the appearance favors an abscess. This process communicates with the adjacent anterior abdominal wall musculature which contains fluid and gas within the operative bed. On arrival pt met sepsis criteria 2/2 to leukocytosis and tachycardia per CMS guidelines. She received IV fluid resuscitation as well as broad-spectrum antibiotics with IV ciprofloxacin and Flagyl. Her lactic acid was WNL. Source: Postoperative abscess a ventral hernia repair, UA negative and CTA chest negative for infection/PE ED provider spoke to Dr. Covington of [facility] and pt is accepted to his service once a bed becomes available Sepsis Status post ventral hernia repair with mesh and lysis of adhesions on 02/08 Abscess of postoperative wound of abdominal wall admit to PCU continue IV cipro an flagyl IVF + 20meq KCL 110 cc/hr x 2 L follow cbc, blood cultures IV APAP for mild pain; IV morphine for severe pain Antiemetics N.p.o. except sips and chips Encourage incentive spirometry SCD/teds Hypokalemia Replace Monitor Postoperative acute blood loss anemia Preop hemoglobin 12.0 Hemoglobin on day of discharge 9.3 H&H 9.5 and 28.3 today Monitor DVT prophylaxis: SCD/teds, avoid chemical prophylaxis in event surgery required Dispo: PCU, transfer to [facility] when bed becomes available PCP: Avelino Full code Patient was seen and examined in collaboration with Dr. Acosta, please see addendum History of Present Illness Chief Complaint: Abdominal pain and nausea x 2 days. Primary Care Provider: Joshua You, This is a 70-year-old female who has significant past medical history of hyperlipidemia, aortic atherosclerosis, history of infectious colitis, GERD, and AFL, history of endometrial cancer status post DULCE MARIA/BSO, history of SBO who presents to ED secondary to abdominal pain and nausea x2 days. Of significance on 02/08 patient underwent a retrorectus incisional hernia repair with mesh and lysis of adhesions by Dr. Mejia at [facility]. She tolerated the procedure well and was discharged on postop day 3 without any postoperative complications. She was seen and evaluated in clinic 2 days prior and incisional drains were pulled. Unfortunately upon returning home patient began to feel unwell complaining of fever with a T-max of 102, chills, sweats, headache and nausea. She recalls a prior intra-abdominal procedure due to endometrial cancer that resulted in postoperative infection and was concerned therefore she came to ED. In ED patient did meet SIRS criteria secondary to leukocytosis and tachycardia. She underwent a CTA of her abdomen pelvis which revealed a 8 x 5.1 x 3.7 cm fluid and gas containing ventral midline rim-enhancing fluid collection within the subcutaneous tissues following hernia repair with adjacent infiltration. This appearance of favors an abscess. This process communicates with the adjacent anterior wall abdominal musculature which also contains fluid and gas within the operative bed. She received IV fluid resuscitation and her lactic acid was within normal limits. She also received IV analgesia and IV ciprofloxacin and Flagyl for antibiotic coverage. ER provider Dr. Darden disc ussed case with [facility] Dr. Covington and she has been accepted for tertiary center transfer; however unfortunately due to bed availability she will require inpatient hospitalization until bed is available. Upon my evaluation patient does admit to feeling more comfortable since arriving to ED. She continues to complain of generalized abdominal pain with increasing pain in her left upper quadrant and left lateral abdomen. She describes the pain as a constant ache and rates it at a 6 out of 10. It is made worse with movement and walking and improved with rest. She also notes improvement with administration of IV pain medications. Over the last 2 days she has had significant decrease in appetite due to nausea and unable to tolerate oral intake. She denies any lightheadedness, dizziness, syncope, chest pain, shortness of breath, cough, URI symptoms, emesis, hematemesis, melena or hematochezia. Her last bowel movement was yesterday and it was normal for her. Allergies Allergy/AdvReac Type Severity Reaction Status Date / Time Penicillins Allergy Severe FACIAL Verified 02/21/21 12:23 SWELLING, RASH Sulfa (Sulfonamide Allergy Severe VOMITING Verified 02/21/21 12:23 Antibiotics) Home Medications Medication Instructions Recorded Confirmed Type [id number] C-Mn 500 1 cap PO QAM 03/25/18 02/21/21 History mg-400 mg capsule (Glucosamine Chondroitin Maximum Strength) omeprazole 20 mg capsule,delayed 20 mg PO QAM 03/25/18 02/21/21 History release fluticasone propionate 50 2 spray INTRANASAL DAILY PRN 01/09/19 02/21/21 History mcg/actuation nasal spray,suspension (Flonase Allergy Relief) citalopram 20 mg tablet 20 mg PO DAILY 09/05/20 02/21/21 History Past Med/Surg History Medical History (Updated 02/21/21 @ 15:41 by Kristie Ruffin PA-C) Anxiety Barretts esophagus Diverticular disease Endometrial adenocarcinoma Fatty liver disease, nonalcoholic GERD (gastroesophageal reflux disease) Hiatal hernia Osteoarthritis Surgical History (Updated 02/21/21 @ 15:41 by Kristie Ruffin PA-C) History of adenoidectomy History of bilateral tubal ligation History of cataract surgery BILATERAL History of tonsillectomy History of ventral hernia repair S/P small bowel resection DULCE MARIA-BSO, omenectomy, small bowel resection for endometrial adenocarcinoma involving rectosigmoid colon S/P DULCE MARIA-BSO Status post chemotherapy PT REPORTS FIRST CHEMO TX 05/14/18 Family History Sister Family hx of colon cancer Father Heart disease Mother Heart disease Social History Smoking Status: Former smoker Second Hand Exposure: No; Hx Alcohol Use: No Hx Substance Use: No Preferred Language: Mohawk Communication Ability: Effective 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 Beliefs That Will Affect Care: None Current Living Situation: Family Feels Safe at Home: Yes Assistive Devices: None Review of Systems Review of Systems: All systems reviewed & are unremarkable except as noted in HPI & below Physical Exam Physical Exam: Constitutional: WD/WN, acutely ill-appearing female, vitals as above, NAD, sitting up in bed, pleasant, conversing easily Head: Normocephalic, Atraumatic Eyes: PERRL, conjunctivae normal, anicteric sclerae ENMT: external ear and nose normal, oropharynx normal Neck: trachea midline, no thyromegaly normal visual inspection Respiratory: normal respiratory effort, lungs clear to auscultation, no wheeze, rales, rhonchi. Normal insp/exp effort, no accessory muscle use Cardiovascular: RRR, no murmur, no edema Vessels: no JVD or carotid bruit Chest: normal inspection of chest Abdomen: Ventral incision well-healed with no surrounding erythema, few subcutaneous ecchymoses noted on skin, soft, positive and normal bowel sounds, soft, tender to light palpation, no hepatosplenomegaly Musculoskeletal: no cyanosis or clubbing, extremities motor strength 5/5 Skin: no rashes, warm and dry normal turgor Neurologic: PERRL, EOMI, accommodation nl, no face palsy, no dysarthria CN's II-XI intact bilaterally and moves all extremities Psychiatric: A+Ox3, euthymic affect Lymphatic: no cervical or axillary lymphadenopathy : deferred Results & Data Results & Data ([facility]) Vital Signs (Past 12 Hours) Vital Signs Temp Pulse Pulse Resp BP BP Pulse Ox 02/21/21 15:00 83 16 120/66 96 02/21/21 14:30 81 19 119/66 95 02/21/21 14:00 92 H 20 125/68 96 02/21/21 13:30 95 H 26 H 123/69 95 02/21/21 13:00 103 H 19 130/75 97 02/21/21 12:30 100 H 28 H 135/75 95 02/21/21 12:00 103 H 26 H 138/75 95 02/21/21 11:30 103 H 26 H 144/74 H 96 02/21/21 11:11 106 H 24 138/76 96 02/21/21 10:23 37.1 C 121 H 20 123/69 95 Diagnostic Findings Abdomen/Pelvis CT 02/21/21 12:03 CT OF THE ABDOMEN AND PELVIS WITH CONTRAST CLINICAL HISTORY: Abdominal pain status post hernia surgery. COMPARISON STUDY: CT of the abdomen and pelvis September 05, 2020. TECHNIQUE: Following IV administration of 120 mL of Optiray, axial images of the abdomen and pelvis were obtained from the lung bases to the proximal femurs. Images were reviewed in the axial, sagittal, and coronal planes. IV contrast was administered without complication. Automated exposure control was utilized for the study. A dose lowering technique was utilized adhering to the principles of ALARA. FINDINGS: Please note that the chest CT will be reported separately. No biliary or pancreatic ductal dilatation is present. The spleen, adrenal glands and kidneys are unremarkable. There is no hydronephrosis. There is trace stranding adjacent to the pancreatic tail. No pericholecystic infiltration is present. Subcentimeter segment 6 hepatic lesion is likely benign. There is probable hepatic steatosis. There is no evidence for a bowel obstruction. Sigmoid anastomosis is noted. There is a small bowel anastomosis is well. There is mild mesenteric infiltration. This may be postsurgical. Postoperative findings consistent with ventral hernia repair. Note is made of an 8 x 5.1 x 3.7 cm fluid and gas containing rim-enhancing fluid collection within the subcutaneous tissues of the operative bed. There is adjacent infiltration. This communicates with the anterior abdominal wall musculature which contains fluid and gas as well. No intraperitoneal component is identified. Several adjacent small bowel loops are noted however no definite fistulas identified. No acute fracture or suspicious lesion is identified within visualized skeletal structures. IMPRESSION: 1. 8 x 5.1 x 3.7 cm fluid and gas containing ventral midline rim enhancing fluid collection within the subcutaneous tissues following hernia repair. Adjacent infiltration. Although this could reflect a seroma, the appearance favors an abscess. This process communicates with the adjacent anterior abdominal wall musculature which contains fluid and gas within the operative bed. 2. Mild mesenteric infiltration which is likely postsurgical. 3. Trace stranding adjacent to the pancreatic tail. Although unlikely, this could be correlated with serum lipase level to exclude acute pancreatitis. ACT 112: Negative or not required by law. Electronically signed by: Florentino Estevez M.D. 02/21/2021 1:20 PM Chest CTA 02/21/21 12:03 CT ANGIOGRAPHY OF THE CHEST, PULMONARY EMBOLUS PROTOCOL CLINICAL HISTORY: Shortness of breath. Recent hernia surgery. COMPARISON STUDY: Chest CT September 25, 2018. Chest radiograph September 05, 2020. TECHNIQUE: Following IV administration of 120 mL of Optiray, helical axial images of the chest were obtained utilizing the pulmonary embolus protocol. Maximal intensity projections and sagittal and coronal reformats were viewed on an independent 3D workstation. IV contrast was administered without complication. Automated exposure control was utilized for the study. A dose lowering technique was utilized adhering to the principles of ALARA. CT DOSE: 1171.14 mGycm FINDINGS: No pulmonary emboli are identified. There is no thoracic aortic dissection. Size of the heart is at the upper limits of normal. There is no pericardial effusion. No pneumothorax or pleural effusion is noted. There is no consolidation to suggest pneumonia. There are no suspicious pulmonary nodules. Central airways are patent. Mild elevation the right hemidiaphragm is unchanged. Abdomen and pelvis CT will be reported separately. IMPRESSION: 1. No pulmonary emboli identified. 2. No acute process within the chest. ACT 112: Negative or not required by law. Electronically signed by: Florentino Estevez M.D. 02/21/2021 12:59 PM Medications Administered Medication List Fentanyl Citrate (Fentanyl Citrate 100 Mcg/2 Ml Vial) 50 mcg IV Q15M PRN PRN Reason: Pain Stop: 03/07/21 13:08 Last Admin: 02/21/21 14:06 Dose: 50 mcg Documented by: [id number] Sodium Chloride (Nss 1000ml) 1,000 mls @ 125 mls/hr IV .Q8H NORBERTO Stop: 03/23/21 11:44 Last Admin: 02/21/21 13:15 Dose: 125 mls/hr Documented by: [id number] Potassium Chloride (K Alfonso / Wtr) 10 meq in 100 mls @ 100 mls/hr IV ONE ONE Stop: 02/21/21 15:51 Last Admin: 02/21/21 15:25 Dose: 100 mls/hr Documented by: [id number] Discontinued Medications Acetaminophen (Ofirmev) 1,000 mg in 100 mls @ 400 mls/hr IV NOW STA Stop: 02/21/21 13:23 Last Infusion: 02/21/21 13:31 Dose: 0 mls/hr Documented by: [id number] Admin: 02/21/21 13:16 Dose: 400 mls/hr Documented by: [id number] Ciprofloxacin (Cipro / D5w) 400 mg in 200 mls @ 100 mls/hr IV NOW STA; Protocol Stop: 02/21/21 15:29 Last Admin: 02/21/21 14:11 Dose: 100 mls/hr Documented by: [id number] Metronidazole (Flagyl) 500 mg in 100 mls @ 100 mls/hr IV NOW STA Stop: 02/21/21 14:29 Last Infusion: 02/21/21 15:21 Dose: 0 mls/hr Documented by: [id number] Admin: 02/21/21 14:10 Dose: 100 mls/hr Documented by: [id number] Ioversol (Optiray 320 125ml) 120 ml IV ONCE ONE Stop: 02/21/21 12:44 Last Admin: 02/21/21 12:45 Dose: 120 ml Documented by: [id number] Ondansetron HCl (Ondansetron Inj 2 Mg/Ml 2 Ml Vial) 4 mg IV NOW STA Stop: 02/21/21 11:27 Last Admin: 02/21/21 11:29 Dose: 4 mg Documented by: [id number] ECG Rate (beats per minute): 108 Rhythm: sinus tachycardia Additional Comments: 452 MS QTc, pulmonary disease pattern noted, no change from comparison COVID-19 Results Results COVID-19 Adm Lab Results: RBC 3.30 M/uL (4.2-5.4) L 02/21/21 WBC 15.02 K/uL (4.8-10.8) H 02/21/21 Hgb 9.5 g/dL (12.0-16.0) L 02/21/21 Hct 28.3 % (37-47) L 02/21/21 Plt Count 432 K/uL (130-400) H 02/21/21 Neutrophils (%) (Auto) 87.0 % 02/21/21 Lymphocytes (%) (Auto) 4.8 % 02/21/21 Monocytes # (Auto) 1.17 K/uL (0.11-0.59) H 02/21/21 Eosinophils # (Auto) 0.00 K/uL (0-0.5) 02/21/21 Immature Granulocyte % (Auto) 0.3 % 02/21/21 Neutrophils # (Auto) 13.07 K/uL (1.4-6.5) H 02/21/21 Lymphocytes # (Auto) 0.72 K/uL (1.2-3.4) L 02/21/21 Monocytes # (Auto) 1.17 K/uL (0.11-0.59) H 02/21/21 Eosinophils # (Auto) 0.00 K/uL (0-0.5) 02/21/21 Basophils # (Auto) 0.02 K/uL (0-0.2) 02/21/21 Immature Granulocyte # (Auto) 0.04 K/uL (0.00-0.02) H 02/21/21 Na 133 mmol/L (136-145) L 02/21/21 K 3.4 mmol/L (3.5-5.1) L 02/21/21 Cl 101 mmol/L (98-107) 02/21/21 CO2 25 mmol/L (21-32) 02/21/21 Anion Gap 7.0 (3-11) 02/21/21 BUN 8 mg/dl (7-18) 02/21/21 Creatinine 0.69 mg/dl (0.6-1.2) 02/21/21 BUN/Creatinine Ratio 12.2 (10-20) 02/21/21 Glucose Level 128 mg/dl (70-99) H 02/21/21 Ca 9.1 mg/dl (8.5-10.1) 02/21/21 Total Bilirubin 0.7 mg/dl (0.2-1) 02/21/21 AST/SGOT 13 U/L (15-37) L 02/21/21 ALT/SGPT 16 U/L (12-78) 02/21/21 Alkaline Phosphatase 75 U/L (45-117) 02/21/21 Total Protein 7.3 gm/dl (6.4-8.2) 02/21/21 Albumin 2.7 gm/dl (3.4-5.0) L 02/21/21 Globulin 4.6 gm/dl (2.5-4.0) H 02/21/21 Albumin/Globulin Ratio 0.6 (0.9-2) L 02/21/21 Troponin I < 0.015 ng/ml (0-0.045) 02/21/21 COVID-19 PCR NEGATIVE (Negative) 02/21/21 Code Status & VTE Plan Code Status Full Code VTE Prophylaxis Plan VTE Prophylaxis will be ordered: Yes Supervising Physician Co-Signing Physician Notes Patient is a 70-year-old female with history of endometrial cancer S/P hysterectomy who subsequently developed incisional hernia which was repaired on February 08 presents with history of nausea, abdominal pain, fever. She is currently afebrile while in ED. Complaints of generalized pain around the incisional site. Denies any oozing of blood, pus from the incisional site. Leukocytosis at 15 K. Also noted hypokalemia 3.4. Chronic anemia at baseline hemoglobin. CT abdomen suggestive of possible seroma or abscess at incisional site. Patient is planned for transfer to [facility] for possible intervention. Patient is admitted for management while awaiting bed at [facility]. Please review HPI for complete details of presentation. On exam patient is moderately built and nourished, no apparent distress, normocephalic atraumatic, EOMI, normal breath sounds, clear to auscultation, S1- S2, no murmur, trace pedal edema, abdomen soft,+ vertical incision, mild erythema, normal bowel sounds, mild generalized tenderness, alert, awake, oriented, grossly no focal deficits. Patient is admitted for management of sepsis secondary to postoperative incisional site abscess. Agree with IV ciprofloxacin, Flagyl given penicillin allergies. Continue gentle IV fluids. Replace electrolytes as needed. Will consider surgical evaluation tomorrow if no bed available for transfer. I personally reviewed the record. Patient is interviewed and examined at bedside. Patient's care is coordinated with Kristie Ruffin PA-C. Please refer to the documentation above for details of patient's presentation and for discussion of other issues.
--- NOTE | 2021-02-21 21:16 | Discharge Summary ---
Date of Service February 21, 2021 Admission HPI Per Admitting Provider This is a 70-year-old female who has significant past medical history of hyperlipidemia, aortic atherosclerosis, history of infectious colitis, GERD, and AFL, history of endometrial cancer status post DULCE MARIA/BSO, history of SBO who presents to ED secondary to abdominal pain and nausea x2 days. Of significance on 02/08 patient underwent a retrorectus incisional hernia repair with mesh and lysis of adhesions by Dr. Mejia at [facility]. She tolerated the procedure well and was discharged on postop day 3 without any postoperative complications. She was seen and evaluated in clinic 2 days prior and incisional drains were pulled. Unfortunately upon returning home patient began to feel unwell complaining of fever with a T-max of 102, chills, sweats, headache and nausea. She recalls a prior intra-abdominal procedure due to endometrial cancer that resulted in postoperative infection and was concerned therefore she came to ED. In ED patient did meet SIRS criteria secondary to leukocytosis and tachycardia. She underwent a CTA of her abdomen pelvis which revealed a 8 x 5.1 x 3.7 cm fluid and gas containing ventral midline rim-enhancing fluid collection within the subcutaneous tissues following hernia repair with adjacent infiltration. This appearance of favors an abscess. This process communicates with the adjacent anterior wall abdominal musculature which also contains fluid and gas within the operative bed. She received IV fluid resuscitation and her lactic acid was within normal limits. She also received IV analgesia and IV ciprofloxacin and Flagyl for antibiotic coverage. ER provider Dr. Darden discussed case with [facility] Dr. Covington and she has been accepted for tertiary center transfer; however unfortunately due to bed availability she will require inpatient hospitalization until bed is available. Upon my evaluation patient does admit to feeling more comfortable since arriving to ED. She continues to complain of generalized abdominal pain with increasing pain in her left upper quadrant and left lateral abdomen. She describes the pain as a constant ache and rates it at a 6 out of 10. It is made worse with movement and walking and improved with rest. She also notes improvement with administration of IV pain medications. Over the last 2 days she has had significant decrease in appetite due to nausea and unable to tolerate oral intake. She denies any lightheadedness, dizziness, syncope, chest pain, shortness of breath, cough, URI symptoms, emesis, hematemesis, melena or hematochezia. Her last bowel movement was yesterday and it was normal for her. Admission Exam Per Admitting Provider Physical Exam: Constitutional: WD/WN, acutely ill-appearing female, vitals as above, NAD, sitting up in bed, pleasant, conversing easily Head: Normocephalic, Atraumatic Eyes: PERRL, conjunctivae normal, anicteric sclerae ENMT: external ear and nose normal, oropharynx normal Neck: trachea midline, no thyromegaly normal visual inspection Respiratory: normal respiratory effort, lungs clear to auscultation, no wheeze, rales, rhonchi. Normal insp/exp effort, no accessory muscle use Cardiovascular: RRR, no murmur, no edema Vessels: no JVD or carotid bruit Chest: normal inspection of chest Abdomen: Ventral incision well-healed with no surrounding erythema, few subcutaneous ecchymoses noted on skin, soft, positive and normal bowel sounds, soft, tender to light palpation, no hepatosplenomegaly Musculoskeletal: no cyanosis or clubbing, extremities motor strength 5/5 Skin: no rashes, warm and dry normal turgor Neurologic: PERRL, EOMI, accommodation nl, no face palsy, no dysarthria CN's II-XI intact bilaterally and moves all extremities Psychiatric: A+Ox3, euthymic affect Lymphatic: no cervical or axillary lymphadenopathy : deferred Principal Diagnosis Sepsis S/P repair of ventral hernia Abscess of postoperative wound of abdominal wall Hypokalemia Postoperative anemia due to acute blood loss Discharge Data Allergies Allergy/AdvReac Type Severity Reaction Status Date / Time Penicillins Allergy Severe FACIAL Verified 02/21/21 12:23 SWELLING, RASH Sulfa (Sulfonamide Allergy Severe VOMITING Verified 02/21/21 12:23 Antibiotics) Consultations 02/21/21 14:08 ED Decision to Admit Stat Ordered Studies 02/21/21 12:03 CT abd pelvis IV con only Stat CT angio chest PE protocol Stat Hospital Course (1) Sepsis: (2) S/P repair of ventral hernia: (3) Abscess of postoperative wound of abdominal wall: (4) Hypokalemia: (5) Postoperative anemia due to acute blood loss: This is a 70-year-old female who has significant past medical history of hyperlipidemia, aortic atherosclerosis, history of infectious colitis, GERD, and AFL, history of endometrial cancer status post DULCE MARIA/BSO, history of SBO who presents to ED secondary to abdominal pain and nausea x2 days. 02/08/2021 patient underwent retrorectus incisional hernia repair with mesh and lysis of adhesions by Dr. Mejia tolerated procedure well, noted post operative anemia, hgb 9.3 on day of d/c. 2 days ago developed fever, nausea and abdominal pain. CT a/p: 8 x 5.1 x 3.7 cm fluid and gas containing ventral midline rim enhancing fluid collection within the subcutaneous tissues following hernia repair. Adjacent infiltration. Although this could reflect a seroma, the appearance favors an abscess. This process communicates with the adjacent anterior abdominal wall musculature which contains fluid and gas within the operative bed. On arrival pt met sepsis criteria 2/2 to leukocytosis and tachycardia per CMS guidelines. She received IV fluid resuscitation as well as broad-spectrum antibiotics with IV ciprofloxacin and Flagyl. Her lactic acid was WNL. Source: Postoperative abscess a ventral hernia repair, UA negative and CTA chest negative for infection/PE ED provider spoke to Dr. Covington of [facility] and pt is accepted to his service once a bed becomes available Sepsis Status post ventral hernia repair with mesh and lysis of adhesions on 02/08 Abscess of postoperative wound of abdominal wall admit to PCU continue IV cipro an flagyl IVF + 20meq KCL 110 cc/hr x 2 L follow cbc, blood cultures IV APAP for mild pain; IV morphine for severe pain Antiemetics N.p.o. except sips and chips Encourage incentive spirometry SCD/teds Hypokalemia Replace Monitor Postoperative acute blood loss anemia Preop hemoglobin 12.0 Hemoglobin on day of discharge 9.3 H&H 9.5 and 28.3 today Monitor DVT prophylaxis: SCD/teds, avoid chemical prophylaxis in event surgery required Dispo: PCU, transfer to [place] when bed becomes available PCP: Avelino Full code Patient was seen and examined in collaboration with Dr. Acosta, please see addendum Discharge Plan Discharge Items Patient Disposition: Transfer Acute Care Hospital Reason For Visit: POST OP INCISIONAL HERNIA ABSCESS Discharge Diagnosis: Sepsis S/P repair of ventral hernia Abscess of postoperative wound of abdominal wall Hypokalemia Condition on Discharge: Fair Activity: Per Instructions section Lifting: No more than 10 pounds Bathing: Keep incision dry Non-emergency contact: Primary Care Provider Call non-emergency contact if: you have any medication questions, your symptoms worsen, your pain is not controlled, your pain is worsening, your pain is unusual for you, your pain is concerning for you, you have a fever and your temperature is above 101 Follow-up/Referrals: Joshua You, [Primary Care Provider] - Diet: Nothing by Mouth Addtl Attending Provider Instructions: MEDICATION CHANGES: You were started on 2 IV antibiotics for Abscess 1. Cipro 400mg IV Q12 hours 2. Flagyl 500mg IV Q8 hours SUMMARY OF TEST RESULTS: A CT Scan of your abdomen/pelvis revealed a 8 x 5.1 x 3.7 cm fluid collection within the subcutaneous tissues following your hernia repair concerning for Abscess. Due to this finding you are being transferred to [facility] in [place] to be under the care of your surgeon Dr. Mejia. PENDING TEST RESULTS: none RECOMMENDATIONS FOR FOLLOW-UP: Follow up with your Primary Care Provider and Surgeon upon discharge from [facility] OTHER INSTRUCTIONS: Seek medical attention if you have: * temperature above 101 * chest pain or trouble breathing * abdominal pain, nausea, vomiting * diarrhea, dark stools or bloody stools * any unanswered questions or concerns Call 911 if symptoms are severe. Please take good care of yourself. It has been a pleasure taking care of you. Please take care of yourself. If you have any questions regarding your recent hospitalization please contact [facility] and request [facility] Hospitalist @ [phone]. Kristie Ruffin PA-C Pending Studies at Discharge: No Stand-Alone Forms: My [facility] Skilled Items Patient informed of condition?: Yes DNR: No Discharge Level of Care: Other Communicable Disease: No Discharge Prognosis: Stable Lines: [facility] Urinary Catheter: No Medications and DC Order Prescriptions: Continued omeprazole 20 mg Capsule,Delayed Release(Dr/Ec) 20 mg PO QAM RF: 0 [id number] C-Mn [Glucosamine Chondroitin MaxStr] 500-400 mg Capsule 1 cap PO QAM RF: 0 fluticasone propionate [Flonase Allergy Relief] 50 mcg/actuation [place],Suspens ion 2 spray INTRANASAL DAILY PRN (Reason: Nasal Congestion) RF: 0 citalopram 20 mg tablet 20 mg PO DAILY RF: 0 Discharge Orders: Discharge Order (Routine); Ordered 02/21/21 Ordered By: Kristie Ruffin Admission Data Admit Date/Time: 02/21/21 14:51 Attending Provider: Chun Acosta Admit Provider: Chun Acosta Primary Care Provider: Joshua You Other Providers: Chun Acosta
[2021-02-21] MEDS: ONDANSETRON INJ 2 MG/ML 2 ML VIAL IV PRN (21:49)
[2021-02-21] MEDS: NSS + 20MEQ KCL 20 MEQ/1,000 ML BAG IV SCH (21:56)
[2021-02-21] MEDS: metroNIDAZOLE 500 MG/100 ML BAG IV SCH (21:58)
[2021-02-21] MEDS: ACETAMINOPHEN 1,000 MG/100 ML VIAL IV PRN (23:43)
[2021-02-22] MEDS: CIPROFLOXACIN / D5W 400 MG/200 ML BAG IV SCH ×2 (02:11→13:48)
[2021-02-22] MEDS ORDERED: HEPARIN 100 UNIT/ML 5ML FLUSH FLUSH PRN (03:02)
[2021-02-22] MEDS: metroNIDAZOLE 500 MG/100 ML BAG IV SCH ×2 (05:59→13:48)
[2021-02-22 06:32] LABS: Basophils # (auto) 0.02 K/uL (0-0.2); Basophils % (auto) 0.3 %; Eosinophils # (auto) 0.01 K/uL (0-0.5); Eosinophils % (auto) 0.2 %; Hemoglobin 8.5 g/dL (12.0-16.0); Immature Granulocytes # (auto) 0.01 K/uL (0.00-0.02); Immature Granulocytes % (auto) 0.2 %; Lymphocytes # (auto) 0.79 K/uL (1.2-3.4); Lymphocytes % (auto) 11.9 %; Mean Corpuscular Hemoglobin 29.1 pg (25-34); Mean Corpuscular Hgb Conc 32.7 g/dL (32-36); Mean Platelet Volume 9.1 fL (7.4-10.4); Monocytes # (auto) 0.63 K/uL (0.11-0.59); Monocytes % (auto) 9.5 %; Neutrophils # (auto) 5.16 K/uL (1.4-6.5); Neutrophils % (auto) 77.9 %; Platelet Count 371 K/uL (130-400); RDW Coefficient of Variation 14.4 % (11.5-14.5); RDW Standard Deviation 47.1 fL (36.4-46.3); Red Blood Count 2.92 M/uL (4.2-5.4); White Blood Count 6.62 K/uL (4.8-10.8)
[2021-02-22 07:03] LABS: Albumin Level 2.2 gm/dl (3.4-5.0); BUN Creatinine Ratio 13.4 (10-20); Calcium 8.6 mg/dl (8.5-10.1); Creatinine Clr Calc Pharmacy 84.4 ml/min; Est GFR (African American) 107.2 ml/min; Est GFR (Non-African American) 92.5 ml/min; Magnesium 2.3 mg/dl (1.8-2.4); Potassium 3.8 mmol/L (3.5-5.1)
[2021-02-22] MEDS: NSS + 20MEQ KCL 20 MEQ/1,000 ML BAG IV SCH ×2 (07:05→17:38)
[2021-02-22 07:06] LABS: Albumin Globulin Ratio 0.6 (0.9-2); Bilirubin,Total 0.3 mg/dl (0.2-1); Total Protein 6.2 gm/dl (6.4-8.2)
[2021-02-22] MEDS ORDERED: CITALOPRAM 20 MG TAB PO SCH (09:00)
[2021-02-22] MEDS ORDERED: FAMOTIDINE 20 MG in SYRINGE 3 ML IV SCH (09:00)
[2021-02-22] MEDS: MoRPHine SULFATE 4 MG/ML 1 ML CARP\\VIAL IV PRN ×2 (09:12→17:37)
[2021-02-22] MEDS: ONDANSETRON INJ 2 MG/ML 2 ML VIAL IV PRN ×2 (09:17→15:25)
[2021-02-22] MEDS: ACETAMINOPHEN 1,000 MG/100 ML VIAL IV PRN (15:27)
--- NOTE | 2021-02-22 16:20 | Hospitalist Progress Note ---
Date of Service February 22, 2021 Assessment & Plan (1) Sepsis: (2) S/P repair of ventral hernia: (3) Abscess of postoperative wound of abdominal wall: (4) Hypokalemia: (5) Postoperative anemia due to acute blood loss: Plan: Patient is a 70 yr female with PMH of hyperlipidemia, aortic atherosclerosis, history of infectious colitis, GERD, and AFL, history of endometrial cancer status post DULCE MARIA/BSO, history of SBO who presents to ED secondary to abdominal pain and nausea x2 days. 02/08/2021 patient underwent retrorectus incisional hernia repair with mesh and lysis of adhesions by Dr. Mejia Sepsis Abdominal abscess at the site of postoperative wound h/o ventral hernia repair -CT a/p: 8 x 5.1 x 3.7 cm fluid and gas containing ventral midline rim enhancing fluid collection within the subcutaneous tissues following hernia repair. Adjacent infiltration. Although this could reflect a seroma, the appearance favors an abscess. This process communicates with the adjacent anterior abdominal wall musculature which contains fluid and gas within the operative bed. -Blood cultures pending -Continue IV fluids Continue Cipro, Flagyl Day #2 White blood cell count normalized Pain is controlled NPO for now Discussed with [facility] Surgery 02/22/21 Dr. Covington at [facility] accepted the patient Plan to transfer to [facility] when bed is available Hypokalemia Replace and monitor Monitor Postoperative acute blood loss anemia Preop hemoglobin 12.0 Hemoglobin on day of discharge 9.3 Hb 8.5 today Hb drop likely dilutional due to IV fluids Monitor DVT Px: SCD/teds for now Code Status Full Code Disposition: Transfer to [facility] when bed becomes available Admission and Anticipated Discharge Date Admission Date: February 21, 2021 Subjective Patient is seen and examined bedside States having nausea Abdominal pain is controlled Discussed with surgery today Denies chest pain, shortness of breath, dizziness Waiting to be transferred to tertiary care facility. Review of Systems Review of Systems: All systems reviewed & are unremarkable except as noted in Subjective Physical Exam Physical Exam: Physical Exam: Vitals signs as noted above General Appearance:Moderately built and nourished, no apparent distress Head: normocephalic, Atraumatic Eyes: normal inspection, EOMI Neck: supple, Trachea midline Respiratory/Chest: Normal breath sounds, CTA, No accessory muscle use Cardiovascular: S1, S2, No murmur Abdomen/GI:Soft, Non tender, healing vertical incision, mild erythema, normal bowel sounds Extremities/Musculoskeletal:normal inspection, Trace edema Neurologic/Psych:AAOX3, grossly no focal neurological deficits Skin: normal color, warm Results & Data Results & Data ([facility]) Vital Signs (Past 12 Hours) Vital Signs Temp Pulse Resp BP Pulse Ox 02/22/21 11:00 36.8 C 77 18 121/69 96 02/22/21 04:17 36.7 C 71 16 101/60 95 Laboratory Results Short CBC 02/22/21 Range/Units 05:37 WBC 6.62 (4.8-10.8) K/uL Hgb 8.5 L (12.0-16.0) g/dL Hct 26.0 L (37-47) % Plt Count 371 (130-400) K/uL BMP 02/22/21 05:37 Sodium 138 Potassium 3.8 Chloride 108 H Carbon Dioxide 25 BUN 8 Creatinine 0.61 Glucose 96 Calcium 8.6 Liver Function 02/22/21 Range/Units 05:37 Total Bilirubin 0.3 (0.2-1) mg/dl AST 7 L (15-37) U/L ALT 11 L (12-78) U/L Alkaline Phosphatase 57 (45-117) U/L Albumin 2.2 L (3.4-5.0) gm/dl
--- NOTE | 2021-02-22 17:28 | Electrocardiogram Report ---
Test Reason : Blood Pressure : / mmHG Vent. Rate : 108 BPM Atrial Rate : 108 BPM P-R Int : 140 ms QRS Dur : 088 ms QT Int : 338 ms P-R-T Axes : 008 -58 022 degrees QTc Int : 452 ms Sinus tachycardia Possible Left atrial enlargement Left axis deviation Abnormal ECG When compared with ECG of 05-SEP-2020 05:08, No significant change was found Confirmed by Sy Simmons ([id number]) on 02/22/2021 5:28:08 PM Referred By: REFERRED SELF Confirmed By:Tej Simmons
--- NOTE | 2021-02-23 07:12 | Discharge Summary ---
Date of Service February 23, 2021 Admission HPI Per Admitting Provider Chief Complaint: Abdominal pain and nausea x 2 days. Primary Care Provider: Joshua You DO This is a 70-year-old female who has significant past medical history of hyperlipidemia, aortic atherosclerosis, history of infectious colitis, GERD, and AFL, history of endometrial cancer status post DULCE MARIA/BSO, history of SBO who presents to ED secondary to abdominal pain and nausea x2 days. Of significance on 02/08 patient underwent a retrorectus incisional hernia repair with mesh and lysis of adhesions by Dr. Mejia at [facility]. She tolerated the procedure well and was discharged on postop day 3 without any postoperative complications. She was seen and evaluated in clinic 2 days prior and incisional drains were pulled. Unfortunately upon returning home patient began to feel unwell complaining of fever with a T-max of 102, chills, sweats, headache and nausea. She recalls a prior intra-abdominal procedure due to endometrial cancer that resulted in postoperative infection and was concerned therefore she came to ED. In ED patient did meet SIRS criteria secondary to leukocytosis and tachycardia. She underwent a CTA of her abdomen pelvis which revealed a 8 x 5.1 x 3.7 cm fluid and gas containing ventral midline rim-enhancing fluid collection within the subcutaneous tissues following hernia repair with adjacent infiltration. This appearance of favors an abscess. This process communicates with the adjacent anterior wall abdominal musculature which also contains fluid and gas within the operative bed. She received IV fluid resuscitation and her lactic acid was within normal limits. She also received IV analgesia and IV ciprofloxacin and Flagyl for antibiotic coverage. ER provider Dr. Darden discussed case with [facility] Dr. Covington and she has been accepted for tertiary center transfer; however unfortunately due to bed availability she will require inpatient hospitalization until bed is available. Upon my evaluation patient does admit to feeling more comfortable since arriving to ED. She continues to complain of generalized abdominal pain with increasing pain in her left upper quadrant and left lateral abdomen. She describes the pain as a constant ache and rates it at a 6 out of 10. It is made worse with movement and walking and improved with rest. She also notes improvement with administration of IV pain medications. Over the last 2 days she has had significant decrease in appetite due to nausea and unable to tolerate oral intake. She denies any lightheadedness, dizziness, syncope, chest pain, shortness of breath, cough, URI symptoms, emesis, hematemesis, melena or hematochezia. Her last bowel movement was yesterday and it was normal for her. Admission Exam Per Admitting Provider Physical Exam Physical Exam: Constitutional: WD/WN, acutely ill-appearing female, vitals as above, NAD, sitting up in bed, pleasant, conversing easily Head: Normocephalic, Atraumatic Eyes: PERRL, conjunctivae normal, anicteric sclerae ENMT: external ear and nose normal, oropharynx normal Neck: trachea midline, no thyromegaly normal visual inspection Respiratory: normal respiratory effort, lungs clear to auscultation, no wheeze, rales, rhonchi. Normal insp/exp effort, no accessory muscle use Cardiovascular: RRR, no murmur, no edema Vessels: no JVD or carotid bruit Chest: normal inspection of chest Abdomen: Ventral incision well-healed with no surrounding erythema, few subcutaneous ecchymoses noted on skin, soft, positive and normal bowel sounds, soft, tender to light palpation, no hepatosplenomegaly Musculoskeletal: no cyanosis or clubbing, extremities motor strength 5/5 Skin: no rashes, warm and dry normal turgor Neurologic: PERRL, EOMI, accommodation nl, no face palsy, no dysarthria CN's II-XI intact bilaterally and moves all extremities Psychiatric: A+Ox3, euthymic affect Lymphatic: no cervical or axillary lymphadenopathy : deferred Principal Diagnosis Sepsis S/P repair of ventral hernia Abscess of postoperative wound of abdominal wall Hypokalemia Discharge Data Allergies Allergy/AdvReac Type Severity Reaction Status Date / Time Penicillins Allergy Severe FACIAL Verified 02/21/21 12:23 SWELLING, RASH Sulfa (Sulfonamide Allergy Severe VOMITING Verified 02/21/21 12:23 Antibiotics) Consultations 02/21/21 14:08 ED Decision to Admit Stat Ordered Studies 02/21/21 12:03 CT abd pelvis IV con only Stat CT angio chest PE protocol Stat Hospital Course (1) Sepsis: (2) S/P repair of ventral hernia: (3) Abscess of postoperative wound of abdominal wall: (4) Hypokalemia: (5) Postoperative anemia due to acute blood loss: Patient is a 70 yr female with PMH of hyperlipidemia, aortic atherosclerosis, history of infectious colitis, GERD, and AFL, history of endometrial cancer status post DULCE MARIA/BSO, history of SBO who presents to ED secondary to abdominal pain and nausea x2 days. 02/08/2021 patient underwent retrorectus incisional hernia repair with mesh and lysis of adhesions by Dr. Mejia Sepsis Abdominal abscess at the site of postoperative wound h/o ventral hernia repair -CT a/p: 8 x 5.1 x 3.7 cm fluid and gas containing ventral midline rim enhancing fluid collection within the subcutaneous tissues following hernia repair. Adjacent infiltration. Although this could reflect a seroma, the appearance favors an abscess. This process communicates with the adjacent anterior abdomin al wall musculature which contains fluid and gas within the operative bed. -Blood cultures pending -Continue IV fluids Continue Cipro, Flagyl Day #2 White blood cell count normalized Pain is controlled NPO for now Discussed with [facility] 02/22/21 Dr. Covington at [facility] accepted the patient Plan to transfer to [facility] when bed is available Hypokalemia Replace and monitor Monitor Postoperative acute blood loss anemia Preop hemoglobin 12.0 Hemoglobin on day of discharge 9.3 Hb 8.5 today Hb drop likely dilutional due to IV fluids Monitor DVT Px: SCD/teds for now Code Status Full Code Disposition: Transfer to [facility] when bed becomes available Total Time Total Time Spent Total Time Spent (In Minutes): 43 minutes Discharge Plan Discharge Items Patient Disposition: Transfer Acute Care Hospital Reason For Visit: POST OP INCISIONAL HERNIA ABSCESS Discharge Diagnosis: Sepsis S/P repair of ventral hernia Abscess of postoperative wound of abdominal wall Hypokalemia Condition on Discharge: Fair Activity: Per Instructions section Lifting: No more than 10 pounds Bathing: Keep incision dry Non-emergency contact: Primary Care Provider Call non-emergency contact if: you have any medication questions, your symptoms worsen, your pain is not controlled, your pain is worsening, your pain is unusual for you, your pain is concerning for you, you have a fever and your temperature is above 101 Follow-up/Referrals: Joshua You, [Primary Care Provider] - Diet: Nothing by Mouth Addtl Attending Provider Instructions: MEDICATION CHANGES: You were started on 2 IV antibiotics for Abscess 1. Cipro 400mg IV Q12 hours 2. Flagyl 500mg IV Q8 hours SUMMARY OF TEST RESULTS: A CT Scan of your abdomen/pelvis revealed a 8 x 5.1 x 3.7 cm fluid collection within the subcutaneous tissues following your hernia repair concerning for Abscess. Due to this finding you are being transferred to [facility] in [place] to be under the care of your surgeon Dr. Mejia. PENDING TEST RESULTS: none RECOMMENDATIONS FOR FOLLOW-UP: Follow up with your Primary Care Provider and Surgeon upon discharge from [facility] OTHER INSTRUCTIONS: Seek medical attention if you have: * temperature above 101 * chest pain or trouble breathing * abdominal pain, nausea, vomiting * diarrhea, dark stools or bloody stools * any unanswered questions or concerns Call 911 if symptoms are severe. Please take good care of yourself. It has been a pleasure taking care of you. Please take care of yourself. If you have any questions regarding your recent hospitalization please contact [facility] and request [facility] Hospitalist @ [phone]. Kristie Ruffin PA-C Pending Studies at Discharge: No Stand-Alone Forms: My [facility] Skilled Items Patient informed of condition?: Yes DNR: No Discharge Level of Care: Other Communicable Disease: No Discharge Prognosis: Stable Lines: [facility] Urinary Catheter: No Medications and DC Order Prescriptions: Continued omeprazole 20 mg Capsule,Delayed Release(Dr/Ec) 20 mg PO QAM RF: 0 [id number] C-Mn [Glucosamine Chondroitin MaxStr] 500-400 mg Capsule 1 cap PO QAM RF: 0 fluticasone propionate [Flonase Allergy Relief] 50 mcg/actuation [place],Suspension 2 spray INTRANASAL DAILY PRN (Reason: Nasal Congestion) RF: 0 citalopram 20 mg tablet 20 mg PO DAILY RF: 0 Discharge Orders: Discharge Order (Routine); Ordered 02/21/21 Ordered By: Kristie Ruffin Admission Data Admit Date/Time: 02/21/21 14:51 Attending Provider: Chun Acosta Admit Provider: Chun Acosta Primary Care Provider: Joshua You Other Providers: Chun Acosta Other Interventions: Discharge Summary Assessment (RN) Last Done: 02/22/21 16:33
== END 2021-02-22 18:00 | disposition short-term general hospital (02) | DRG 872 ==
LOC: ED 10:16 → 2S 14:51